=== PATIENT | female | born 1955 | race Caucasian/White ===

== ENCOUNTER 2022-11-05 13:15 | Outpatient (OUT) | payer MEDICARE, SELFPAY ==
--- NOTE | 2022-11-05 13:35 | XR_ITS ---
[address] [address] Patient Name: MINGO Rach PRIETO MRN: [facility]:[id number] date: 1955 Sex: F Assigned Patient Location: [facility] Current Patient Location: [facility] Accession/Order Number: [id number] Exam Date: 11/05/2022 13:40 Report Date: 11/05/2022 14:17 At the request of: MADDI BOSTON Procedure: XR abdomen 1V EXAM: XR abdomen 1V HISTORY: Kidney Stone N20.0 COMPARISON: None. TECHNIQUE: AP view of the abdomen. FINDINGS: Nonobstructive bowel gas pattern is noted. There is 6 mm calculus of the right renal region. The osseous structures are intact. IMPRESSION: Nonobstructive bowel gas pattern. Probable right nephrolithiasis. Electronically authenticated by: SHERIE BAEZ Date: 11/05/2022 14:17
== END 2022-11-05 13:16 ==
LOC: RAD 13:22
PROVIDERS: Visit Provider Urology
DX: N20.0 Calculus of kidney (principal)
CPT/HCPCS: 74018

== ENCOUNTER 2023-02-15 08:06 | Outpatient (OUT) | payer MEDICARE, SELFPAY ==
[2023-02-15 08:28] LABS: Estimated GFR (African America 52 (>=60); Estimated GFR (Non-African Ame 43 (>=60)
--- NOTE | 2023-02-15 08:35 | CT_ITS ---
[address] [address] Patient Name: MINGO PRIETO MRN: [id number] date: 1955 Sex: F Assigned Patient Location: LAB Current Patient Location: LAB Accession/Order Number: [id number] Exam Date: 02/15/2023 09:40 Report Date: 02/15/2023 15:35 At the request of: NON-STAFF PHYSICIAN Procedure: CT abdomen pelvis w con EXAMINATION: CT abdomen pelvis w con HISTORY: Recurrent Endometrial Cancer COMPARISON: 04/16/2022 TECHNIQUE: CT images were created with IV contrast. Axial, Coronal, and Sagittal images. Dose reduction techniques were achieved by using automated exposure control and/or adjustment of mA and/or kV according to patient size and/or use of iterative reconstruction technique. FINDINGS: LUNG BASES: No visible pulmonary or pleural disease. Stable, prominent heart size LIVER: Diffuse hypoattenuation. Nodular contour. Findings suggest cirrhosis. Hypodensity in the right hepatic lobe, nonspecific BILIARY: Layering hyperdensity likely cholelithiasis or gallbladder sludge. No CT evidence of acute cholecystitis PANCREAS: No lesion, fluid collection, ductal dilatation, or atrophy. SPLEEN: No enlargement or focal lesion. ADRENALS: No mass or enlargement. KIDNEYS: Inferior right renal hypodensity likely a cyst. No hydronephrosis or obstructing nephrolithiasis BOWEL/MESENTERY: Mild colonic diverticulosis without diverticulitis. Nonobstructive bowel gas pattern. AORTA/VASCULAR: No aortic aneurysm or dissection. Mild atherosclerosis RETROPERITONEUM: No mass or adenopathy. LYMPH NODES: No adenopathy. URINARY BLADDER: No visible focal wall thickening, lesion, or calculus. PELVIC ORGANS: Hysterectomy. Stable rim calcified cystic lesion in the left adnexa ABDOMINAL WALL: No mass or hernia. BONES: No bony lesion or fracture. Moderate degenerative changes with rotatory levocurvature OTHER: Negative. CT/CT abdomen pelvis w con IMPRESSION: No evidence of metastatic disease Nodular liver suggesting cirrhosis Cholelithiasis without CT evidence of acute cholecystitis Rim calcified left adnexal cystic lesion, stable Electronically authenticated by: VERÓNICA KRUSE Date: 02/15/2023 15:35
== END 2023-02-15 08:07 | disposition home or self-care (01) ==
LOC: LAB 08:06
DX: C54.1 Malignant neoplasm of endometrium (principal)
CPT/HCPCS: 36415; 74177; 82565; Q9967

== ENCOUNTER 2024-03-08 18:33 | Emergency (ER) | payer MEDICARE, SELFPAY ==
[2024-03-08 18:36] VITALS: BP 169/118; PULSE 76; TEMP 36.8; O2SAT 98; BMI 52.3
--- NOTE | 2024-03-08 18:47 | CT_ITS ---
The [address] [address] Patient Name: MINGO PRIETO MRN: [id number] date: 1955 Sex: F Assigned Patient Location: ER Current Patient Location: Accession/Order Number: [id number] Exam Date: 03/08/2024 19:40 Report Date: 03/08/2024 21:59 At the request of: LEROY CALLE Procedure: CT abdomen pelvis wo con EXAM: CT abdomen pelvis wo con HISTORY: left flank pain COMPARISON: None. TECHNIQUE: Unenhanced CT imaging of the abdomen and pelvis. This CT exam was performed using one or more of the following dose reduction techniques: Automated exposure control, adjustment of the mA and/or KV according to patient size, or use of iterative reconstruction technique. Unless otherwise stated, incidental findings do not require dedicated follow-up imaging. FINDINGS: There is bibasilar atelectasis. The heart size is normal. The liver has a nodular contour suggestive of cirrhosis. The spleen is mildly enlarged measuring 14 cm in length. There are gallstones in the gallbladder. The pancreas, adrenal glands, and kidneys have a normal noncontrast enhanced appearance. There is no hydronephrosis or renal calculus. The bowel is unobstructed. There is sigmoid diverticulosis without diverticulitis. There is a peripherally calcified left adnexal cyst measuring 6.2 cm. The bones are intact without acute abnormality. There is degenerative disc disease of the lumbar spine. CT/CT abdomen pelvis wo con IMPRESSION: 1. Cirrhosis with splenomegaly. 2. Indeterminate 6.2 cm peripherally calcified left adnexal cyst. This may be ovarian in origin. Recommend correlation with pre- and post-IV contrast-enhanced MRI of the pelvis. 3. Cholelithiasis. Electronically authenticated by: GILLIAN FIERRO Date: 03/08/2024 21:59
--- NOTE | 2024-03-08 18:48 | ED_ITS ---
<Statement entered by Dre Powell MD - 03/09/24 09:22> This documentation has been reviewed and approved. Chart was sent to my inbox for administrative and group management purposes. I was the attending physicians working during the patients hospital course. The patient was seen and managed independently by the MLP. I did not personally see or evaluate this patient, nor was I involved in the patient medical decision making process or plans of care. Pt was dispositioned by the MLP with complete independence, I was available for consultation should the MLP request during this patients ED stay during the initial presentation. Patient supervision was taken over at 7pm by incoming physician Documented by User: SIMA Beatty 03/08/24 20:54 HPI HPI - General Adult General Chief complaint: Abdominal Pain Stated complaint: flank pain Time Seen by Provider: 03/08/24 18:39 Source: patient Mode of arrival: walk-in History of Present Illness HPI narrative: Patient is a 68-year-old female presents to the ER with concerns of left flank pain. Patient states symptoms started abruptly around 430 just before dinner. At times nauseous with increased pain, states it can be 11/10. Radiating left flank. She denies vomiting or having diarrhea. She did feel okay earlier in the day. Patient denies any chest pain or shortness of breath, she has a pertinent history of diabetes and was previously treated for ovarian cancer and was recently told she was cancer free. Patient uses a walker. Does report a remote history of kidney stones. She denies any acute chest pain or shortness of breath. Reports she is up-to-date on all vaccinations and denies any history of shingles. Denies trauma or fall. Treatments prior to arrival: Reports none Related Data Allergies Allergy/AdvReac Type Severity Reaction Status Date / Time egg Allergy Severe Hives Verified 03/08/24 18:47 Sulfa (Sulfonamide Allergy Severe Hives Verified 03/08/24 18:47 Antibiotics) Opioid HPI Opioid Management Most Recent Opioid Data: Last Pain Scale 5 03/08/24 19:12 Review of Systems ROS Constitutional Denies: fever or chills Ears, nose, mouth, and throat Denies: throat pain, neck pain or throat swelling Cardiovascular Reports: edema and swelling of feet/ankles; Denies: chest pain, palpitations or lightheadedness Respiratory Denies: shortness of breath or cough Gastrointestinal Reports: abdominal pain and nausea; Denies: vomiting, coffee grounds in vomit, diarrhea or constipation Genitourinary Denies: painful urination Musculoskeletal Denies: back pain, neck pain or extremity pain Integumentary/Breast Denies: rash, itching or redness Neurological Denies: headache Psychiatric Denies: anxiety or mood swings Endocrine Denies: excessive urination or excessive thirst Allergic/Immunologic Denies: hives, throat swelling or tongue swelling PFSH PFSH Social History Little interest or pleasure in doing things: not at all Feeling down, depressed, or hopeless: not at all Exam Narrative Exam Narrative: Nurses notes and vital signs reviewed and patient is not hypoxic. General: The patient appears well and in no apparent distress, rates pain 11/10. Patient is resting comfortably on cart, easy transfer with minimal judicial assistant from wheelchair to bed, typically uses walker. Skin: Warm, dry, no pallor noted.No evidence of zoster like rash Head: Normocephalic, atraumatic Neck: Supple, trachea mid-line, no tenderness, no lymphadenopathy Eye: Pupils are equal, round and reactive to light, EOMI Ears, Nose, Mouth, and Throat: External exam unremarkable Cardiovascular: Regular Rate and Rhythm Respiratory: Patient is in no distress, no accessory muscle use, lungs are clear to auscultation, no wheezing, rales or rhonchi. Chest Wall: no tenderness, denies rib tenderness. Back: non-tender, mild pain left sided CVA tenderness Musculoskeletal: normal ROM, no tenderness, chronic lower leg edema 3+, no pain with PROM bilateral hips. GI: Normal bowel sounds, + tenderness to Left side mid abdomen and flank. no masses appreciated. No rebound, guarding, or rigidity noted. Neurological: A&O x4 Psychiatric: Cooperative Constitutional Vital Signs, click to edit/add: Last Vital Signs Temp 98.3 F 03/08/24 18:36 Pulse 76 03/08/24 18:36 Resp 22 H 03/08/24 18:36 BP 146/73 H 03/08/24 21:11 Pulse Ox 98 03/08/24 18:36 O2 Del Method Room Air 03/08/24 18:36 Course Vital Signs Vital signs: Vital Signs Temperature 98.3 F 03/08/24 18:36 Pulse Rate 76 03/08/24 18:36 Respiratory Rate 22 H 03/08/24 18:36 Blood Pressure 169/118 H 03/08/24 18:36 Pulse Oximetry 98 03/08/24 18:36 Oxygen Delivery Method Room Air 03/08/24 18:36 Temperature 98.3 F 03/08/24 18:36 Pulse Rate 76 03/08/24 18:36 Respiratory Rate 22 H 03/08/24 18:36 Blood Pressure 146/73 H 03/08/24 21:11 Pulse Oximetry 98 03/08/24 18:36 Oxygen Delivery Method Room Air 03/08/24 18:36 Medical Decision Making MDM Narrative Medical decision making narrative: Patient presents with abrupt onset left flank pain, nausea, sharp pain. ( history of ovarian/ vaginal cancer- recently taken off chemo pills per pt they told me I am cancer free. Oncologist in [place], [facility] Pt agreeable to IV toradol and zofran for symptoms pending labs and CT scan.. Prior history of Kidney stone 2021. Patient reevaluated after Zofran and Toradol, patient reports pain down to a 5/10. She declines the need for any additional pain medicine at this time. She reports a known cyst in her pelvis that has been stable for many years related to a surgery for her ovarian cancer. Patient appears much more comfortable, we discussed her laboratory studies. She denies any Motrin or Aleve use has been taking Tylenol. Will wait CT imaging report given hematuria and flank pain. Lab Data Labs: Lab Results 03/08/24 03/08/24 Range/Units 18:55 19:00 WBC 8.0 (4.0-11.0) 10^3/uL RBC 3.48 L (4.20-5.40) 10^6/uL Hgb 11.9 L (12.0-16.0) g/dL Hct 35.5 L (36.0-48.0) % MCV 102.0 H (81.0-99.0) fL MCH 34.2 H (26.7-34.0) pg MCHC 33.5 (29.9-35.2) g/dL RDW 13.0 (11.0-15.0) % Plt Count 163 (150-450) 10^3/uL MPV 10.4 (9.5-13.5) fL Neut % (Auto) 75.7 H (43.0-75.0) % Lymph % (Auto) 14.5 L (20.5-60.0) % Wilson % (Auto) 7.7 (1.7-12.0) % Eos % (Auto) 1.4 (0.9-7.0) % Baso % (Auto) 0.3 (0.2-2.0) % Neut # (Auto) 6.0 (1.4-6.5) 10^3/uL Lymph # (Auto) 1.2 (1.2-3.8) 10^3/uL Wilson # (Auto) 0.6 (0.3-0.8) 10^3/uL Eos # (Auto) 0.1 (0.0-0.7) 10^3/uL Baso # (Auto) 0.0 (0.0-0.1) 10^3/uL Abs Immat Gran (auto) 0.03 (0.00-0.03) 10^3/uL Imm/Tot Granulo (auto) 0.4 (0.0-0.5) % Sodium 139 (136-145) mmol/L Potassium 3.8 (3.5-5.1) mmol/L Chloride 105 (98-107) mmol/L Carbon Dioxide 23.4 (21.0-32.0) mmol/L Anion Gap 14.4 BUN 22.0 H (7.0-18.0) mg/dL Creatinine 1.42 H (0.55-1.02) mg/dL Est GFR ( Amer) 44 L (>=60 mL/min/1.73m^2) Est GFR (Non-Af Amer) 37 L (>=60 mL/min/1.73m^2) BUN/Creatinine Ratio 15.5 Glucose 246 H (74-106) mg/dL Lactate 2.8 H* (0.4-2.0) mmol/L Calcium 8.6 (8.5-10.1) mg/dL Total Bilirubin 0.4 (0.2-1.0) mg/dL AST 19 (15-37) U/L ALT 27 (14-59) U/L Alkaline Phosphatase 93 (46-116) U/L Troponin I High Sens 8.4 (4.0-51.3) pg/mL Total Protein 7.6 (6.4-8.2) g/dL Albumin 3.1 L (3.4-5.0) g/dL Globulin 4.5 g/dL Albumin/Globulin Ratio 0.7 Lipase 73.0 (16.0-77.0) U/L Urine Color Yellow (YELLOW) Urine Clarity Clear (CLEAR) Urine pH 6.0 (5.0-9.0) Ur Specific [place] >=1.030 A (1.005-1.025) Urine Protein Trace (NEG/TRACE) mg/dL Urine Glucose (UA) 500 A (NEGATIVE) mg/dL Urine Ketones Trace A (NEGATIVE) mg/dL Urine Occult Blood Large A (NEGATIVE) Urine Nitrite Negative (NEGATIVE) Urine Bilirubin Negative (NEGATIVE) Urine Urobilinogen 1.0 (0.2-1.0) EU/dL Ur Leukocyte Esterase Trace A (NEGATIVE) Urine RBC 50-75 A (0-2) #/HPF Urine WBC 10-20 A (NONE SEEN) #/HPF Ur Squamous Epith Cells Many A (NONE/RARE) #/LPF Urine Crystals None seen (None Seen) #/HPF Urine Bacteria Large A (NONE SEEN) #/HPF Urine Casts None seen (NONE SEEN) #/LPF Urine Mucus Trace A (NONE SEEN) Ur Culture Indicated? Yes Imaging Data Abdominal x-ray: Radiologist's impression: ITS Impressions Abdomen/Pelvis CT 03/08/24 18:47 IMPRESSION: 1. Cirrhosis with splenomegaly. 2. Indeterminate 6.2 cm peripherally calcified left adnexal cyst. This may be ovarian in origin. Recommend correlation with pre- and post-IV contrast-enhanced MRI of the pelvis. 3. Cholelithiasis. Electronically authenticated by: GILLIAN FIERRO Date: 03/08/2024 21:59 Chest X-Ray 03/08/24 19:51 IMPRESSION: Cardiomegaly with likely pulmonary vascular congestion. Electronically authenticated by: Osmany YATES Date: 03/08/2024 21:10 Discharge Plan Discharge Chief Complaint: Abdominal Pain Clinical Impression: Acute left flank pain, Acute UTI Patient Disposition: Home, Self-Care Mode of Transportation: Private Vehicle Print Language: [place] Instructions: Flank Pain (ED), Urinary Tract Infection in Older Adults (ED) Additional Instructions: follow up with your family doctor in next 2-3 days for recheck Referrals: NELY DAWSON [Primary Care Provider] - 1 week Documented by User: Julio Babb MD 03/08/24 22:24 HPI HPI - General Adult General Chief complaint: Abdominal Pain Stated complaint: flank pain Time Seen by Provider: 03/08/24 18:39 Related Data Allergies Allergy/AdvReac Type Severity Reaction Status Date / Time egg Allergy Severe Hives Verified 03/08/24 18:47 Sulfa (Sulfonamide Allergy Severe Hives Verified 03/08/24 18:47 Antibiotics) Opioid HPI Opioid Management Most Recent Opioid Data: Last Pain Scale 5 03/08/24 19:12 PFSH PFSH Social History Little interest or pleasure in doing things: not at all Feeling down, depressed, or hopeless: not at all Exam Constitutional Vital Signs, click to edit/add: Last Vital Signs Temp 98.3 F 03/08/24 18:36 Pulse 76 03/08/24 18:36 Resp 22 H 03/08/24 18:36 BP 146/73 H 03/08/24 21:11 Pulse Ox 98 03/08/24 18:36 O2 Del Method Room Air 03/08/24 18:36 Course Vital Signs Vital signs: Vital Signs Temperature 98.3 F 03/08/24 18:36 Pulse Rate 76 03/08/24 18:36 Respiratory Rate 22 H 03/08/24 18:36 Blood Pressure 169/118 H 03/08/24 18:36 Pulse Oximetry 98 03/08/24 18:36 Oxygen Delivery Method Room Air 03/08/24 18:36 Temperature 98.3 F 03/08/24 18:36 Pulse Rate 76 03/08/24 18:36 Respiratory Rate 22 H 03/08/24 18:36 Blood Pressure 146/73 H 03/08/24 21:11 Pulse Oximetry 98 03/08/24 18:36 Oxygen Delivery Method Room Air 03/08/24 18:36 Medical Decision Making MDM Narrative Medical decision making narrative: Patient presents with abrupt onset left flank pain, nausea, sharp pain. ( history of ovarian/ vaginal cancer- recently taken off chemo pills per pt they told me I am cancer free. Oncologist in [place], [facility]. Pt agreeable to IV toradol and zofran for symptoms pending labs and CT scan.. Prior history of Kidney stone 2021. Patient reevaluated after Zofran and Toradol, patient reports pain down to a 5/10. She declines the need for any additional pain medicine at this time. She reports a known cyst in her pelvis that has been stable for many years related to a surgery for her ovarian cancer. Patient appears much more comfortable, we discussed her laboratory studies. She denies any Motrin or Aleve use has been taking Tylenol. Will wait CT imaging report given hematuria and flank pain. care transferred at end of PA shift. CT without acute findings. Known left ovarian mass. Patient re evaluated and is now feeling better. No pain. UA with pyuria and cultures ordered. will treat as UTI with macrobid and prescrption for toradol Lab Data Labs: Lab Results 03/08/24 03/08/24 Range/Units 18:55 19:00 WBC 8.0 (4.0-11.0) 10^3/uL RBC 3.48 L (4.20-5.40) 10^6/uL Hgb 11.9 L (12.0-16.0) g/dL Hct 35.5 L (36.0-48.0) % MCV 102.0 H (81.0-99.0) fL MCH 34.2 H (26.7-34.0) pg MCHC 33.5 (29.9-35.2) g/dL RDW 13.0 (11.0-15.0) % Plt Count 163 (150-450) 10^3/uL MPV 10.4 (9.5-13.5) fL Neut % (Auto) 75.7 H (43.0-75.0) % Lymph % (Auto) 14.5 L (20.5-60.0) % Wilson % (Auto) 7.7 (1.7-12.0) % Eos % (Auto) 1.4 (0.9-7.0) % Baso % (Auto) 0.3 (0.2-2.0) % Neut # (Auto) 6.0 (1.4-6.5) 10^3/uL Lymph # (Auto) 1.2 (1.2-3.8) 10^3/uL Wilson # (Auto) 0.6 (0.3-0.8) 10^3/uL Eos # (Auto) 0.1 (0.0-0.7) 10^3/uL Baso # (Auto) 0.0 (0.0-0.1) 10^3/uL Abs Immat Gran (auto) 0.03 (0.00-0.03) 10^3/uL Imm/Tot Granulo (auto) 0.4 (0.0-0.5) % Sodium 139 (136-145) mmol/L Potassium 3.8 (3.5-5.1) mmol/L Chloride 105 (98-107) mmol/L Carbon Dioxide 23.4 (21.0-32.0) mmol/L Anion Gap 14.4 BUN 22.0 H (7.0-18.0) mg/dL Creatinine 1.42 H (0.55-1.02) mg/dL Est GFR ( Amer) 44 L (>=60 mL/min/1.73m^2) Est GFR (Non-Af Amer) 37 L (>=60 mL/min/1.73m^2) BUN/Creatinine Ratio 15.5 Glucose 246 H (74-106) mg/dL Lactate 2.8 H* (0.4-2.0) mmol/L Calcium 8.6 (8.5-10.1) mg/dL Total Bilirubin 0.4 (0.2-1.0) mg/dL AST 19 (15-37) U/L ALT 27 (14-59) U/L Alkaline Phosphatase 93 (46-116) U/L Troponin I High Sens 8.4 (4.0-51.3) pg/mL Total Protein 7.6 (6.4-8.2) g/dL Albumin 3.1 L (3.4-5.0) g/dL Globulin 4.5 g/dL Albumin/Globulin Ratio 0.7 Lipase 73.0 (16.0-77.0) U/L Urine Color Yellow (YELLOW) Urine Clarity Clear (CLEAR) Urine pH 6.0 (5.0-9.0) Ur Specific [place] >=1.030 A (1.005-1.025) Urine Protein Trace (NEG/TRACE) mg/dL Urine Glucose (UA) 500 A (NEGATIVE) mg/dL Urine Ketones Trace A (NEGATIVE) mg/dL Urine Occult Blood Large A (NEGATIVE) Urine Nitrite Negative (NEGATIVE) Urine Bilirubin Negative (NEGATIVE) Urine Urobilinogen 1.0 (0.2-1.0) EU/dL Ur Leukocyte Esterase Trace A (NEGATIVE) Urine RBC 50-75 A (0-2) #/HPF Urine WBC 10-20 A (NONE SEEN) #/HPF Ur Squamous Epith Cells Many A (NONE/RARE) #/LPF Urine Crystals None seen (None Seen) #/HPF Urine Bacteria Large A (NONE SEEN) #/HPF Urine Casts None seen (NONE SEEN) #/LPF Urine Mucus Trace A (NONE SEEN) Ur Culture Indicated? Yes Imaging Data Abdominal x-ray: Radiologist's impression: ITS Impressions Abdomen/Pelvis CT 03/08/24 18:47 IMPRESSION: 1. Cirrhosis with splenomegaly. 2. Indeterminate 6.2 cm peripherally calcified left adnexal cyst. This may be ovarian in origin. Recommend correlation with pre- and post-IV contrast-enhanced MRI of the pelvis. 3. Cholelithiasis. Electronically authenticated by: GILLIAN FIERRO Date: 03/08/2024 21:59 Chest X-Ray 03/08/24 19:51
[2024-03-08 19:03] VITALS: BP 173/86
[2024-03-08] MEDS: KETOROLAC TROMETHAMINE 30 MG/ML VIAL IVP (19:09)
[2024-03-08] MEDS: ONDANSETRON PF 4 MG/2 ML VIAL IV (19:09)
[2024-03-08 19:16] LABS: Basophils Percent Auto 0.3 % (0.2-2.0); Eosinophils Absolute Auto 0.1 10^3/uL (0.0-0.7); Eosinophils Percent Auto 1.4 % (0.9-7.0); Hematocrit 35.5 % (36.0-48.0); Hemoglobin 11.9 g/dL (12.0-16.0); Immature Granulocytes Abs Auto 0.03 10^3/uL (0.00-0.03); Immature Granulocytes Pct Auto 0.4 % (0.0-0.5); Lymphocytes Absolute Auto 1.2 10^3/uL (1.2-3.8); Lymphocytes Percent Auto 14.5 % (20.5-60.0); Mean Corpuscular HGB Conc 33.5 g/dL (29.9-35.2); Mean Corpuscular Hemoglobin 34.2 pg (26.7-34.0); Mean Platelet Volume 10.4 fL (9.5-13.5); Monocytes Absolute Auto 0.6 10^3/uL (0.3-0.8); Monocytes Percent Auto 7.7 % (1.7-12.0); Neutrophils Percent Auto 75.7 % (43.0-75.0); Platelet Count 163 10^3/uL (150-450); Red Blood Count 3.48 10^6/uL (4.20-5.40)
[2024-03-08 19:27] LABS: Alanine Aminotransferase 27 U/L (14-59); Albumin Globulin Ratio 0.7; Albumin Level 3.1 g/dL (3.4-5.0); Alkaline Phosphatase 93 U/L (46-116); Anion Gap 14.4; Aspartate Amino Transferase 19 U/L (15-37); BUN Creatinine Ratio 15.5; Bilirubin Total 0.4 mg/dL (0.2-1.0); Calcium 8.6 mg/dL (8.5-10.1); Carbon Dioxide 23.4 mmol/L (21.0-32.0); Chloride 105 mmol/L (98-107); Estimated GFR (African America 44 (>=60 mL/min/1.73m^2); Estimated GFR (Non-African Ame 37 (>=60 mL/min/1.73m^2); Globulin 4.5 g/dL; Glucose 246 mg/dL (74-106); Potassium 3.8 mmol/L (3.5-5.1); Sodium 139 mmol/L (136-145); Total Protein 7.6 g/dL (6.4-8.2)
[2024-03-08 19:30] LABS: Troponin I High Sensitivity 8.4 pg/mL (4.0-51.3)
[2024-03-08 19:33] LABS: Lactate/Lactic Acid 2.8 mmol/L (0.4-2.0)
[2024-03-08 19:42] LABS: Bilirubin Urine NEGATIVE (NEGATIVE); Blood Urine LARGE (NEGATIVE); Clarity Urine CLEAR (CLEAR); Color Urine YELLOW (YELLOW); Glucose Urine UA 500 mg/dL (NEGATIVE); Ketones Urine TRACE mg/dL (NEGATIVE); Leukocyte Esterase Urine TRACE (NEGATIVE); Nitrite Urine NEGATIVE (NEGATIVE); Protein Urine TRACE mg/dL (NEG/TRACE); Specific Gravity Urine >=1.030 (1.005-1.025)
[2024-03-08 19:43] LABS: Urine Microscopic Indicated YES
--- NOTE | 2024-03-08 19:51 | XR_ITS ---
The [address] [address] Patient Name: MINGO PRIETO MRN: [id number] date: 1955 Sex: F Assigned Patient Location: ER Current Patient Location: ER Accession/Order Number: [id number] Exam Date: 03/08/2024 20:09 Report Date: 03/08/2024 21:10 At the request of: LEROY CALLE Procedure: XR chest 1V EXAM: XR chest 1V HISTORY: flank pain COMPARISON: None TECHNIQUE: Portable FINDINGS: Cardiomegaly seen. There is likely pulmonary vascular congestion. No focal consolidations demonstrated. XR/XR chest 1V IMPRESSION: Cardiomegaly with likely pulmonary vascular congestion. Electronically authenticated by: Osmany YATES Date: 03/08/2024 21:10
[2024-03-08 20:12] LABS: RBC Urine 50-75 #/HPF (0-2)
[2024-03-08 20:13] LABS: Bacteria Urine LARGE #/HPF (NONE SEEN); Mucus Urine TRACE (NONE SEEN); Squamous Epithelial Cell Urine MANY #/LPF (NONE/RARE)
[2024-03-08 20:14] LABS: Cast Seen? NONE SEEN #/LPF (NONE SEEN); Crystals Seen? None Seen #/HPF (None Seen)
[2024-03-08 20:15] LABS: Urine Culture Indicated YES
[2024-03-08 21:11] VITALS: BP 146/73
[2024-03-08] MEDS: KETOROLAC TROMETHAMINE 10 MG TABLET PO (22:37)
[2024-03-08] MEDS: NITROFURANTOIN MONOHYD/MAC-CRST 100 MG CAPSULE PO (22:37)
[2024-03-08 22:39] VITALS: BP 146/73; PULSE 75; O2SAT 96
== END 2024-03-08 22:41 | disposition home or self-care (01) ==
PROVIDERS: Personal Emergency Response Attendant; Emergency Provider Internal Medicine; PCP Family Medicine
DX: N39.0 Urinary tract infection, site not specified (principal); R10.9 Unspecified abdominal pain; E11.9 Type 2 diabetes mellitus without complications; Z85.43 Personal history of malignant neoplasm of ovary; Z87.442 Personal history of urinary calculi
CPT/HCPCS: 36415; 71045; 74176; 80053; 81001; 83605; 83690; 84484; 85025; 87086; 96374; 96375; 99285; J1885; J2405

== ENCOUNTER 2025-04-24 18:52 | Emergency (ER) | payer MEDICARE, SELFPAY ==
--- OUTSIDE RECORDS SUMMARY | 2024-05-08 04:30 | XMS_ITS ---
Author Organization [facility] vices Address [address] [place], [place] [id number] Care Team Providers Care [employer] And Repairer Name Role Phone Melodie Mckeon Primary Care Provider [phone] Nina Dong Unavailable [phone] REASON FOR VISIT 3m DM, HTN Social History Sex Assigned At : Social History Observation Description Sex Assigned At Female Encounters Encounter Location Date Provider Diagnosis [place] [address] [place] [address] [id number] 05/08 Nina Dong Plan Of Treatment Next Appt Details Provider Name:Melodie black, 07/20/2025 08:30:00 AM, [facility] [place], [place], [id number], Progress Notes * Storm SILVAOB:1955 (69 yo F)Acc No.[id number]:05/08/2024 Medical Note Patient: Julita Cadet :?Nina DongDOB:1955???Age:68 Y???Sex:Female Date:4Phone:[phone]:[address], [address], [place], [id number]:Melodie Mckeon Subjective: * Chief Complaints: * 3 m DM, HTN * Electronic signature of THERESA Barton on 04/24/2025 at 08:21 PM ESTSign off status: Pending * Provider: Diane Dong Date: 07/09/2023 Generated for Printing/Faxing/eTransmitting on:?04/24/2025 08:21 PM EST
--- OUTSIDE RECORDS SUMMARY | 2025-04-20 03:45 | XMS_ITS ---
Author Organization [facility] vices Address [address] [place], [place] [id number] Care Team Providers Care Yeast Maker Name Role Phone Melodie Mckeon Primary Care Provider Allergies Allergen (clinical drug ingredient) Drug/Non Drug Allergy documented on EMR Reaction Allergy Type Onset Date Status egg (chicken) allergenic extract Whole Egg (Diagnostic ) Hives , Rash Drug Allergy ActivesulfacetamideSulfacetamidehivesDrug AllergyActive Results Component Value Reference Range Flag Notes POCT A1C Reviewed date:04/20/2025 09:02:51 AM Interpretation:6.1 Performing Lab: Notes/Report: Result 6.1 0-5.6 % H REASON FOR VISIT wellness Medications Medication SIG (Take, Route, Frequency, Duration) Notes Start Date End Date Status Lasix 20 MG Tablet 1 tablet Orally Once a day; D uration: 30 days 03/16/2024Not-Taking/PRNmetFORMIN HCl 500 MG Tablet1 tablet with a meal Orally twice a day; Duration: 90 daysActiveGabapentin 300 MG Capsule1 capsule Orally twice a day; Duration: 90 days5ActiveMetoprolol Tartrate 50 MG Tablet1 tablet with food Orally three times a day; Duration: 90 daysActiveLisinopril 40 MG TabletTAKE 1 TABLET BY MOUTH DAILY Orally Once a day; Duration: 90 daysActive Myrbetriq 25 MG Tablet Extended Release 24 Hour1 tablet Orally Once a day; Duration: 30 days5ActiveMultivitamin Adults 50+ - Tabletas directed Orally dailyActive Social History Sex Assigned At : Social History Observation Description Sex Assigned At Female Social History Sexual History:Social InfoQuestionAnswerNotesFamily PlanningAre you or your partner planning on becoming in the next year if not already ? No? What type of contraception are you using?Female Sterilization Vital Signs Temperature 98.2 degrees Fahrenheit 04/20/20 25 Blood pressure systolic 126 mm Hg 04/20/20 25 Blood pressure diastolic 78 mm Hg 025 Heart Rate 55 /min 04/20/2025 Respiratory Rate 20 /min 04/20/2025 Height 62.50 in 04/20/2025 Weight 299.6 lbs 04/20/2025 BMI 53.92 kg/m2 04/20/2025 Oximetry 96 % 04/20/2025 Height-cm 158.75 cm 04/20/2025 Weight-kg 135.9 kg 04/20/2025 Asia Del Cid 04/20/2025 08:50:35 AM EST > Encounters Encounter Location Date Provider Diagnosis [address] [id number] 04/20/2025 Melodiechance Mckeon Well adult exam Z0 0.00 ; Screening for diabetes mellitus Z13.1 ; Overactive bladder N32.81 and Colon cancer screening declined Z53.20 Assessments Encounter Date Diagnosis (ICD Code) Assessment Notes Treatment Notes Treatment Clinical Notes Section Notes 04/20/2025 Well adult exam (ICD-10 - Z00.00 ) Patient presents to office today for their Medicare Annual Wellness Visit. Education was provided on healthy nutrition, including a diet rich in fruits and vegetables, minimizing simple carbohydrates, salt, and saturated fats. Encouraged regular cardiovascular exercise suchas walking at least 30 minutes daily, 5 times per week. Emphasized preventive health measures and educated pt on fall prevention and community-based lifestyle interventions to help reduce health risks and promote healthy living. 04/20/2025Screening for diabetes mellitus (ICD-10 - Z13.1) Pt has Prediabetes w/ an A1C of 6.1 Discussed risk of getting diagnosed w/ diabetes if unable to make lifestyle changes and modify riskfactors Pt encouraged to reduce carbohydrate, sugar, pop intake, prioritize protein, fruits and vegetables,and water intake. Pt also encouraged to exercise if able to reduce their risk. F/U 3 months & PRN 04/20/2025Overactive bladder (ICD-10 - N32.81) Insurance company would like to stop oxybutynin and recommended Myrbetriq if a safe alternative Patient would like to try to switch due to the cost of oxybutynin after the first of the year Stop oxybutynin and start myrbetriq 04/20/2025olon cancer screening declined (ICD-10 - Z53.20)Educated on the importance of coloncancer screenings, patient verbalizes understanding and declines Plan Of Treatment Medication Medication Name Sig Start Date Stop Date Notes oxyBUTYnin Chloride 5 MG Tablet TAKE 1 T ABLET EVERY MORNING AND TAKE 2 TABLETS EVERY EVENING Myrbetriq 25 MG Tablet Extended Release 24 Hour1 tablet Orally Once a day; Duration: 30 days04/21/2025Treatment Notes Assessment Notes Well adult exam Patient presents to office today for their Medicare Annual Wellness Visit. Education was provided on healthy nutrition, including a diet rich in fruits and vegetables, minimizing simple carbohydrates, salt, and saturated fats. Encouraged regular cardiovascular exercise such as walking at least 30 minutes daily, 5 times per week. Emphasized preventive health measures and educated pt on fall prevention and community-based lifestyle interventions to help reduce health risks and promote healthy living. Screening for diabetes mellitus Pt has Prediabetes w/ an A1C of 6.1 Discussed risk of getting diagnosed w/ diabetes if unable to make lifestyle changes and modify risk factors Pt encouraged to reduce carbohydrate, sugar, pop intake, prioritize protein, fruits and vegetables, and water intake. Pt also encouraged to exercise if able to reduce their risk. F/U 3 months & PRN Overactive bladder Insurance company would like to stop oxybutynin and recommended Myrbetriq if a safe alternative Patient would like to try to switch due to the cost of oxybutynin after the first of the year Stop oxybutynin and start myrbetriq Colon cancer screening declined Educated on the importance of coloncancer screenings, patient verbalizes understanding and declines Next Appt Details Follow Up: 1 Year,prn, Danielle n: Medicare Wellness Provider Name:Melodie black, 07/20/2025 08:30:00 AM, [address], [place], [id number], History and Physical Notes * HPI (History of Present Illness) CategorySub-CategoryDetailNotesCategory NotesAnnual VisitHealth risk assessment GENERAL HEALTH / PAIN ASSESSMENT: - No Mammogram, was supposed to be done at the [facility] in March but oncologist said she didn't need it No colonoscopy Had labs in december - How would you describe the ease with which you can prepare your own food?: very easy- How would you describe the ease with which you can bathe or clean yourself?: very easy- How would you describe the ease with which you can dress yourself?: very easy- How hard is it to use the toilet by yourself?: not hard at all- How would you describe the ease with which you can do your own shopping?: easy- How would you describe the ease with which you can get around your house?: easy- How would you describe your ability to pay your bills?: very good- How would you describe your ability to plan your daily and monthly budgets?: very good- How would you describe your ability to do routine housework?: goodHOME SAFETY / ASSISTANCE: -- Do you feel like you are safe in your current home?: yes - How many times have you fallen in your home?: never- How much would you need to change your living circumstances to feel safe?: not at all- Do you feel that living somewhere else would be good for you?: no- How much help do you feel you need at home?: none at all- How much does your family help with daily or routine chores?: a littleVision screening-: patient sees regular ice sculptor or optometristHearing screening-: no gross abnormalitiesFall risk and home safety Get Up and Go Evaluation: over 20 secondsMedication evaluation and reconciliation performed: yesPsychosocial risks-: no overt psychosocial risks shown, observed, or mentionedBehavioral risks-: patient seems very well adjusted and no behavioral issues notedActivities of daily living-: not impairedCognitive screening-: no overt cognitive deficiency is apparent by direct observation Patient care teamPatient see's Dr Callaway in [place], ([place]rology) [facility] ExamDate of last annual exam:unknownScreening recommendations reviewed and updated in Preventive medicine: YesMetabolic ScreeningLipid profile last done: Glucose screening last done: Dietmoderate portion size, 3 meals a day, fruit and vegetableExerciseDoes not exerciseSleep7 hours but with interuptions.Water [id number] dailyColon Cancer ScreeningNot Done - Recommended: 04/20/2025ImmunizationsAge Appropriate Immunizations Recommended: YesAdvanced DirectivesLiving Will: YesPower of Elementary School Music Teacher for Health Care: YesDNR: Yes? Type: DNR-CCA Examination CategorySub-CategoryDetailNotesCategory NotesGeneral Examination General appearance: alert, pleasant, well-nourished and in no acute distress. Head: normocephalic, atraumatic. Eyes: pupils equal, round, reactive to light and accommodation. Ears: auditory canal clear, tympanic membrane intact and clear bilaterally. Nose: nares patent , sinuses nontender bilaterally. Oral cavity: tongue is midline , palate normal , mucosa moist. Skin: skin is warm and dry, with no rashes, good skin turgor and normal hair distribution. Heart: regular rate and rhythm without murmurs, gallops, clicks or rubs. Lungs: clear to auscultation bilaterally, with good air movement and no rales, rhonchi or wheezes. Extremities: normal extremity with no clubbing, cyanosis or edema , full range of motion. Uses a walker Psych: alert and oriented x 3 , cooperative with exam , normal affect / mood , speech is clear and coherent. CQM ExceptionsCurrently taking Aspirin:Aspirin Use:: No Progress Notes * Preet SILVAeDOB:1955 (69 yo F)Acc No.[id number]:04/20/2025 Medical Note Patient: Lexie Cadetyce :?Melodie Mckeon APRN, SCREEN CUTTER AND TRIMMER-CDOB:1955???Age: 69 Y???Sex:FemaleDate:04/20/2025Phone:[phone]:[address], [address], [place], [id number] In:08:38 AM EST Subjective: * Chief Complaints: * W ellness * HPI: ???Annual Visit:?Annual Exam?Date of last annual exam?unknown ?Screening recommendations reviewed and updated in Preventive medicine? Yes ?Diet?moderate portion size, 3 meals a day, fruit and vegetable.?Water Intake?48oz daily.?Exercise?Does not exercise.?Sleep?7 hours but with interuptions.?Behavioral risks?-?patient seems very well adjusted and no behavioral issues noted ?Psychosocial risks?-?no overt psychosocial risks shown, observed, or mentioned ?Health risk assessment?GENERAL HEALTH / PAIN ASSESSMENT?- ?- How would you describe the ease with which you can prepare your own food??very easy ?- How would you describe the ease with which you can bathe or clean yourself??very easy ?- How would you describe the ease with which you can dress yourself?? very easy ?- How hard is it to use the toilet by yourself??not hard at all ?- How would you describe the ease with which you can do your own shopping??easy ?- How would you describe the ease with which you can get around your house??easy ?- How would you describe your ability to pay your bills??very good ?- How would you describe your ability to planyour daily and monthly budgets??very good ?- How would you describe your ability to do routine housework??good ?HOME SAFETY / ASSISTANCE?- ?- Do you feel like you are safe in your current home??yes ?- How many times have you fallen in your home??never ?- How much would you need to change your living circumstances to feel safe??not at all ?- Do you feel that living somewhere else would be good for you??no ?- How much help do you feel you need at home? none at all ?- How much does your family help with daily or routine chores??a little ?Fall risk and home safety?Get Up and Go Evaluation?over 20 seconds ?Medication evaluation and reconciliation performed?yes ?Activities of daily living?-?not impaired ?Cognitive screening?-?no overt cognitive deficiency is apparent by direct observation ?Patient care team?Patient see's Dr Callaway in [place], (nephrology) ?Oncology in [place].?Vision screening?-?patient sees regular ice sculptor or health promotion officer ?Hearing screening?-?no gross abnormalities ?Metabolic Screening?Lipid profile last done?Glucose screening last done?Colon Cancer Screening?Not Done - Recommended?04/20/2025 ?Immunizations?Age Appropriate Immunizations Recommended Yes ?Advanced Directives?Living Will?Yes ?Power of Elementary School Music Teacher for Health Care?Yes ?DNR?Yes ?Type?DNR-CCA ?No Mammogram, was supposed to be done at the [facility] in March but oncologist said she didn't need it No colonoscopy Had labs in december. * ROS: ???Positive and negative as described above in the HPI. * Medical History: Diabetes mellitus, controlled Hyperglycemia Hypertension Uterine Cancer Vaginal cancer Medical History Verified? * Surgical History: Cataract Extraction-Left ? vaginal cancer reconstruction ? Tubal Ligation ? cataract right eye extraction 07/10/2021? kidney stone removed 04/15/2022? EXTENSIVE HYSTERECTOMY ? Surgical History verified.? * Hospitalization/Major Diagno stic Procedure: kidney stone 04/15/2022? see surgical hx ? Hospitalization Verified.? * Family History: F ather: . M other: . P aternal Grand Father: . P aternal Grand Mother: . M aternal Grand Father: . M aternal Grand Mother: .?Brother: alive. S ister: alive. F amily History Verified.. * Social History: ???Sexual History:?Family Planning?Are you or your partner planning on becoming in the next year if not already ??No ?What type of contraception are you using? Female Sterilization ???Social History Verified. * Medications: T akingMultivitamin Adults 50+ - Tablet as directed Orally daily oxyBUTYnin Chloride 5 MG Tablet TAKE 1 TABLET EVERY MORNING AND TAKE 2 TABLETS EVERY EVENING Lisinopril 40 MG Tablet TAKE 1 TABLET BY MOUTH DAILY Orally Once a day Metoprolol Tartrate 50 MG Tablet 1 tablet with food Orally three times a day metFORMIN HCl 500 MG Tablet 1 tablet with a meal Orally twice a day Gabapentin 300 MG Capsule 1 capsule Orally twice a day Taking Multivitamin Adults 50+ - Tablet as directed Orally daily Taking oxyBUTYnin Chloride 5 MG Tablet TAKE 1 TABLET EVERY MORNING AND TAKE 2 TABLETS EVERY EVENING Taking Lisinopril 40 MG Tablet TAKE 1 TABLET BY MOUTH DAILY Orally Once a day Taking Metoprolol Tartrate 50 MG Tablet 1 tablet with food Orally three times a day Taking metFORMIN HCl 500 MG Tablet 1 tablet with a meal Orally twice a day Taking Gabapentin 300 MG Capsule 1 capsule Orally twice a day Not-Taking/PRNLasix 20 MG Tablet 1 tablet Orally Once a day Medication List reviewed and reconciled with the patientNot-Taking/PRN Lasix 20 MG Tablet 1 tablet Orally Once a day Medication List reviewed and reconciled with the patient * Allergies: W hole Egg (Diagnostic): Hives , Rash - AllergySulfacetamide: hives - AllergyyesAllergies Verified. Objective: * Vitals: T emp:98.2F, Wt:299.6lbs, Ht: 62.50 in, BMI:53.92Index, BP: 142/82 mm Hg,126/78mm Hg, HR:55/min, RR:20/min, Pain scale:81-10, Oxygen sat %:96%, Wt-k.9 kg, Ht- cm: 158.75 cm, Body Surface Area: 2.45. Asia Del Cid 04/20/2025 08:50:35 AM EST >. * Examination: ???General Examination: ???General appearance: alert, pleasant, well-nourished and in no acute distress. Head: normocephalic, atraumatic. Eyes: pupils equal, round, reactive to light and accommodation. Ears: auditory canal clear, tympanic membrane intact and clear bilaterally. Nose: nares patent , sinuses nontender bilaterally. Oral cavity: tongue is midline , palate normal , mucosa moist. Skin: skin is warm and dry, with no rashes, good skin turgor and normal hair distribution. Heart: regular rate and rhythm without murmurs, gallops, clicks or rubs. Lungs: clear to auscultation bilaterally, with good air movement and no rales, rhonchi or wheezes. Extremities: normal extremity with no clubbing, cyanosis or edema , full range of motion. Uses a walker Psych: alert and oriented x 3 , cooperative with exam , normal affect / mood , speech is clear and coherent. ???CQM Exceptions: ?Currently taking Aspirin:? Aspirin Use:?No??? Assessment: * Assessment: 1.?Well adult exam - Z00.00 (Primary)???2.?Screening for diabetes mellitus- Z13.1???3.?Overactive bladder - N32.81???4.?Colon cancer screening declined - Z53.20??? Plan: * Treatment: Notes: Patient presents to office today for their Medicare Annual Wellness Visit. Education was provided on healthy nutrition, including a diet rich in fruits and vegetables, minimizing simple carbohydrates, salt, and saturated fats. Encouraged regular cardiovascular exercise suchas walking at least 30 minutes daily, 5 times per week. Emphasized preventive health measures and educated pt on fall prevention and community-based lifestyle interventions to help reduce health risks and promote healthy living.???2.?Screening for diabetes mellitus?LAB: POCT A1C (Collection Date & Time - 04/20/2025 09:02 AM)?6.1* ?ValueReference Range?Result6.1H0-5.6 - % Notes: Pt has Prediabetes w/ an A1C of 6.1 Discussed risk of getting diagnosed w/ diabetes if unable to make lifestyle changes and modify riskfactors Pt encouraged to reduce carbohydrate, sugar, pop intake, prioritize protein, fruits and vegetables,and water intake. Pt also encouraged to exercise if able to reduce their risk. F/U 3 months & PRN???3.?Overactive bladder? Stop oxyBUTYnin Chloride Tablet, 5 MG, TAKE 1 TABLET EVERY MORNING AND TAKE 2 TABLETS EVERY EVENING;?Start Myrbetriq Tablet Extended Release 24 Hour, 25 MG, 1 tablet, Orally, Once a day, 30 days, 30, Refills 3.?? Notes: Insurance company would like to stop oxybutynin and recommended Myrbetriq if a safe alternative Patient would like to try to switch due to the cost of oxybutynin after the first of the year Stop oxybutynin and start myrbetriq??4.?Colon cancer screening declined? Notes: Educated on the importance of coloncancer screenings, patient verbalizes understanding and declines?? * Procedure Codes: 3 078F HTN DIAST BP < 399420P DM HG A1C < 24282U HTN SYST BP < 62400532 GLYCATED HEMOGLOBIN TEST, Modifiers: QW * Preventive Medicine: ??Your Annual Wellness Plan:?BMI, height, and weight:?The recommended frequency is:?annually ?Blood pressure:?The recommended frequency is:?every two years, if blood pressure </= 120/80 mm Hg, annually, if blood pressure >120-139/80-89 mm Hg ?Vision:?The recommended frequency is:?every three years up to age 40, every two years aged 40+ ?Abdominal aortic aneurysm:?The recommended frequency is:?once, between the age range of 65-75 and for those who have smoked 100+ cigarettes in lifetime ?Breast cancer screening (mammogram):?The recommended frequency is:?every two years, ages 50-74 ?Osteoporosis screening (bone density measurement):?The recommended frequency is:?routinely, for women ages 65+, routinely, for women ages 60-64 with risk factors ?Cholesterol testing:?The recommended frequency is:?regularly beginning at age 20 with risk factors ?Diabetes screening:?The recommended frequency is:?with a sustained blood pressure >/= 135/80 mm Hg ?Colorectal cancer screening:?The recommended frequency is:?annually, fecal occult blood stool (FOBS), every five years, sigmoidoscopy with FOBS, every 10 years, colonoscopy, every 3 years, Cologuard (DNA test) ?Sexually transmitted diseases (STDs):?The recommended frequency is:?as necessary for those with risk factors ?Depression screening:?The recommended frequency is:?as necessary for those with risk factors ?Alcohol misuse screening:?The recommended frequency is:?as necessary for those with risk factors ?Pneumococcal (Pneumonia) vaccine:?The recommended frequency is:?1-2 doses up to age 64, 1 dose age 65+ ?Influenza (Flu) vaccine:?The recommended frequency is:?annually ?Major risk factors?Your major risk factors include:?fall risk, obesity ?Recommendations for improvement ?The recommendations are:?diet, exercise ???This plan was discussed, printed, and handed to the patient. * Follow Up: 1 Year,prn (Reason: Medicare Wellness) Billing Information: * Visit Code: 89541 Pdic Compre Prev Med Ree/M Est Pt 65&>. * Procedure Codes: 3078F HTN DIAST BP < 80. 3044F DM HG A1C < 7. 3074F HTN SYST BP < 130. 47609 GLYCATED HEMOGLOBIN TEST. Modifiers: QW * ign off status: Completed true * Provider: Ritu Mckeon APRN, SCREEN CUTTER AND TRIMMER-C Date: 06/20/2024 Generated for Printing/Faxing/eTransmitting on:?04/24/2025 08:21 PM EST
[2025-04-24 18:55] VITALS: BP 140/73; PULSE 61; TEMP 36.7; O2SAT 98; BMI 52.3
--- NOTE | 2025-04-24 19:03 | XR_ITS ---
The [address] [address] Patient Name: MINGO PRIETO MRN: [id number] date: 1955 Sex: F Assigned Patient Location: ED.MAIN Current Patient Location: ED.MAIN Accession/Order Number: [id number] Exam Date: 04/24/2025 19:14 Report Date: 04/25/2025 09:37 At the request of: TITA GAO Procedure: XR pelvis 1-2V AP PELVIS: CLINICAL HISTORY: fall COMPARISON: None FINDINGS: Bones are grossly demineralized. Degenerative changes are seen involving the visualized lower lumbar spine the mass I joints and pubic symphysis. Mild degenerative changes involving the hips. No acute bony process. XR/XR pelvis 1-2V IMPRESSION: NO ACUTE BONY FINDINGS. Impression dictated by: Waqas Richards Jr., D.O. 04/25/2025 9:37 AM Dictation Location: [place] [address] Electronically authenticated by: [id number] Y Date: 04/25/2025 09:37
--- NOTE | 2025-04-24 19:03 | XR_ITS ---
The [address] [address] Patient Name: MINGO PRIETO MRN: [id number] date: 1955 Sex: F Assigned Patient Location: ED.MAIN Current Patient Location: ED.MAIN Accession/Order Number: [id number] Exam Date: 04/24/2025 19:14 Report Date: 04/25/2025 09:38 At the request of: TITA GAO Procedure: XR femur LT 2V LEFT FEMUR - 2 views: CLINICAL HISTORY: fall COMPARISON: None FINDINGS: Bones are grossly demineralized. No acute bony process. Visualized knee joint demonstrate degenerative change. XR/XR femur LT 2V IMPRESSION: NO ACUTE PROCESS. Impression dictated by: Waqas Richards Jr. DEloyOEloy 04/25/2025 9:38 AM Dictation Location: [place] [address] Electronically authenticated by: [id number] Y Date: 04/25/2025 09:38
--- NOTE | 2025-04-24 19:03 | XR_ITS ---
The [address] [address] Patient Name: MINGO PRIETO MRN: [id number] date: 1955 Sex: F Assigned Patient Location: ED.MAIN Current Patient Location: ED.MAIN Accession/Order Number: [id number] Exam Date: 04/24/2025 19:14 Report Date: 04/25/2025 09:39 At the request of: TITA GAO Procedure: XR tibia fibula LT 2V LEFT TIBIA AND FIBULA - - 2 views CLINICAL HISTORY: fall COMPARISON: None FINDINGS: Bones are grossly demineralized. Moderate Degenerative changes involving the left knee with medial weightbearing joint space narrowing. Ankle mortise demonstrates degenerative changes well. No acute bony process. XR/XR tibia fibula LT 2V IMPRESSION: DEGENERATIVE CHANGES WITHOUT ACUTE BONY PROCESS. Impression dictated by: Waqas Richards Jr., DEloyOEloy 04/25/2025 9:39 AM Dictation Location: [place] Electronically authenticated by: [id number] Y Date: 04/25/2025 09:39
--- NOTE | 2025-04-24 19:03 | XR_ITS ---
The [address] [address] Patient Name: MINGO PRIETO MRN: [id number] date: 1955 Sex: F Assigned Patient Location: ED.MAIN Current Patient Location: ED.MAIN Accession/Order Number: [id number] Exam Date: 04/24/2025 19:14 Report Date: 04/25/2025 09:33 At the request of: TITA GAO Procedure: XR knee LT 3V LEFT KNEE - 3 views CLINICAL HISTORY: fall COMPARISON: None FINDINGS: Bones are grossly demineralized. Severe degenerative changes with medial weightbearing joint space narrowing. No joint effusion. Calcified loose body. No acute bony process. XR/XR knee LT 3V IMPRESSION: SEVERE DEGENERATIVE CHANGES WITHOUT ACUTE BONY PROCESS. Impression dictated by: Waqas Richards Jr., D.OEloy 04/25/2025 9:33 AM Dictation Location: [place] [address] Electronically authenticated by: [id number] Y Date: 04/25/2025 09:33
--- NOTE | 2025-04-24 19:05 | ED.LOWEXI1 ---
Documented by User: [email or web address] Berman 04/24/25 22:08 HPI HPI - Extremity Injury (Lower) General Chief Complaint: Extremity Injury, Lower Stated Complaint: Lower Leg Pain Time Seen by Provider: 04/24/25 18:58 Source: patient Mode of arrival: ambulance Limitations: no limitations History of Present Illness HPI Narrative: Patient is a 69-year-old female presents to the emergency department for evaluation of pain in the left leg after a fall. Patient states that she was using her walker to go to the bathroom at home, she propped her walker against the sink and states that her leg gave out on her and she fell to the ground. She denies any preceding dizziness, chest pain or shortness of breath. She denies head injury, loss of consciousness. She states that she has been having issues with pain in the leg for approximately a year and states that she has had the leg give out on her twice previously. She complains of pain over the left knee and lower leg. She is not anticoagulated. She states that the leg was feeling numb, it is more painful now. She has been evaluated with her primary care but states nobody knows why the leg hurts. She takes gabapentin at home. EMS was called for lift assist and the patient requested transport for evaluation. Related Data Allergies Allergy/AdvReac Type Severity Reaction Status Date / Time egg Allergy Severe Hives Verified 04/24/25 18:55 Sulfa (Sulfonamide Allergy Severe Hives Verified 04/24/25 18:55 Antibiotics) Opioid HPI Opioid Management Most Recent Pain and Opioid Data: Last Pain Scale 8 Today, 20:35 Last ED Pain Assessment Today, 20:35 Last MAR Pain Assessment Today, 19:44 Review of Systems ROS Constitutional Denies: fever or chills Ears, nose, mouth, and throat Denies: throat pain or neck pain Respiratory Denies: shortness of breath or cough Gastrointestinal Denies: abdominal pain, nausea or vomiting Musculoskeletal Reports: extremity pain and limited range of motion; Denies: back pain, neck pain or extremity swelling Integumentary/Breast Denies: rash Neurological Reports: numbness in extremities and weakness in extremities; Denies: headache or dizziness Hematologic/Lymphatic Denies: easy bruising or easy bleeding PFSH PFSH Social History Little interest or pleasure in doing things: not at all Feeling down, depressed, or hopeless: not at all Exam Narrative Exam Narrative: General: Alert and in no distress HEENT: Atraumatic, normocephalic Neck: C-spine nontender Respiratory: No acute respiratory distress, speaks in full sentences Cardiac: Regular rate and rhythm Musculoskeletal: Diffuse tenderness of the left knee, left tib-fib. Minimal tenderness of the left hip. No obvious deformity, no erythema or swelling of the skin. No open wounds or drainage. No ecchymosis. No bony tenderness of the left foot. Normal flexion and extension of the toes of the left foot. Skin: Warm and dry Neuro: No focal neurodeficits. Psych: Normal mood and affect Constitutional Vital Signs, click to edit/add: Last Vital Signs Temp 98.1 F 04/24/25 18:55 Pulse 61 04/24/25 18:55 Resp 18 04/24/25 18:55 BP 140/73 04/24/25 18:55 Pulse Ox 98 04/24/25 18:55 O2 Del Method Room Air 04/24/25 18:55 Course Vital Signs Vital signs: Vital Signs Temperature 98.1 F 04/24/25 18:55 Pulse Rate 61 04/24/25 18:55 Respiratory Rate 18 04/24/25 18:55 Blood Pressure 140/73 04/24/25 18:55 Pulse Oximetry 98 04/24/25 18:55 Oxygen Delivery Method Room Air 04/24/25 18:55 Temperature 98.1 F 04/24/25 18:55 Pulse Rate 61 04/24/25 18:55 Respiratory Rate 18 04/24/25 18:55 Blood Pressure 140/73 04/24/25 18:55 Pulse Oximetry 98 04/24/25 18:55 Oxygen Delivery Method Room Air 04/24/25 18:55 MDM - Extremity Injury (Lower) MDM Narrative Medical decision making narrative: X-rays show the patient has significant arthritis in the left knee, no acute fracture or dislocation noted in the left tib-fib, left knee, pelvis and femur. CT of the lumbar spine is pending at this time. Patient was medicated for pain in the ER. She is hemodynamically stable with no focal neurodeficits. Case turned over to attending physician at [address] and [address] test. Medical Records Attestation: I reviewed the patient's medical records. Discharge Plan Discharge Chief Complaint: Extremity Injury, Lower Clinical Impression: Leg pain, left, Fall Patient Disposition: Home, Self-Care Time of Disposition Decision: 21:57 Condition: Good Print Language: [place]raini Instructions: Fall Prevention (ED), Leg Pain (ED) Additional Instructions: follow up with your doctor next week for recheck Referrals: LOUIE ADAM [Physician, Orthopedics] - 1 week NELY DAWSON [Physician, Internal Medicine] - 1 week Documented by User: Julio Babb MD 04/24/25 23:23 HPI HPI - Extremity Injury (Lower) General Chief Complaint: Extremity Injury, Lower Stated Complaint: Lower Leg Pain Time Seen by Provider: 04/24/25 18:58 Related Data Allergies Allergy/AdvReac Type Severity Reaction Status Date / Time egg Allergy Severe Hives Verified 04/24/25 18:55 Sulfa (Sulfonamide Allergy Severe Hives Verified 04/24/25 18:55 Antibiotics) Opioid HPI Opioid Management Most Recent Pain and Opioid Data: Last Pain Scale 8 Today, 20:35 Last ED Pain Assessment Today, 20:35 Last MAR Pain Assessment Today, 19:44 PFSH PFS Social History Little interest or pleasure in doing things: not at all Feeling down, depressed, or hopeless: not at all Exam Constitutional Vital Signs, click to edit/add: Last Vital Signs Temp 98.1 F 04/24/25 18:55 Pulse 61 04/24/25 18:55 Resp 18 04/24/25 18:55 BP 140/73 04/24/25 18:55 Pulse Ox 98 04/24/25 18:55 O2 Del Method Room Air 04/24/25 18:55 Course Vital Signs Vital signs: Vital Signs Temperature 98.1 F 04/24/25 18:55 Pulse Rate 61 04/24/25 18:55 Respiratory Rate 18 04/24/25 18:55 Blood Pressure 140/73 04/24/25 18:55 Pulse Oximetry 98 04/24/25 18:55 Oxygen Delivery Method Room Air 04/24/25 18:55 Temperature 98.1 F 04/24/25 18:55 Pulse Rate 61 04/24/25 18:55 Respiratory Rate 18 04/24/25 18:55 Blood Pressure 140/73 04/24/25 18:55 Pulse Oximetry 98 04/24/25 18:55 Oxygen Delivery Method Room Air 04/24/25 18:55 MDM - Extremity Injury (Lower) MDM Narrative Medical decision making narrative: X-rays show the patient has significant arthritis in the left knee, no acute fracture or dislocation noted in the left tib-fib, left knee, pelvis and femur. CT of the lumbar spine is pending at this time. Patient was medicated for pain in the ER. She is hemodynamically stable with no focal neurodeficits. Case turned over to attending physician at [address] test[address] CT lumbar spine returned without acute changes. 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 Patient able to ambulate with steady gait using the walker and discharged home in the care of her Discharge Plan Discharge Chief Complaint: Extremity Injury, Lower Clinical Impression: Leg pain, left, Fall Patient Disposition: Home, Self-Care Time of Disposition Decision: 21:57 Condition: Good Print Language: [place]raini Instructions: Fall Prevention (ED), Leg Pain (ED) Additional Instructions: follow up with your doctor next week for recheck Referrals: LOUIE ADAM [Physician, Orthopedics] - 1 week NELY DAWSON [Physician, Internal Medicine] - 1 week
[2025-04-24] MEDS: HYDROCODONE/ACET 5-325 MG TABLET 1 TAB PO (19:44)
--- OUTSIDE RECORDS SUMMARY | 2025-04-24 20:20 | XMS_ITS | CCD ---
Author Organization [facility] Inform ion Partnership [facility] Care Team Providers Care Housekeeping And Laundry Team Leader Name Role Phone BRY, DR SHU Stoll Attending Unavailable BRY, DR SHU Stoll Admitting Unavailable [facility] Primary Care Unava ilable BRY, DR SHU Stoll Consulting Unavailable ALPHONSE, DR SYLVIE Saba Consulting Unavailabl e DARVIN, DR MADDI Mary Consulting Unavailable URIAH, DR VERÓNICA Mccarthy Consulting Unavailable Magnolia, DR Nesbitt Consulting Unavailable SG, JHON Consulting Unavailable MARYSE Gonsales Primary Care Physician Unavail able [facility], Other Primary Care Provi kiran [facility], Other Primary Care Provi kiran Mohsen Cohen Unavailable NON STAFF Primary Care Provider UnavailMD Mohsen Moon Attending Provider [phone] Mohsen Cohen Admitting Unavailable Mohsen Cohen Attending Unavailable NON STAFF Primary Care Unavailable Mohsen Cohen Attending Unavailable NON STAFF Primary Care Unavailable Mohsen Cohen Admitting Unavailable YUE ALANIS I Attending Unavailable [facility] Referring Un available [facility] Primary Care Un available Unavailable Primary Care Provider Unavailgera e Orzech, Marsha X Admitting Unavailable Orzech, Marsha X Attending Unavailable Orzech, Marsha X Referring Unavailable Orzech Marsha X Attending Unavailable Allergies Allergy ClassificationReported Allergen(s)Allergy TypeDate of OnsetReaction(s) Facility (1 source)egg extractDrug AllergyThe [facility] (1 source)Sulfonamides (Antibiotic)Drug allergy (disorder)[facility] Repository (6 sources)egg yolk phospholipidsDrug Hmjliax12-15-5420AobvnVZGOhioHealth [facility] Work Phone: (6 sources)Sulfonamides (Antibiotic)Propensity to adverse reactions to drug 66-23-1650DrjtmULXOhioHealth [facility] (8 sources)Egg; Translations: [Eggs]Allergy to substancehivesExecutive [facility]rology of [facility] [place] (6 sources)Sulfonamides; Translations: [sulfonamides]Allergy to substanceUnknown [facility] (2 sources)Sulfacetamide / SulfurDrug AllergyhivesShawnee [facility] Other (2 sources)egg extract; Translations: [egg]Drug Zwbtost03-07-2892OzveIbbswdlsvGeorgetown Behavioral Hospital (2 sources)Sulfonamides (Antibiotic); Translations: [Sulfa (Sulfonamide Antibiotics)]Allergy to illziuxzz22-37-9904CbakUpazpkcycGeorgetown Behavioral Hospital (1 source)egg extractDrug Jckzvqb07-02-5788JgvyyygjoOur Lady Of Mercy Hospital Repository (1 source)SulfacetamideDrug Czcfkfq76-95-0483DpiecfkagOur Lady Of Mercy Hospital Repository (1 source)SulfurDrug Voqegnw40-44-5047PcvvkmdvjOur Lady Of Mercy Hospital Repository Medications Current Medications MedicationDrug Class(es)DatesSig (Normalized)Sig (Original)allopurinol 100 mg oral tablet (9 sources)Xanthine Oxidase InhibitorStart: 16-84-3278lksy 1 tablet by mouth once dailyallopurinol 100 mg Tab 100 mg = 1 tab(s), Oral, Daily, # 30 tab(s), Refills(s) 11, Pharmacy: [facility] [id number], 158, cm, 11/07/22 11:12:00 EDT, Height/Length Dosing, 130, kg, 11/07/22 11:12:00EDT, Weight Dosing Start Date: 11/07/22 Status: Orderedciprofloxacin 500 mg oral tablet (9 sources)Quinolone AntimicrobialStart: 83-05-9911xybfebrjeohhz 500 MG tablet 04/18/2022 Activedoxycycline hyclate 100 mg oral tablet (3 sources)Tetracycline-class DrugStart: 67-97-7556jvls 1 tablet by mouth twice dailydoxycycline hyclate 100 mg Tab 100 mg = 1 tab(s), Oral, BID, # 14 tab(s), Refills(s) 0, Pharmacy: [facility] [id number], 158, cm, 05/29/23 9:35:00 EST, Height/Length Dosing, 130, kg, 05/29/23 9:35:00 EST, Weight Dosing Start Date: 05/29/23 Status: Orderedglimepiride 2 mg oral tablet (14 sources)SulfonylureaStart: 41-31-6082bhaxbqukipp 2 mg Tab Refills(s) 0 Start Date: 04/23/22 Status: Orderedtake 1 tablet by mouth once daily in the morning gliMEPIride 1 MG Tab Take 1 tablet by mouth daily every morning. Active lisinopril 40 mg oral tablet (14 sources)Angiotensin Converting Enzyme InhibitorStart: 76-47-0789fdlmvmtpgz 40 mg Tab Refills(s) 0 Start Date: 04/23/22 Status: Orderedmegestrol acetate 40 mg oral tablet (13 sources)ProgestinStart: 04-97-0929oheolixyl 40 mg Tab 40 mg = 1 tab(s), Oral Start Date: 11/07/22 Status: OrderedStart: 05-24-2022 End: 31-41-3191phct 2 tablets by mouth twice dailymegestrol 40 MG tablet Indications: Endometrial cancer , Encounter for monitoring adjuvant hormonal therapy Take 2 tablets by mouth 2 times daily. 168 tablet 8 02/06/2023 Active Start: 55-39-4379dyvr 2 tablets by mouth twice dailymegestrol 40 MG tablet Indications: Endometrial cancer , Encounter for monitoring adjuvant hormonal therapy Take 2 tablets by mouth 2 times daily. 168 tablet 4 05/17/2021 Active metFORMIN hydrochloride 500 mg oral tablet (14 sources)BiguanideStart: 51-11-8967slwbmjwmc 500 mg Tab Refills(s) 0 Start Date: 04/23/22 Status: OrderedMetoprolol (14 sources)beta-Adrenergic BlockerStart: 11-12-9903Qgrhklnrjz tartrate 50 mg Tab Refills(s) 0 Start Date: 04/23/22 Status: Orderedtake 2 tablets by mouth twice daily, then take 2 tablets by mouth in the morning, then take 1 tablet by mouth in the eveningmetoprolol succinate 25 MG PO tablet XL Indications: Endometrial cancer , Fatigue , HTN (hypertension) , Obese Take 2 tablets by mouth 2 times daily. Taking 2 tabs in the morning and 1 tab in the evening. ActiveMetoprolol Tartrate 50 MG Oral for 90 Days Activetake 1 tablet by mouth twice daily in the eveningmetoprolol succinate 25 MG PO tablet XL Indications: Endometrial cancer , Fatigue , HTN (hypertension) , Obese Take 50 mg by mouth 2 times daily. Taking 2 tabs in the morning and 1 tab in the evening. 0 Active Multiple Vitamin (MULTI-VITAMIN PO) (6 sources)take 1 tablet by mouth once daily before breakfastMultiple Vitamin (MULTI-VITAMIN PO) take 1 Tab by mouth every morning before breakfast. Active take 1 tablet by mouth once daily before breakfastMultiple Vitamin (MULTI- VITAMIN PO) take 1 Tab by mouth every morning before breakfast. 0 ActiveNaproxen (6 sources)Nonsteroidal Anti-inflammatory DrugNaproxen Sodium (ALEVE PO) Take 2 tablets by mouth as needed. Reported on 09/11/2016 ActiveNaproxen Sodium (ALEVE PO) take 2 tablets by mouth as needed.. Reported on 09/11/2016 0 Jedwhi79 hr oxybutynin chloride 5 mg extended release oral tablet (14 sources)Cholinergic Muscarinic AntagonistStart: 82-66-9096tdsemshgcl 5 mg ER Tab Refills(s) 0 Start Date: 04/23/22 Status: Orderedtake 1 tablet by mouth three times dailyoxybutynin 5 MG Tab Take 1 tablet by mouth 3 times daily. Activetamoxifen 20 mg oral tablet (14 sources)Estrogen Agonist/AntagonistStart: 05-17-2021 End: 40-33-2374fakotmipa 20 MG tablet Indications: Endometrial cancer , Encounter for monitoring adjuvant hormonaltherapy TAKE ONE TABLET BY MOUTH TWICE A DAY, ALTERNATE BETWEEN THREE WEEKS ON, THREE WEEKS OFF WITH MEGACE 84 tablet 8 06/04/2023 Active Completed/Discontinued Medications MedicationDrug Class(es)DatesSig (Normalized)Sig (Original)F-18 Fluorodeoxyglucose (FDG) IVPB 9-14.3 millicurie (1 source)Start: 06-11-2022 End: 75-31-9001C-18 Fluorodeoxyglucose (FDG) IVPB 9-14.3 millicuriegadoterate Meglumine (DOTAREM) 5 MMOL/10ML injection 3-60 mL (1 source)Start: 07-06-2022 End: 95-59-7095hbqrpjwokz Meglumine (DOTAREM) 5 MMOL/10ML injection 3-60 mL10 ml sodium chloride 9 mg/ml injection (2 sources)Start: 07-06-2022 End: 42-47-4651Qslniy chloride (PF) 0.9 % injection 1-250 mLStart: 06-11-2022 End: 03-58-2416Aqyzbz chloride (PF) 0.9 % injection 10-100 mL Problems Active Problems Problem ClassificationProblemDateDocumented DateEpisodic/ChronicAcute and unspecified renal failure (1 source)Acute kidney failure, unspecified; Translations: [ACUTE KIDNEY FAILURE UNSPECIFIED]Onset: 09-78-5963UlnrjnjkKnowxqrhn infection; unspecified site (1 source)Unspecified Escherichia coli [E. coli] as the cause of diseases classified elsewhere; Translations:[UNS E COLI CAUSE DX CLASS ELSEWHERE]Onset: 89-69-0629NozmhwlwBapyqxyn of urinary tract (6 sources)Kidney stone; Translations: [Calculus of kidney]Onset: 11-07-2022 EpisodicCancer of ovary (5 sources)Malignant tumor of oumul49-03-7619RjqkshzVlzbpu of ovary (1 source)Personal history of malignant neoplasm of ovary; Translations: [PERSONAL HX MALIG NEOPLASM OVARY]Onset: 57-90-6070OvsaqkviBtydko of uterus (13 sources)Malignant neoplasm of endometrium of corpus uteri ; Translations: [Malignant neoplasm of endometrium]Onset: 75-55-3516WsubwngSvekqjxiuk and other anemia (1 source)Anemia, unspecified; Translations: [ANEMIA UNSPECIFIED]Onset: 09-34-4791UpbwaldzJrnluwot mellitus without complication (6 sources)Type 2 diabetes mellitus without complications; Translations: [Diabetes mellitus]Onset: 883558-40-3712BuxngekFrohernbc hypertension (12 sources)Essential (primary) hypertension; Translations: [Hypertensive disorder]Onset: 603098-06-1857QjwipjwJhhbe of unknown origin (1 source)Fever, unspecified; Translations: [FEVER UNSPECIFIED]Onset: 04-23-2022 EpisodicOther aftercare (1 source)watermelon harvesting supervisor (current) use of oral hypoglycemic drugs; Translations: [RESIDENTIAL USE ORAL HYPOGLYCEMIC DX]Onset: 77-32-6578BuexykjePibde aftercare (3 sources)Other half-way (current) drug therapy; Translations: [OTH RESIDENTIAL CURRENT DRUG THERAPY]Onset: 12-63-3817MoxhhubxPpayt aftercare (2 sources)Encounter for therapeutic drug level monitoring; Translations: [Encounter for therapeutic drug level monitoring]Onset: 68-72-7217KlwhqqfhQmmdk aftercare (1 source)Long-term current use of drug therapy; Translations: [Encounter for therapeutic drug level monitoring]06-20-7520JygwzdvwGjkdb bone disease and musculoskeletal deformities (1 source)Disorder of bone, unspecified; Translations: [Disorder of bone and cartilage, unspecified]EpisodicOther gastrointestinal disorders (1 source)Intra-abdominal and pelvic swelling, mass and lump, unspecified site; Translations: [INTRA-ABD PELVSWELL MASS LUMP]Onset: 58-69-2384GxerwozjDsger liver diseases (4 sources)Unspecified cirrhosis of liver; Translations: [Cirrhotic]Onset: 36-61-6825RsbqnjqBpyrx liver diseases (1 source)Fatty (change of) liver, not elsewhere classified; Translations: [Fatty (change of) liver, not elsewhere classified]Onset: 57-43-3386ImrrvqgYoitc nutritional; endocrine; and metabolic disorders (1 source)Other disorders of glycoprotein metabolism; Translations: [OTH D/O OF GLYCOPROTEIN METABOLISM]Onset: 56-50-5764LnnqgadOwfzx nutritional; endocrine; and metabolic disorders (6 sources)Morbid obesity; Translations: [Morbid (severe) obesity due to excess calories]Onset: 476186-59-3053RnqntzxQyace screening for suspected conditions (not mental disorders or infectious disease) (1 source)Other specified abnormal findings of blood chemistry; Translations: [OTH SPEC ABNORMAL FINDINGS BLDCHEM]Onset: 99-99-9099DhombxruMghjinvivabl (2 sources)LOW BACK PAIN, UNSPECIFIED; Translations: [LOW BACK PAIN, UNSPECIFIED]Onset: 57-54-5773Vjljnexlisys (1 source)CONTACT W/AND (SUSP) EXPOS COVID-19; Translations: [CONTACT W/AND (SUSP) EXPOS COVID-19]Onset: 87-53-1057Nzizijg tract infections (4 sources)Pyonephrosis; Translations: [Urinary tract infectious disease]Onset: 001575-65-3925Moxeuopz Past or Other Problems Problem ClassificationProblemDateDocumented DateEpisodic/ChronicMalaise and fatigue (6 sources)Fatigue; Translations: [Other fatigue]Onset: EpisodicMood disorders (6 sources)Mood disordersOnset: 05-01-2022 Resolved: 076437-42-3146Nihkdyu (6 sources)Candidal vulvovaginitis; Translations: [Yeast infection involving the vagina and surrounding area]Onset: 08-19-2012 Resolved: 077260-33-0788HbpwmnawBsbpr gastrointestinal disorders (5 sources)Pelvic mass; Translations: [Intra-abdominal and pelvic swelling, mass and lump, unspecified site]Onset: 70-41-2351WjzmhlfqUpnoe lower respiratory disease (6 sources)Dyspnea on exertion; Translations: [Other forms of dyspnea]Onset: 635534-94-3833SqcyauvgFmiko non-traumatic joint disorders (6 sources)Hip pain; Translations: [Pain in unspecified hip]Onset: 06-16-2013 24-13-3909TiyepsaoAhlshnzr codes; unclassified (6 sources)Bilateral lower limb edema; Translations: [Localized edema]Onset: 560026-27-6543KpsdfbprJywnzckmucak (1 source)LOW BACK PAIN, UNSPECIFIED; Translations: [LOW BACK PAIN, UNSPECIFIED] Onset: 91-00-4987Ijrtxxgwplwp (5 sources)Onset: 05-01-2022 Resolved: Results Test NameValueInterpretationReference RangeFacilityReminderson 03-02-2025 RemindersReminders From: Stefani Chavira To: EU - Administrative; Sent: 08/21/2024 13:31:32 EDT Show up: 08/21/2024 13:31:00 EDT Subject: 1 yr f/u w/ Ao w/ VARUN Reminder/Recall Pt seen on 08/21/2024 in [place] W/ AO. Pt needs to be seen by 08/21/2025 w/ AO w/ VARUN. Schedule isn't built out that far. Left VM asking PT to call back and schedule August 2025.[facility] HospitalAmbulatory Visit Summaryon 72-78-0799Qwsigcuegr Visit Summary Ambulatory Visit Summary JULITA SILVA :1955 Visit Date:04/18/2022 Ambulatory Visit Instructions Your Diagnosis Kidney stone Tests Performed XR Abdomen 1 View -- Results Pending -- Please visit your patient portal for your results or contact your primary care physician. This Is Your Medications List celecoxib (celecoxib 200 mg Cap) furosemide (furosemide 20 mg Tab) glimepiride (glimepiride 2 mg Tab) lisinopril (lisinopril 40 mg Tab) megestrol (megestrol 40 mg Tab) metformin (metformin 500 mg Tab) metoprolol (Metoprolol tartrate 50 mg Tab) oxybutynin (oxybutynin 5 mg ER Tab) potassium chloride (Potassium Chloride (Kpz-Jnmx-Sib M10) 10 mEq oral tablet, extended release) tamoxifen (tamoxifen 20 mg Tab) Procedures Performed Robot assisted laparoscopic total hysterectomy (2010). What to do next You Need to Complete the Following US Renal, 04/03/24, Routine, Order for future visit, Transport Mode: Ambulatory, Reason: Other (please specify), Reason: Kidney stones, No, Kidney stone, pp_set_radiology_subspecialty, Not Required, Del Cid - Wake US Renal, 08/21/24, Routine, Order for future visit, Transport Mode: Ambulatory, Reason: Other (please specify), Reason: kidneystones, No, Kidney stone, pp_set_radiology_subspecialty, Not Required, Del Cid - [place] Medications What How Much When Instructions Unchanged celecoxib (celecoxib 200 mg Cap) Unchanged furosemide (furosemide 20 mg Tab) Unchanged glimepiride (glimepiride 2 mg Tab) Unchanged lisinopril (lisinopril 40 mg Tab) Unchanged megestrol (megestrol 40 mg Tab) 1 Tablets By Mouth Unchanged metformin (metformin 500 mg Tab) Unchanged metoprolol (Metoprolol tartrate 50 mg Tab) Unchanged oxybutynin (oxybutynin 5 mg ER Tab) Unchanged potassium chloride (Potassium Chloride (Ddj-Bmdk-Tli M10) 10 mEq oral tablet, extended release) Unchanged tamoxifen (tamoxifen 20 mg Tab) Allergies Eggs (Unknown) sulfonamides (Unknown) Problems Ongoing - Any problem that you are currently receiving treatment for. Diabetes Hypertension Kidney stone Nocturia Ovarian cancer Renal cyst Urinary tract infection Patient Survey You may receive a survey via text or e-mail asking about your office visit. Please share your experience with us by completing your survey. We appreciate your feedback and thank you for choosing us for your care. [facility] HospitalReminderson 11-16-6275Ypmnfeeai Reminders From: SANGEETA Summers APRN, [place] X To: VIANCA Summers; Sent: 08/21/2024 13:29:59 EDT Show up: 05/23/2025 12:29:00 EST Subject: Reminder Message 1yr VARUN Reminder Message 1 yr VARUN for kidney stones. Order placed today.[facility]rology Office/Clinic Noteon [id number] Office/Clinic NoteUrology Office/Clinic Note Chief Complaint 1 yr fu HPI Staff 68 year old female here for 13 month follow up with VARUN Previous Dx: Kidney stone, renal cyst, uti patient denies any dysuria or gross hematuria. Frequency 2-3hrs. Nocturia 4x. states she only has incontinence at night pcp started her on oxybutynin 5mg on saturday and she states she has noticed an improvement with frequency during the night. History of Present Illness Tests reviewed: UA & VARUN I have reviewed the previous health record information and history for this patient from Dr. Callaway. I have reviewed and verified the staff HPI to be accurate for this encounter. Review of Systems PHQ Score Initial Depression Screen Score: 0 SCORE ROS - Provider Constitutional: denies weight loss, denies hot flashes. Eyes: denies eye problems. Gastrointestinal: denies nausea, denies vomiting. Cardiovascular: denies chest pain or angina. Integumentary: no dryness Musculoskeletal: denies musculoskeletal symptoms. ENMT: denies otolaryngeal symptoms. Respiratory: no shortness of breath. Heme/Lymph: denies easy bleeding tendency, denies easy bruising tendency. Psychiatric: no confusion, no anxiety. Genitourinary: See HPI. Physical Exam Vitals & Measurements HR: 56(Peripheral) RR: 16 BP: 114/68 HT: 158 cm HT: 62 in WT: 286.601 lb WT: 130 kg BMI: 52.07 General Appearance: alert, no distress, well nourished, well developed female. Assessment/Plan Julita 68 year old female here for 13 month follow up with VARUN BBSQ: 13 1. Kidney stone (N20.0: Calculus of kidney) S/p Cysto w/ right stent removal 05/07/2022. Stone analysis 04/16/2022 showed 100% uric acid. KUB 11/05/2022 - 6mm calculus of right renal region and probable right nephrolithiasis. Explained to pt at that time that uric acid stones do not typically appear on KUB, unsuspected of KUB to be renal calculus. [facility] 06/04/23 [facility] [place] - simple cyst right kidney cortical cyst lower pole. No calculi, hydronephrosis, cortical thinning VARUN 08/12/24 FT - exophytic cortical cyst lower pole right kidney. No calculi, hydronephrosis, cortical thinning, cystic/solid lesions bilaterally. No UA sample provided IO today d/t to mobility. Denies any dysuria or gross hematuria. No longer taking Allopurinol 100 mg daily. Shares she was suppose to get a refill and did not, discussed restarting the Allopurinol 100 mg daily. However, given no new stones in the last year she hasbeen off of it, we discussed staying off of medication. This is what pt prefers. We did discuss that if pt starts to get significant stones again, we may need to consider medication again. Discussed dietary modifications. -Void maneuvers. -Increase water intake. -Avoid bladder irritants. -Elevate legs for swelling. -Cont to restrict fluids before bedtime. -VARUN Ordered ([facility]) -Stop allopurinol per pt preference Follow up 1yr w VARUN or sooner if needed. Pt understands and agrees with plan. 2. Urinary tract infection (N39.0: Urinary tract infection, site not specified) No UA sample provided IO today d/t to mobility. Denies any dysuria or gross hematuria. Denies any recent infections at this time. -ER if pt becomes febrile, has chills, severe pain 3. Renal cyst (N28.1: Cyst of kidney, acquired) [facility] 11/16/22 shows a 3.2 cm cyst in the lower pole of the right kidney. [facility] 06/04/23 [facility] [place] - simple cyst right kidney cortical cyst lower pole. No calculi, hydronephrosis, cortical thinning [facility] 08/12/24 [facility] [place] [facility] - exophytic cortical cyst lower pole right kidney. No calculi, hydronephrosis, cortical thinning, cystic/solid lesions bilaterally. -Follow up is not required for simple cysts 4. Nocturia (R35.1: Nocturia) Pt states she only has incontinence at night PCP started her on oxybutynin 5mg on Saturday08/17/24. She has noticed an improvement with frequency during the night. She fluid restricts 2 hrs prior to bedtime does admit to LE edema in the evenings. Discussed elevating BLE earlier in the evening to help w/ nocturia -Cont Oxybutynin 5mg per PCP Follow-up With When Contact Information SANGEETA Summers APRN, Marsha Ford, MARYANNE, URL Additional Instructions: Follow up 1 yr w [facility] Patient Education Kidney Stones, Tbom-ik-Nnng Chetna Sanabria, personally scribed for SANGEETA Aldana APRN on 08/21/2024 13:33:52. . Documentation recorded by the antelmo Busby accurately reflects the services(s) I performed and decisions made by me. Authenticated by Marsha Summers APRN, FNP-C on 08/21/2024 13:44:55. Problem List/Past Medical History Ongoing Diabetes Hypertension Kidney stone Nocturia Ovarian cancer Renal cyst Urinary tract infection Historical No qualifying data Procedure/Surgical History Robot assisted laparoscopic total hysterectomy (2010). Medications celecoxib 200 mg Cap furosemide 20 mg Tab glimepiride 2 mg Tab lisinopril 40 mg Tab megestrol 40 mg (more content not included)...[facility] Comment on above:Result Comment: Electronically Signed By: SANGEETA Summers APRN, Marsha Ford\.br\Date and Time Signed: 08/21/24 13:45 EDT\.br\Electronically Co- Signed By: Chetna Busby\.br\Date and Time Co-Signed: 08/21/24 13:34 EDTUS Renalon [id number] RenalExam Date/Time: 08/12/2024 09:23 EDT Reason for Exam: N20.0;Other (please specify) Report IMPRESSION: Right lower pole renal cortical cyst. CLINICAL HISTORY: N20.0. COMPARISON: NONE. COMMENT: Right kidney measures 12.0 x 5.5 x 5.5 cm. Left kidney measures 10.5 x 5.7 x 5.9 cm. Both kidneys normal in size, shape, echogenicity, color flow. 3.8 x 3.2 x 2.8 cm exophytic cortical cyst lower pole right kidney. No calculi, hydronephrosis, cortical thinning, cystic/solid lesions bilaterally. Ordering Provider: Marsha Summers FINAL REPORT Dictated: 08/12/2024 11:22 am Damian Rivero MD Signed (Electronic Signature): 08/12/2024 11:22 am Signed by: Damian Rivero MD Transcribed by: ALVIN Technologist: [facility] HospitalURINE CULTURE, ROUTINEon [id number] identified Cx Nom (U) Urine Culture, Routine [facility] HealthcareBacteria identified Cx Nom (U)Culture shows less than 10,000 colony forming units of bacteria perNOMS HealthcareBacteria identified Cx Nom (U)milliliter of urine. This colony count is not generally consideredNOMS HealthcareBacteria identified Cx Nom (U)to be clinically significant.[facility] HealthcareBacteria identified Cx Nom (U)Performed at: - [facility] HealthcareBacteria identified Cx Nom (U)[address], [place] [id number] [facility] HealthcareBacteria identified Cx Nom (U)Stiff Leg Derrick Operator: Bob Ramos PhD, Phone: [phone] Memorial HospitalCLINISYNFormerly [facility] with Reflexon [id number] with ReflexNegativeNormalNegativeOur Lady Of Mercy Hospital Comment on above:Order Comment: Reason for Exam CirrhosisResult Comment: Performed at: [facility] [address], [place] [id number] Stiff Leg Derrick Operator: Bob Ramos PhD, Phone: [phone] By: #### HCV RX PCR, HBCAB, ALPHA PHEN, SMAB, HBSAG, CERULOP, SEAN CHOICE, HBSAB #### [facility] , #### PT, HEPATIC, LIPID, JEREMY, CBC, FE and TIBC #### [facility] [address]Actin smooth muscle IgG Ab [Units/volume] in SerumOrdered By: Mohsen Cohen on 80-53-0285Mbvyl smooth muscle IgG Qn (S)6 Units0-19 [facility] HospitalComment on above:Negative 0 - 19 Weak positive 20 - 30 Moderate to strong positive >30 Actin Antibodies are foundin 52-85% of patients with autoimmune hepatitis or chronic active hepatitis and in 22% of patients with primary biliary cirrhosis.Performed at: [facility] [address] [id number] Director: Bob Ramos PhD, Phone: [phone] aminotransferase [Enzymatic activity/volume] in Serum or PlasmaOrdered By: Mohsen Cohen on [id number] [Catalytic activity/Vol]22 U/L 7-52[facility] HospitalAlbumin [Mass/volume] in Serum or Plasma by Bromocresol green (BCG) dye binding methoOrdered By: Mohsen Cohen on 31-05-1692Ccmxwog BCG dye [Mass/Vol]3.4 g/dL3.5-5.7FOhioHealth Van Wert HospitalAlkaline phosphatase [Enzymatic activity/volume] in Serum or PlasmaOrdered By: Mohsen Cohen on 12-55-3507PHT [Catalytic activity/Vol]53 U/C44-273PcldwhzfyOur Lady Of Mercy HospitalAlpha-1-Antitrypsin Phenotypeon 15-34-5498Ckyag 1 Anti-Etadxgz639 mg/qNHgpmje597-184BljjbhvxaOur Lady Of Mercy HospitalComment on above:Order Comment: Reason for Exam CirrhosisPerformed By: #### HCV RX PCR, HBCAB, ALPHA PHEN, SMAB, HBSAG, CERULOP, SEAN CHOICE, HBSAB #### [facility] , #### PT, HEPATIC, LIPID, JEREMY, CBC, FE and TIBC #### [facility] [address] [place] [address] USAPhenotype (P1)MMNormal.[facility] Comment on above:Order Comment: Reason for Exam CirrhosisResult Comment: Phenotype Population A-1-AT Concentration* Incidence % % of MM (Typical Range) MM 86.5% 100% (96 - 189) MS 8.0% 86% (83 - 161) MZ 3.9% 61% (60 - 111) FM 0.4% 100% (93 - 191) SZ 0.3% 41% (42 - 75) SS 0.1% 64% (62 - 119) ZZ 0.05% 19% (16 - 38) FS 0.05% 70% (70 - 128) FZ Unknown 46% (44 - 88) FF Unknown Unknown *A-1-AT concentration in the homozygous MM phenotype is taken as the reference normal. Percent deficiency in each phenotype is reported relative to this reference. Ranges used to confirm phenotype. Performed at: [address] [id number] Stiff Leg Derrick Operator: Bob Ramos PhD, Phone: [phone] Performed at: [facility] [id number] Stiff Leg Derrick Operator: Tim Boyd MD, Phone: [phone] By: #### HCV RX PCR, HBCAB, ALPHA PHEN, SMAB, HBSAG, CERULOP, SEAN CHOICE, HBSAB #### [facility] , #### PT, HEPATIC, LIPID, JEREMY, CBC, FE and TIBC #### [facility] [address] [place] [address] USAAspartate aminotransferase [Enzymatic activity/volume] in Serum or PlasmaOrdered By: Mohsen Cohen on 13-66-4833NBB [Catalytic activity/Vol]20 U/Y82-88EtwndbvtiOur Lady Of Mercy HospitalBasophils Auto (Bld) [#/Vol]Ordered By: Mohsen Cohen on 76-15-6922Jogoaewfm (Bld) [#/Vol]0.0 10*3/uL 0.0-0.2FOhioHealth Van Wert HospitalBasophils/100 WBC Auto (Bld)Ordered By: Mohsen Cohen on 96-10-0580Uinnnugpc/100 WBC (Bld)0.2 %.Our Lady Of Mercy HospitalBilirubin.direct [Mass/volume] in Serum or PlasmaOrdered By: Mohsen Cohen on 11-79-0457Vwrwvthth.direct [Mass/Vol]0.10 mg/dL0.03-0.18 [facility] Mercy HospitalBilirubin.total [Mass/volume] in Serum or PlasmaOrdered By: Mohsen Cohen on 24-74-6917Qplyebcbs [Mass/Vol]0.6 mg/dL 0.3-1.0Our [facility] Mercy HospitalCeruloplasminon 81-53-7760Vdnoczoyztpgs 38.9 mg/dEPirgkt16.0-39.0[facility] Mer[facility] HospitalComment on above:Order Comment: Reason for Exam CirrhosisResult Comment: Performed at: - [facility] [address] [id number] Stiff Leg Derrick Operator: Bob Ramos PhD, Phone: [phone] PERFORMED BY: [place] [address] PATHOLOGIST BUMPER OPERATOR WARREN PIERCE M.D.Performed By: #### HCV RX PCR, HBCAB, ALPHA PHEN, SMAB, HBSAG, CERULOP, SEAN CHOICE, HBSAB #### [facility] , #### PT, HEPATIC, LIPID, JEREMY, CBC, FE and TIBC #### [place] [address] USACholesterol [Mass/volume] in Serum or PlasmaOrdered By: Mohsen Cohen on 99-84-3718Edgoszdddhl [Mass/Vol]116 mg/xC888-990NgcafhhteOur Lady Of Mercy HospitalComment on above:Chol less than 200 mg/dl low riskChol 201-239 mg/dl borderline riskChol 240 mg/dl and greater high riskCholesterol in LDL Calc [Mass/Vol]Ordered By: Mohsen Cohen on 06-62-8234Fvkqrmhlgtv in LDL [Mass/Vol]57 mg/dL0-100Our [facility] Of Mercy HospitalComment on above:LDL ATP III CLASSIFICATIONLDL less than 100 mg/dL OptimalLDL 100-129 mg/dL Near or above otlijveTZV726-984 mg/dL Borderline highLDL 160-189 mg/dL HighLDL greater than 189 mg/dL Very highCholesterol in VLDL Calc [Mass/Vol]Ordered By: Mohsen Cohen on 26-46-9042Thmofqpyjjm in VLDL [Mass/Vol]23 mg/dLOur Lady Of Mercy HospitalComplete Blood Count Auto Diffon 93-67-4597Ncvdbpuxh (Bld) [#/Vol] 0.0 10*3/uLNormal0.0-0.2FOhioHealth Van Wert HospitalComment on above:Order Comment: Reason for Exam CirrhosisResult Comment: PERFORMED BY: [place] [address] PATHOLOGIST BUMPER OPERATOR WARREN PIERCE M.D.Performed By: #### HCV RX PCR, HBCAB, ALPHA PHEN, SMAB, HBSAG, CERULOP, SEAN CHOICE, HBSAB #### [facility] , #### PT, HEPATIC, LIPID, JEREMY, CBC, FE and TIBC #### [facility] [address] [place] [id number] USABasophils/100 WBC (Bld)0.2 %Normal.[facility] Mercy HospitalComment on above:Order Comment: Reason for Exam CirrhosisPerformed By: #### HCV RX PCR, HBCAB, ALPHA PHEN, SMAB, HBSAG, CERULOP, SEAN CHOICE, HBSAB #### [facility] , #### PT, HEPATIC, LIPID, JEREMY, CBC, FE and TIBC #### [facility] [address] [place] [address] USAEosinophils (Bld) [#/Vol]0.1 10*3/uLNormal0.0-0.45 [facility] HospitalComment on above:Order Comment: Reason for Exam CirrhosisPerformed By: #### HCV RX PCR, HBCAB, ALPHA PHEN, SMAB, HBSAG, CERULOP, SEAN CHOICE, HBSAB #### [facility] , #### PT, HEPATIC, LIPID, JEREMY, CBC, FE and TIBC #### [facility] [address] [place] [address] USAEosinophils/100 WBC (Bld)1.7 %Normal.[facility] Mercy HospitalComment on above:Order Comment: Reason for Exam CirrhosisPerformed By: #### HCV RX PCR, HBCAB, ALPHA PHEN, SMAB, HBSAG, CERULOP, SEAN CHOICE, HBSAB #### [facility] , #### PT, HEPATIC, LIPID, JEREMY, CBC, FE and TIBC #### [facility] [address] [place] [id number] USAErythrocyte distribution width (RBC) [Ratio]13.4 %Normal 11.9-15.3FOhioHealth Van Wert HospitalComment on above:Order Comment: Reason for Exam CirrhosisPerformed By: #### HCV RX PCR, HBCAB, ALPHA PHEN, SMAB, HBSAG, CERULOP, SEAN CHOICE, HBSAB #### [facility] , #### PT, HEPATIC, LIPID, JEREMY, CBC, FE and TIBC #### [facility] [address] [place] [id number] USAHematocrit (Bld) [Volume fraction]32.3 %Low34.0-46.4 [facility] Mer[facility] HospitalComment on above:Order Comment: Reason for Exam CirrhosisPerformed By: #### HCV RX PCR, HBCAB, ALPHA PHEN, SMAB, HBSAG, CERULOP, SEAN CHOICE, HBSAB #### [facility] , #### PT, HEPATIC, LIPID, JEREMY, CBC, FE and TIBC #### [facility] [address] [place] [address] USAHemoglobin (Bld) [Mass/Vol]11.0 g/dLLow11.8-15.4FOhioHealth Van Wert HospitalComment on above:Order Comment: Reason for Exam Cirrhosis Performed By: #### HCV RX PCR, HBCAB, ALPHA PHEN, SMAB, HBSAG, CERULOP, SEAN CHOICE, HBSAB #### [facility] , #### PT, HEPATIC, LIPID, JEREMY, CBC, FE and TIBC #### [place] [address] USALymphocytes (Bld) [#/Vol]0.7 10*3/uLLow1.00-4.8Our [facility] Mer[facility] HospitalComment on above:Order Comment: Reason for Exam Cirrhosis Performed By: #### HCV RX PCR, HBCAB, ALPHA PHEN, SMAB, HBSAG, CERULOP, SEAN CHOICE, HBSAB #### [facility] , #### PT, HEPATIC, LIPID, JEREMY, CBC, FE and TIBC #### [place] [id number] USALymphocytes/100 WBC (Bld)13.9 %Normal.[facility] Mercy HospitalComment on above:Order Comment: Reason for Exam CirrhosisPerformed By: #### HCV RX PCR, HBCAB, ALPHA PHEN, SMAB, HBSAG, CERULOP, SEAN CHOICE, HBSAB #### [facility] , #### PT, HEPATIC, LIPID, JEREMY, CBC, FE and TIBC #### [address] Sanchez [address]H (RBC) [Entitic mass]34.2 ulLdgqib22.7-34.3FOhioHealth Van Wert HospitalComment on above:Order Comment: Reason for Exam Cirrhosis Performed By: #### HCV RX PCR, HBCAB, ALPHA PHEN, SMAB, HBSAG, CERULOP, SEAN CHOICE, HBSAB #### [facility] , #### PT, HEPATIC, LIPID, JEREMY, CBC, FE and TIBC #### [facility] [address] [place], [place] [address] USAV (RBC) [Entitic vol]100.1 xOXqro04-672LwfpaamacOur Lady Of Mercy HospitalComment on above:Order Comment: Reason for Exam Cirrhosis Performed By: #### HCV RX PCR, HBCAB, ALPHA PHEN, SMAB, HBSAG, CERULOP, SEAN CHOICE, HBSAB #### [facility] , #### PT, HEPATIC, LIPID, JEREMY, CBC, FE and TIBC #### [facility] [address] [place] [address] USAMean Corpuscular HGB Conc34.2 g/oDKdrvok30.0-35.0[facility] Mer[facility] HospitalComment on above:Order Comment: Reason for Exam Cirrhosis Performed By: #### HCV RX PCR, HBCAB, ALPHA PHEN, SMAB, HBSAG, CERULOP, SEAN CHOICE, HBSAB #### [facility] , #### PT, HEPATIC, LIPID, JEREMY, CBC, FE and TIBC #### [place] [address] USAMonocytes (Bld) [#/Vol]0.4 10*3/uLNormal0.0-0.8[facility] HospitalComascension borgess allegan hospital on above:Order Comment: Reason for Exam Cirrhosis Performed By: #### HCV RX PCR, HBCAB, ALPHA PHEN, SMAB, HBSAG, CERULOP, SEAN CHOICE, HBSAB #### [facility] , #### PT, HEPATIC, LIPID, JEREMY, CBC, FE and TIBC #### [place] [address] USAMonocytes/100 WBC (Bld)7.1 %Normal.[facility] Mer[facility] HospitalComment on above:Order Comment: Reason for Exam CirrhosisPerformed By: #### HCV RX PCR, HBCAB, ALPHA PHEN, SMAB, HBSAG, CERULOP, SEAN CHOICE, HBSAB #### [facility] , #### PT, HEPATIC, LIPID, JEREMY, CBC, FE and TIBC #### [facility] [address] [place] [address] USANeutrophils (Bld) [#/Vol]4.0 10*3/uLNormal1.8-7.7FOhioHealth Van Wert HospitalComment on above:Order Comment: Reason for Exam CirrhosisPerformed By: #### HCV RX PCR, HBCAB, ALPHA PHEN, SMAB, HBSAG, CERULOP, SEAN CHOICE, HBSAB #### [facility] , #### PT, HEPATIC, LIPID, JEREMY, CBC, FE and TIBC #### [facility] [address] [place] [address] USANeutrophils/100 WBC (Bld)77.1 %Normal.[facility] HospitalComment on above:Order Comment: Reason for Exam CirrhosisPerformed By: #### HCV RX PCR, HBCAB, ALPHA PHEN, SMAB, HBSAG, CERULOP, SEAN CHOICE, HBSAB #### [facility] , #### PT, HEPATIC, LIPID, JEREMY, CBC, FE and TIBC #### [facility] [address] [place] [address] USANRBC%0.1 /100{WBC}Normal0-0.5FOhioHealth Van Wert HospitalComment on above:Order Comment: Reason for Exam CirrhosisPerformed By: #### HCV RX PCR, HBCAB, ALPHA PHEN, SMAB, HBSAG, CERULOP, SEAN CHOICE, HBSAB #### [facility] , #### PT, HEPATIC, LIPID, JEREMY, CBC, FE and TIBC #### [facility] [address] [place] [address] USAPlatelet mean volume (Bld) [Entitic vol]8.5 fLNormal 6.3-10.7FOhioHealth Van Wert HospitalComment on above:Order Comment: Reason for Exam CirrhosisPerformed By: #### HCV RX PCR, HBCAB, ALPHA PHEN, SMAB, HBSAG, CERULOP, SEAN CHOICE, HBSAB #### [facility] , #### PT, HEPATIC, LIPID, JEREMY, CBC, FE and TIBC #### [facility] [address] [place] [address] USAPlatelets (Bld) [#/Vol]147 10*3/xWNeo833-477UjkppqrtsOur Lady Of Mercy HospitalComment on above:Order Comment: Reason for Exam Cirrhosis Performed By: #### HCV RX PCR, HBCAB, ALPHA PHEN, SMAB, HBSAG, CERULOP, SEAN CHOICE, HBSAB #### [facility] , #### PT, HEPATIC, LIPID, JEREMY, CBC, FE and TIBC #### [place] [id number] USARBC (Bld) [#/Vol]3.23 10*6/uLLow3.60-5.00[facility] HospitalComascension borg[facility] allegan hospital on above:Order Comment: Reason for Exam Cirrhosis Performed By: #### HCV RX PCR, HBCAB, ALPHA PHEN, SMAB, HBSAG, CERULOP, SEAN CHOICE, HBSAB #### [facility] , #### PT, HEPATIC, LIPID, JEREMY, CBC, FE and TIBC #### [place] [address] USAWBC (Bld) [#/Vol]5.2 10*3/uLNormal3.8-11.6FOhioHealth Van Wert HospitalComment on above:Order Comment: Reason for Exam Cirrhosis Performed By: #### HCV RX PCR, HBCAB, ALPHA PHEN, SMAB, HBSAG, CERULOP, SEAN CHOICE, HBSAB #### [facility] , #### PT, HEPATIC, LIPID, JEREMY, CBC, FE and TIBC #### [place] [id number] USAEosinophils Auto (Bld) [#/Vol]Ordered By: Mohsen Cohen on 74-64-4945Eqnqhfizwqo (Bld) [#/Vol]0.1 10*3/uL0.0-0.45[facility] HospitalEosinophils/100 WBC Auto (Bld)Ordered By: Mohsen Cohen on 90-10-8279Vazvnejnbxx/100 WBC (Bld)1.7 %.[facility] Erythrocyte distribution width Auto (RBC) [Ratio]Ordered By: Mohsen Cohen on 14-80-2194Nvtwtheaeov distribution width (RBC) [Ratio]13.4 %11.9-15.3FOhioHealth Van Wert HospitalFerritinon 06-69-1433Qpamexau [Mass/Vol]112.4 ng/mLNormal 11.0-306.8[facility] HospitalComment on above:Order Comment: Reason for Exam CirrhosisPerformed By: #### HCV RX PCR, HBCAB, ALPHA PHEN, SMAB, HBSAG, CERULOP, SEAN CHOICE, HBSAB #### [facility] , #### PT, HEPATIC, LIPID, JEREMY, CBC, FE and TIBC #### [facility] [address] [place] [address] USAFerritin [Mass/volume] in Serum or PlasmaOrdered By: Mohsen Cohen on 78-90-0423Vlsobjyl [Mass/Vol]112.4 ng/mL11.0-306.8[facility] Mercy HospitalGlobulin Calc (S) [Mass/Vol]Ordered By: Mohsen Cohen on 16-01-9175Cnsxviym (S) [Mass/Vol]3.2 g/dLOur Lady Of Mercy Hospital Hematocrit Auto (Bld) [Volume fraction]Ordered By: Mohsen Cohen on 04-09-2023 Hematocrit (Bld) [Volume fraction]32.3 %34.0-46.4FOhioHealth Van Wert HospitalHemoglobin [Mass/volume] in BloodOrdered By: Mohsen Cohen on 04-09-2023 Hemoglobin (Bld) [Mass/Vol]11.0 g/dL11.8-15.4FOhioHealth Van Wert Hospital Hep C Ab wRfx to Qnt PCRon 09-41-6829Ddxjwyvqv C Virus AntibodyNon-Reactive NormalNon ReactiveOur Lady Of Mercy HospitalComment on above:Order Comment: Reason for Exam CirrhosisPerformed By: #### HCV RX PCR, HBCAB, ALPHA PHEN, SMAB, HBSAG, CERULOP, SEAN CHOICE, HBSAB #### [facility] , #### PT, HEPATIC, LIPID, JEREMY, CBC, FE and TIBC #### [facility] [address] [place] [address] USAInterpretation Hepatitis CNormal.[facility] Mercy HospitalComment on above:Order Comment: Reason for Exam CirrhosisResult Comment: Not infected with HCV unless early or acute infection is suspected (which may be delayed in an immunocompromised individual), or other evidence exists to indicate HCV infection.Performed By: #### HCV RX PCR, HBCAB, ALPHA PHEN, SMAB, HBSAG, CERULOP, SEAN CHOICE, HBSAB #### [facility] , #### PT, HEPATIC, LIPID, JEREMY, CBC, FE and TIBC #### [facility] [address] [place] [address] USAHepatic Panelon 72-06-6870Girfopu [Mass/Vol]3.4 g/dLLow 3.5-5.7FOhioHealth Van Wert HospitalComment on above:Order Comment: Reason for Exam CirrhosisPerformed By: #### HCV RX PCR, HBCAB, ALPHA PHEN, SMAB, HBSAG, CERULOP, SEAN CHOICE, HBSAB #### [facility] , #### PT, HEPATIC, LIPID, JEREMY, CBC, FE and TIBC #### [facility] [address] [place] [address] USAAlbumin/Globulin [Mass ratio]1.1 {ratio}TriHealthComment on above:Order Comment: Reason for Exam Cirrhosis Performed By: #### HCV RX PCR, HBCAB, ALPHA PHEN, SMAB, HBSAG, CERULOP, SEAN CHOICE, HBSAB #### [facility] , #### PT, HEPATIC, LIPID, JEREMY, CBC, FE and TIBC #### [facility] [address] [place] [address] USAALP [Catalytic activity/Vol]53 U/MKzjqws56-729QjathvbwlOur Lady Of Mercy HospitalComment on above:Order Comment: Reason for Exam Cirrhosis Performed By: #### HCV RX PCR, HBCAB, ALPHA PHEN, SMAB, HBSAG, CERULOP, SEAN CHOICE, HBSAB #### [facility] , #### PT, HEPATIC, LIPID, JEREMY, CBC, FE and TIBC #### [facility] [address] [place] [address] USAALT [Catalytic activity/Vol]22 U/LNormal7-52Our [facility] Mer[facility] HospitalComment on above:Order Comment: Reason for Exam Cirrhosis Performed By: #### HCV RX PCR, HBCAB, ALPHA PHEN, SMAB, HBSAG, CERULOP, SEAN CHOICE, HBSAB #### [facility] , #### PT, HEPATIC, LIPID, JEREMY, CBC, FE and TIBC #### [facility] [address] [place] [address] USAAST [Catalytic activity/Vol]20 U/SPriwps12-56DinmvitrsOur Lady Of Mercy HospitalComascension borgess allegan hospital on above:Order Comment: Reason for Exam Cirrhosis Performed By: #### HCV RX PCR, HBCAB, ALPHA PHEN, SMAB, HBSAG, CERULOP, SEAN CHOICE, HBSAB #### [facility] , #### PT, HEPATIC, LIPID, JEREMY, CBC, FE and TIBC #### [facility] [address] [place] [address] USABilirubin [Mass/Vol]0.6 mg/dLNormal0.3-1.0[facility] HospitalComascension borg[facility] allegan hospital on above:Order Comment: Reason for Exam Cirrhosis Performed By: #### HCV RX PCR, HBCAB, ALPHA PHEN, SMAB, HBSAG, CERULOP, SEAN CHOICE, HBSAB #### [facility] , #### PT, HEPATIC, LIPID, JEREMY, CBC, FE and TIBC #### [facility] [address] [place] [address] USABilirubin,Indirect0.5 mg/dLNormalOur Lady Of Mercy HospitalComascension borgess allegan hospital on above:Order Comment: Reason for Exam CirrhosisPerformed By: #### HCV RX PCR, HBCAB, ALPHA PHEN, SMAB, HBSAG, CERULOP, SEAN CHOICE, HBSAB #### [facility] , #### PT, HEPATIC, LIPID, JEREMY, CBC, FE and TIBC #### [facility] [address] [place] [address] USABilirubin.indirect [Mass/Vol]0.10 mg/dLNormal0.03-0.18 [facility] HospitalComment on above:Order Comment: Reason for Exam CirrhosisPerformed By: #### HCV RX PCR, HBCAB, ALPHA PHEN, SMAB, HBSAG, CERULOP, SEAN CHOICE, HBSAB #### [facility] , #### PT, HEPATIC, LIPID, JEREMY, CBC, FE and TIBC #### [facility] [address] [place] [address] USAGlobulin (S) [Mass/Vol]3.2 g/dLNormSCCI Hospital LimaComment on above:Order Comment: Reason for Exam CirrhosisPerformed By: #### HCV RX PCR, HBCAB, ALPHA PHEN, SMAB, HBSAG, CERULOP, SEAN CHOICE, HBSAB #### [facility] , #### PT, HEPATIC, LIPID, JEREMY, CBC, FE and TIBC #### [place] [address] USAProtein [Mass/Vol]6.6 g/dLNormal6.4-8.9Our [facility] Mer[facility] HospitalComment on above:Order Comment: Reason for Exam CirrhosisPerformed By: #### HCV RX PCR, HBCAB, ALPHA PHEN, SMAB, HBSAG, CERULOP, SEAN CHOICE, HBSAB #### [facility] , #### PT, HEPATIC, LIPID, JEREMY, CBC, FE and TIBC #### [place] [address] USAHepatitis B Core Antibodyon 50-71-0358Mjcmkzjwf B Core AntibodyNegativeNormalNegativeOur Lady Of Mercy HospitalComment on above: Order Comment: Reason for Exam CirrhosisResult Comment: Performed at: - [facility] [address] [id number] Stiff Leg Derrick Operator: Bob Ramos PhD, Phone: [phone] By: #### HCV RX PCR, HBCAB, ALPHA PHEN, SMAB, HBSAG, CERULOP, SEAN CHOICE, HBSAB #### [facility] , #### PT, HEPATIC, LIPID, JEREMY, CBC, FE and TIBC #### [facility] [address] [place] [address] USAHepatitis B Surface Antibodyon 66-33-7689Oreghlxer B Surface AntibodyNon-ReactiveNormal.[facility] HospitalComment on above:Order Comment: Reason for Exam CirrhosisResult Comment: Non Reactive: Inconsistent with immunity, less than 10 mIU/mL Reactive: Consistent with immunity, greater than 9.9 mIU/mLPerformed By: #### HCV RX PCR, HBCAB, ALPHA PHEN, SMAB, HBSAG, CERULOP, SEAN CHOICE, HBSAB #### [facility] , #### PT, HEPATIC, LIPID, JEREMY, CBC, FE and TIBC #### [facility] [address] [place] [address] USAHepatitis B Surface Antigenon 02-52-0140OZeTj Screen NegativeNormalNegativeOur Lady Of Mercy HospitalComment on above:Order Comment: Reason for Exam CirrhosisResult Comment: PERFORMED BY: [place] [address] PATHOLOGIST BUMPER OPERATOR WARREN PIERCE M.D.Performed By: #### HCV RX PCR, HBCAB, ALPHA PHEN, SMAB, HBSAG, CERULOP, SEAN CHOICE, HBSAB #### [facility] , #### PT, HEPATIC, LIPID, JEREMY, CBC, FE and TIBC #### [facility] [address] [place] [id number] USAHepatitis B virus surface Ag [Presence] in Serum or Plasma by ImmunoassayOrdered By: Mohsen Cohen on 82-69-4873IMH surface Ag IA Ql NegativeNegativeOur Lady Of Mercy HospitalHepatitis C virus IgG Ab [Presence] in Serum or Plasma by ImmunoassayOrdered By: Mohsen Cohen on 46-38-1437KOW IgG IA QlNon-ReactiveNon ReactiveOur Lady Of Mercy Hospital INR in Platelet poor plasma by Coagulation assayOrdered By: Mohsen Cohen on 44-00-3520QXQ Coag (PPP) [Relative time]1.2 {INR}[facility] HospitalComment on above:INR Therapeutic Range A) Pre- and Peroperative OAT started two weeks before surgery. NOT HIP SURGERY: 1.5 - 2.5 HIP SURGERY: 2 - 3B) Primary and secondary prevention of venous THROMBOSIS: 2 - 3C) Active venous thrombosis, pulmonary embolismand prevention of recurrent venous thrombosis: 2 - 3D) Prevention of arterial thromboembolismincluding patients with mechanical heart valves: 3 - 4.5Iron [Mass/volume] in Serum or PlasmaOrdered By: Mohsen Cohen on 07-19-3770Ikky [Mass/Vol]76 ug/bV88-355YogsjcktjOur Lady Of Mercy HospitalIron and TIBC Profileon 04-09-2023% Iron Vgvzqbwxev86.7 %Mszgdw50-78 [facility] HospitalComment on above:Order Comment: Reason for Exam CirrhosisPerformed By: #### HCV RX PCR, HBCAB, ALPHA PHEN, SMAB, HBSAG, CERULOP, SEAN CHOICE, HBSAB #### [facility] , #### PT, HEPATIC, LIPID, JEREMY, CBC, FE and TIBC #### [facility] [address] [place] [address] USAIron [Mass/Vol]76 ug/rGNdixpi55-074IdruiwiczOur Lady Of Mercy HospitalComment on above:Order Comment: Reason for Exam CirrhosisPerformed By: #### HCV RX PCR, HBCAB, ALPHA PHEN, SMAB, HBSAG, CERULOP, SEAN CHOICE, HBSAB #### [facility] , #### PT, HEPATIC, LIPID, JEREMY, CBC, FE and TIBC #### [facility] [address] [place] [address] USATotal Iron Binding Vgaouwgz977 ug/oBNgvhwn359-705MscgjllksOur Lady Of Mercy HospitalComment on above:Order Comment: Reason for Exam CirrhosisPerformed By: #### HCV RX PCR, HBCAB, ALPHA PHEN, SMAB, HBSAG, CERULOP, SEAN CHOICE, HBSAB #### [facility] , #### PT, HEPATIC, LIPID, JEREMY, CBC, FE and TIBC #### [facility] [address] [place] [address] USATransferrin [Mass/Vol]251 mg/wJGyvvjh774-083NxbnprwznOur Lady Of Mercy HospitalComment on above:Order Comment: Reason for Exam Cirrhosis Performed By: #### HCV RX PCR, HBCAB, ALPHA PHEN, SMAB, HBSAG, CERULOP, SEAN CHOICE, HBSAB #### [facility] , #### PT, HEPATIC, LIPID, JEREMY, CBC, FE and TIBC #### [facility] [address] [place] [address] USAIron binding capacity [Mass/volume] in Serum or Plasma Ordered By: Mohsen Cohen on 31-39-4784Nkgt binding capacity [Mass/Vol]351 ug/dL 255-450Our [facility] Of Mercy HospitalIron saturation [Mass Fraction] in Serum or PlasmaOrdered By: Mohsen Cohen on 81-15-6644Bgwu saturation [Mass fraction] 21.7 %20-50Our [facility] Mercy HospitalLeukocytes [#/volume] corrected for nucleated erythrocytes in Blood by Automated counOrdered By: Mohsen Cohen on 65-15-8364GUO corrected for nucl RBC Auto (Bld) [#/Vol]5.2 10*3/uL3.8-11.6 [facility] HospitalLipid Panelon 63-57-3050Gfnxahifrwq [Mass/Vol] 116 mg/mYIrj551-969TulcqdghyOur Lady Of Mercy HospitalComment on above:Order Comment: Reason for Exam CirrhosisResult Comment: Chol less than 200 mg/dl low risk Chol 201-239 mg/dl borderline risk Chol 240 mg/dl and greater high riskPerformed By: #### HCV RX PCR, HBCAB, ALPHA PHEN, SMAB, HBSAG, CERULOP, SEAN CHOICE, HBSAB #### [facility] , #### PT, HEPATIC, LIPID, JEREMY, CBC, FE and TIBC #### [facility] [address] [place] [address] USACholesterol in HDL [Mass/Vol]36 mg/eTQisiga22-89MkqvucuxeOur Lady Of Mercy HospitalComment on above:Order Comment: Reason for Exam Cirrhosis Result Comment: HDL CHOL ATP-III CLASSIFICATION Cardiovascular Risk HDL > or equal to 60 mg/dL LOW HDL < 40 mg/dL HIGHPerformed By: #### HCV RX PCR, HBCAB, ALPHA PHEN, SMAB, HBSAG, CERULOP, SEAN CHOICE, HBSAB #### [facility] , #### PT, HEPATIC, LIPID, JEREMY, CBC, FE and TIBC #### [facility] [address] [place] [address] USACholesterol.total/Cholesterol in HDL [Mass ratio]3.2 {ratio}Normal<5.0Our [facility] Mer[facility] HospitalComment on above:Order Comment: Reason for Exam CirrhosisResult Comment: PERFORMED BY: [place] [address] PATHOLOGIST BUMPER OPERATOR WARREN PIERCE M.D.Performed By: #### HCV RX PCR, HBCAB, ALPHA PHEN, SMAB, HBSAG, CERULOP, SEAN CHOICE, HBSAB #### [facility] , #### PT, HEPATIC, LIPID, JEREMY, CBC, FE and TIBC #### [facility] [address] [place] [address] USALDL Cholesterol,[id number] mg/dLNormal0-100[facility] Mercy HospitalComment on above:Order Comment: Reason for Exam Cirrhosis Result Comment: LDL ATP III CLASSIFICATION LDL less than 100 mg/dL Optimal LDL 100-129 mg/dL Near or above optimal LDL 130-159 mg/dL Borderline high LDL 160-189 mg/dL High LDL greater than 189 mg/dL Very highPerformed By: #### HCV RX PCR, HBCAB, ALPHA PHEN, SMAB, HBSAG, CERULOP, SEAN CHOICE, HBSAB #### [facility] , #### PT, HEPATIC, LIPID, JEREMY, CBC, FE and TIBC #### [facility] [address] [place] [id number] USATriglyceride w/Vrdsir655 mg/dLNormal0-149[facility] Mercy HospitalComment on above:Order Comment: Reason for Exam Cirrhosis Result Comment: TRIG ATP III CLASSIFICATION TRIG less than 150 mg/dL Normal TRIG 150-199 mg/dL Borderline high TRIG 200-500 mg/dL High TRIG greater than 500 mg/dL Very high Standard traceable to the Center for Disease Conrtrol and Prevention (CDC) test method.Performed By: #### HCV RX PCR, HBCAB, ALPHA PHEN, SMAB, HBSAG, CERULOP, SEAN CHOICE, HBSAB #### [facility] , #### PT, HEPATIC, LIPID, JEREMY, CBC, FE and TIBC #### [facility] [address] [place] [address] USAVLDL TCJJRGQDVZQ01 mg/dLNormalOur Lady Of Mercy HospitalComment on above:Order Comment: Reason for Exam CirrhosisPerformed By: #### HCV RX PCR, HBCAB, ALPHA PHEN, SMAB, HBSAG, CERULOP, SEAN CHOICE, HBSAB #### [facility] , #### PT, HEPATIC, LIPID, JEREMY, CBC, FE and TIBC #### [facility] [address] [place] [address] USALymphocytes Auto (Bld) [#/Vol]Ordered By: Mohsen Cohne on 33-92-1211Viaectndetw (Bld) [#/Vol]0.7 10*3/uL1.00-4.8Our [facility] Of Mercy HospitalLymphocytes/100 WBC Auto (Bld)Ordered By: Mohsen Cohen on 70-98-7417Xbslsmrqhjf/100 WBC (Bld)13.9 %.[facility] Auto (RBC) [Entitic mass]Ordered By: Mohsen Cohen on 41-74-0088KNK (RBC) [Entitic mass]34.2 pg24.7-34.3FOhio State Health SystemHC Auto (RBC) [Mass/Vol]Ordered By: Mohsen Cohen on 55-29-3692FCXU (RBC) [Mass/Vol]34.2 g/dL 32.0-35.0Our [facility] Mer[facility] HospitalMCV Auto (RBC) [Entitic vol]Ordered By: Mohsen Cohen on 59-70-6934NMH (RBC) [Entitic vol]100.1 dV17-877LckvlwvpvOur Lady Of Mercy HospitalMonocytes Auto (Bld) [#/Vol]Ordered By: Mohsen Cohen on 77-27-1438Macdnaejg (Bld) [#/Vol]0.4 10*3/uL0.0-0.8Our [facility] Mer[facility] HospitalMonocytes/100 WBC Auto (Bld)Ordered By: Mohsen Cohen on 04-09-2023 Monocytes/100 WBC (Bld)7.1 %.[facility] Mer[facility] HospitalNeutrophils Auto (Bld) [#/Vol]Ordered By: Mohsen Cohen on 25-64-6881Lriiymqwndn (Bld) [#/Vol]4.0 10*3/uL1.8-7.7FOhioHealth Van Wert HospitalNeutrophils/100 WBC Auto (Bld) Ordered By: Mohsen Cohen on 32-01-6902Xxfvmpfoqek/100 WBC (Bld)77.1 %.[facility] HospitalNo Panel InformationOrdered By: Mohsen Cohen on 63-57-0536Qrlgzybmk B Core Total AntibodyNegativeNegativeOur Lady Of Mercy HospitalComment on above:Performed at: [facility] Director: Bob Ramos PhD, Phone: [phone] Hepatitis C InterpretationSee comment.[facility] Of Mercy HospitalComment on above:Not infected with HCV unless early or acute infection issuspected (which may be delayed in an immunocompromisedindividual), or other evidence exists to indicate HCVinfection.Nucleated erythrocytes [Presence] in Blood by Automated countOrdered By: Mohsen Cohen on 14-03-5113Bhslvkhxy RBC Auto Ql (Bld)0.1 /100{WBC}0-0.5FOhioHealth Van Wert HospitalPlatelet mean volume Auto (Bld) [Entitic vol]Ordered By: Mohsen Cohen on 21-12-9828Ttqmrobb mean volume (Bld) [Entitic vol]8.5 fL6.3-10.7FOhioHealth Van Wert Hospital Platelets Auto (Bld) [#/Vol]Ordered By: Mohsen Cohen on 07-50-4015Ribjamfbj (Bld) [#/Vol]147 10*3/sU836-600UjymdylxsOur Lady Of Mercy HospitalProtein [Mass/volume] in Serum or PlasmaOrdered By: Mohsen Cohen on 85-02-1501Joknbxf [Mass/Vol]6.6 g/dL6.4-8.9Our [facility] Mer[facility] HospitalProthrombin Time INRon 95-52-6469BES Coag (PPP) [Relative time]1.2 {INR}NormalOur Lady Of Mercy HospitalComment on above:Order Comment: Reason for Exam CirrhosisResult Comment: INR Therapeutic Range A) Pre- and Peroperative OAT started two weeks before surgery. NOT HIP SURGERY: 1.5 - 2.5 HIP SURGERY: 2 - 3 B) Primary and secondary prevention of venous THROMBOSIS: 2 - 3 C) Active venous thrombosis, pulmonary embolism and prevention of recurrent venous thrombosis: 2 - 3 D) Prevention of arterial thromboembolism including patients with mechanical heart valves: 3 - 4.5 PERFORMED BY: [place] [address] PATHOLOGIST BUMPER OPERATOR WARREN PIERCE M.D.Performed By: #### HCV RX PCR, HBCAB, ALPHA PHEN, SMAB, HBSAG, CERULOP, SEAN CHOICE, HBSAB #### [facility] , #### PT, HEPATIC, LIPID, JEREMY, CBC, FE and TIBC #### [facility] [address] [place] [address] USAPT Coag (PPP) [Time]14.2 sHigh9.0-12.9Our Lady Of Mercy HospitalComment on above:Order Comment: Reason for Exam CirrhosisResult Comment: A hematocrit value greater than 55% may lead to inaccurate results in coagulation testing. Patients having hematocrit values >55% require a special collection tube for coagulation studies. Please contact the laboratory at [phone] for redraw instructions.Performed By: #### HCV RX PCR, HBCAB, ALPHA PHEN, SMAB, HBSAG, CERULOP, SEAN CHOICE, HBSAB #### [facility] , #### PT, HEPATIC, LIPID, JEREMY, CBC, FE and TIBC #### [facility] [address] [place] [address] USAProthrombin time (PT)Ordered By: Mohsen Cohen on 17-20-7437ZZ Coag (PPP) [Time]14.2 s9.0-12.9[facility] Comment on above:A hematocrit value greater than 55% may lead to inaccurate results in coagulation testing. Patientshaving hematocrit values >55% require a special collection tube for coagulation studies. Please contact the laboratory at [phone] for redraw instructions.RBC Auto (Bld) [#/Vol]Ordered By: Mohsen Cohen on 99-22-6799AJE (Bld) [#/Vol]3.23 10*6/uL3.60-5.00[facility] Medical Centererum bllvm-5-aqeevdavtyq measurementOrdered By: Mohsen Cohen on 33-90-9481Sqsqx 1 antitrypsin [Mass/Vol]177 mg/jV375-561OtwjvzugrUniversity Hospitals Portage Medical Centererum hepatitis B virus surface antibody detectionOrdered By: Mohsen Cohen on 70-80-6300GRQ surface Ab Ql (S)Non-Reactive.Our [facility] Of Mercy HospitalComment on above:Non Reactive: Inconsistent with immunity, less than 10 mIU/mL Reactive: Consistent with immunity, greater than 9.9 mIU/mLSerum or plasma albumin/globulin mass ratioOrdered By: Mohsen Cohen on 96-44-9039Fdvmnxq/Globulin [Mass ratio]1.1 {ratio}[facility] Medical Centererum or plasma alpha 1 antitrypsin phenotyping identification by immunofixationOrdered By: Mohsen Cohen on 30-59-7049Ktlzi 1 antitrypsin phenotyping Immunofixation NomMm.Our Lady Of Mercy HospitalComment on above:Phenotype Population A-1-AT Concentration* Incidence % % of MM (Typical Range) MM 86.5% 100% (96 - 189) MS 8.0% 86% (83 - 161) MZ 3.9% 61% (60 - 111) FM 0.4% 100% (93 - 191) SZ 0.3% 41% (42 - 75) SS 0.1% 64% (62 - 119) ZZ 0.05% 19% (16 - 38) FS 0.05% 70% (70 - 128) FZ Unknown 46% (44 - 88) FF Unknown Unknown*A-1-AT concentration in the homozygous MM phenotype is taken as the reference normal. Percent deficiency in each phenotype is reported relative to this reference. Ranges used to confirm phenotype.Performed at: [facility] [id number] Director: Bob Ramos PhD, Phone: [phone] at: [id number] Director: Tim Boyd MD, Phone: [phone] or plasma ceruloplasmin measurement (mass/volume)Ordered By: Mohsen Cohen on 06-15-2866Innoptdbxrxhs [Mass/Vol]38.9 mg/dL19.0-39.0Our [facility] Of Mercy HospitalComment on above:Performed at: [facility] [id number] Director: Bob Ramos PhD, Phone: [phone] or plasma free cefuroxime measurement (mass/volume)Ordered By: Mohsen Cohen on 18-58-4824Rasxdzevdv free [Mass/Vol]NegativeNegativeOur Lady Of Mercy HospitalComment on above:Performed at: [facility] [id number] Director: Bob Ramos PhD, Phone: [phone] or plasma high density lipoprotein (HDL) cholesterol measurementOrdered By: Mohsen Cohen on 30-81-0934Zbdxkumqyfl in HDL [Mass/Vol]36 mg/zA42-14ZqydxvesxOur Lady Of Mercy HospitalComment on above:HDL CHOL ATP-III CLASSIFICATION Cardiovascular RiskHDL > or equal to 60 mg/dL LOWHDL < 40 mg/dL HIGHSerum or plasma non-glucuronidated bilirubin measurement (mass/volume)Ordered By: Mohsen Cohen on 08-42-4228Vzhagcdee.indirect [Mass/Vol]0.5 mg/dLUniversity Hospitals Portage Medical Centererum or plasma total cholesterol/high density lipoprotein (HDL) cholesterol mass ratOrdered By: Mohsen Cohen on 04-09-2023 Cholesterol.total/Cholesterol in HDL [Mass ratio]3.2 {ratio}<5.0[facility] Medical Centermooth Muscle Antibodyon 44-72-9710Dridmz Muscle Antibody 5Sfqgvv0-54XkdntqrweOur Lady Of Mercy HospitalComment on above:Order Comment: Reason for Exam CirrhosisResult Comment: Negative 0 - 19 Weak positive 20 - 30 Moderate to strong positive >30 Actin Antibodies are found in 52-85% of patients with autoimmune hepatitis or chronic active hepatitis and in 22% of patients with primary biliary cirrhosis. Performed at: - [facility] [id number] Stiff [employer] Derrick Operator: Bob Ramos PhD, Phone: [phone] PERFORMED BY: [place] [address] PATHOLOGIST BUMPER OPERATOR WARREN PIERCE M.D.Performed By: #### HCV RX PCR, HBCAB, ALPHA PHEN, SMAB, HBSAG, CERULOP, SEAN CHOICE, HBSAB #### [facility] , #### PT, HEPATIC, LIPID, JEREMY, CBC, FE and TIBC #### [place] [address] USATransferrin [Mass/volume] in Serum or PlasmaOrdered By: Mohsen Cohen on 50-23-9246Bbtjvjfjjmr [Mass/Vol]251 mg/kA504-213GahwnnyvwOur Lady Of Mercy HospitalTriglyceride [Mass/volume] in Serum or PlasmaOrdered By: Mohsen Cohen on 99-65-6375Stnvqaiwstwy [Mass/Vol]115 mg/dL0-149Our [facility] Of Mercy HospitalComment on above:TRIG ATP III CLASSIFICATIONTRIG less than 150 mg/dL NormalTRIG 150-199 mg/dL Borderline highTRIG 200-500 mg/dL High TRIG greater than 500 mg/dL Very highStandard traceable to the Center for Disease Conrtrol and Prevention (CDC) test method.WBC Auto (Bld) [#/Vol]Ordered By: Mohsen Cohen on 59-54-5115YCR (Bld) [#/Vol]5.2 10*3/uL3.8-11.6FOhioHealth Van Wert HospitalGLUCOSE POCon 94-37-2923Yndeqoz [Mass/Vol]171 mg/sPTnwk27 - 99 mg/dLU [facility]xner Medical CenterInterpretation and review of laboratory resultsAbnoKeenan Private HospitalPOC Sample TypeVENOOCleveland Clinic Mercy HospitalTest performed at address of the patient encounter.[facility] CincinnatiOS[facility] CincinnatiMR Pelvis WO and W contrast Jade 07-06-2022 IMPRESSION: 1. Soft tissue edema/inflammation along the right pelvic sidewall and along the right anterior acetabular column with adjacent periostitis although there is no discrete lesion visualized. 2. Osteoarthritic changes of bilateral hips with an associated anterior right acetabular labral tear. 3. Stable cystic lesion within the left pelvis. I personally viewed and interpreted these images and I have reviewed and approved this report. RADIOLOGYEXAM: MRI PELVIS MSK WITH AND WITHOUT CONTRAST, 07/06/2022 11:29 AM CLINICAL INDICATIONS: righ pelvic lesions PET avid, no ameable to IR biopsy, Need to evaluate further; RELEVANT CLINICAL HISTORY: C54.1:Endometrial cancer R19.00:Pelvic mass Sex: Female, Age: 66 years COMPARISON: PET/CT June 11, 2022 CONTRAST: gadoterate Meglumine (DOTAREM) 5 MMOL/10ML injection 3-60 mL; Route of Administration: Intravenous; Dose: 28 mL. TECHNIQUE: Multiplanar multisequence imaging of the pelvis was performed prior to and after the intravenous administration of Gadolinium contrast. FINDINGS: Soft Tissue: There is faint edema in the subcutaneous fat along the anterior right acetabulum and right adductor muscles. There is an anterior right acetabular labral tear. Bone: There is mild periostitis of the right anterior acetabular column with no intraosseous lesions. Osteoarthritic changes of the bilateral hips. Muscles: Muscles demonstrate normal morphology and signal intensity. No pathologic muscular enhancement. Pelvic contents: Soft tissue edema along the right pelvic sidewall and along the right anterior acetabular column. There is a redemonstrated 6.2 x 5.2 cm cystic lesion within the left para midline pelvis which is unchanged compared to recent PET/CT. Multilevel spondylosis of the partially visualized lumbar spine. RADIOLOGYPranav Marquis MD - 07/06/2022 EXAM: MRI PELVIS MSK WITH AND WITHOUT CONTRAST, 07/06/2022 11:29 AM CLINICAL INDICATIONS: righ pelvic lesions PET avid, no ameable to IR biopsy, Need to evaluate further; RELEVANT CLINICAL HISTORY: C54.1:Endometrial cancer R19.00:Pelvic mass Sex: Female, Age: 66 years COMPARISON: PET/CT June 11, 2022 CONTRAST: gadoterate Meglumine (DOTAREM) 5 MMOL/10ML injection 3-60 mL; Route of Administration: Intravenous; Dose: 28 mL. TECHNIQUE: Multiplanar multisequence imaging of the pelvis was performed prior to and after the intravenous administration of Gadolinium contrast. FINDINGS: Soft Tissue: There is faint edema in the subcutaneous fat along the anterior right acetabulum and right adductor muscles. There is an anterior right acetabular labral tear. Bone: There is mild periostitis of the right anterior acetabular column with no intraosseous lesions. Osteoarthritic changes of the bilateral hips. Muscles: Muscles demonstrate normal morphology and signal intensity. No pathologic muscular enhancement. Pelvic contents: Soft tissue edema along the right pelvic sidewall and along the right anterior acetabular column. There is a redemonstrated 6.2 x 5.2 cm cystic lesion within the left para midline pelvis which is unchanged compared to recent PET/CT. Multilevel spondylosis of the partially visualized lumbar spine. IMPRESSION IMPRESSION: 1. Soft tissue edema/inflammation along the right pelvic sidewall and along the right anterior acetabular column with adjacent periostitis although there is no discrete lesion visualized. 2. Osteoarthritic changes of bilateral hips with an associated anterior right acetabular labral tear. 3. Stable cystic lesion within the left pelvis. I personally viewed and interpreted these images and I have reviewed and approved this report. [facility] HospitalRadiology Study observation (narrative)[facility] HospitalMR Pelvis WO and W contrast IVOrdered By: Pranav Marquis on 44-53-2197[facility] Work Phone: GLUCOSE POCon 53-27-7964Qbkdsne [Mass/Vol]129 mg/dL High70 - 99 mg/dLOSU [facility] Hospital - CincinnatiInterpretation and review of laboratory resultsAbnormalOSU [facility] Hospital - CincinnatiPOC Sample TypeCAPBLOSU [facility] Hospital [facility] CincinnatiTest performed at address of the patient encounter.[facility] CincinnatiOS[facility] CincinnatiPT Unspecified body regionon 49-89-1221NHSNCVWJSQ: Amorphous soft tissue within the right pelvic sidewall, intimately associated with the right acetabulum, demonstrates intense metabolic activity, suspicious for recurrent carcinoma. Thank you for allowing Nuclear Medicine Oncology Imaging at [facility] to assist in the care of this patient. OLOGYEXAM: NUC PET OTHER, 06/11/2022 16:40 PM CLINICAL INDICATIONS: History of recurrent endometrial now with a new cystic pelvic mass. Please evaluate for FDG activity and other possible areas of disease.; , COMPARISON: No prior studies available for comparison. CT DOSE: DLP: 1695 mGy x cm kVp: 120 TECHNIQUE: The patient's fasting blood glucose was 129 mg/dl. Approximately 66 minutes following the injection of 12.6 mCi of F-18 FDG, the patient was positioned on the Siemens Biograph mCT TOF< PET/CT-64, Jai imaging unit. A low resolution non-contrast CT was obtained from the top of the head through the mid-femurs for use in attenuation correction and anatomic correlation. PET emission scans of this anatomic region were acquired shortly thereafter. Axial, sagittal, coronal and maximal intensity projection reconstruction images were presented for interpretation. FINDINGS: Head/Neck: Physiologic FDG uptake is noted in the salivary glands and tonsillar tissue. There is no hypermetabolic cervical or supraclavicular lymphadenopathy. Normal, intense physiologic uptake is noted in the cerebral cortex bernal matter and subcortical nuclei without gross hypermetabolic abnormality. Chest: There are no hypermetabolic pulmonary parenchymal lesions. Incidental note of accessory azygous lobe. There is no hypermetabolic axillary, mediastinal, or hilar lymphadenopathy. Physiologic FDG uptake is seen in the myocardium. Abdomen/Pelvis: Physiologic FDG uptake is seen throughout the liver, spleen and bowel. Physiologic FDG excretion is seen in the kidneys, ureters, and bladder. There are no hypermetabolic lesions in the adrenal glands. There is no hypermetabolic inguinal, retroperitoneal, paraaortic or portocaval lymphadenopathy. Amorphous soft tissue within the right pelvic sidewall, intimately associated with the right acetabulum, demonstrates intense FDG uptake SUV max 15.8 (series 3 image 252); there appears to be regions of central calcification. Cystic lesion within the left pelvis without significant FDG uptake is unchanged. Interval passage of previously identified right distal ureteral stone. Musculoskeletal: There is heterogenous FDG uptake throughout the axial and proximal appendicular skeleton, likely due to marrow stimulation, limiting metabolic evaluation of malignant disease in the osseous structures. Heterogeneous FDG uptake within the sternum is nonspecific. No focal hypermetabolic osseous lesions are identified. [facility]YEll[facility] - 06/11/2022 EXAM: NUC PET OTHER, 06/11/2022 16:40 PM CLINICAL INDICATIONS: History of recurrent endometrial now with a new cystic pelvic mass. Please evaluate for FDG activity and other possible areas of disease.; , COMPARISON: No prior studies available for comparison. CT DOSE: DLP: 1695 mGy x cm kVp: 120 TECHNIQUE: The patient's fasting blood glucose was 129 mg/dl. Approximately 66 minutes following the injection of 12.6 mCi of F-18 FDG, the patient was positioned on the Siemens Biograph mCT TOF< PET/CT-64, Jai imaging unit. A low resolution non-contrast CT was obtained from the top of the head through the mid-femurs for use in attenuation correction and anatomic correlation. PET emission scans of this anatomic region were acquired shortly thereafter. Axial, sagittal, coronal and maximal intensity projection reconstruction images were presented for interpretation. FINDINGS: Head/Neck: Physiologic FDG uptake is noted in the salivary glands and tonsillar tissue. There is no hypermetabolic cervical or supraclavicular lymphadenopathy. Normal, intense physiologic uptake is noted in the cerebral cortex bernal matter and subcortical nuclei without gross hypermetabolic abnormality. Chest: There are no hypermetabolic pulmonary parenchymal lesions. Incidental note of accessory azygous lobe. There is no hypermetabolic axillary, mediastinal, or hilar lymphadenopathy. Physiologic FDG uptake is seen in the myocardium. Abdomen/Pelvis: Physiologic FDG uptake is seen throughout the liver, spleen and bowel. Physiologic FDG excretion is seen in the kidneys, ureters, and bladder. There are no hypermetabolic lesions in the adrenal glands. There is no hypermetabolic inguinal, retroperitoneal, paraaortic or portocaval lymphadenopathy. Amorphous soft tissue within the right pelvic sidewall, intimately associated with the right acetabulum, demonstrates intense FDG uptake SUV max 15.8 (series 3 image 252); there appears to be regions of central calcification. Cystic lesion within the left pelvis without significant FDG uptake is unchanged. Interval passage of previously identified right distal ureteral stone. Musculoskeletal: There is heterogenous FDG uptake throughout the axial and proximal appendicular skeleton, likely due to marrow stimulation, limiting metabolic evaluation of malignant disease in the osseous structures. Heterogeneous FDG uptake within the sternum is nonspecific. No focal hypermetabolic osseous lesions are identified. IMPRESSION IMPRESSION: Amorphous soft tissue within the right pelvic sidewall, intimately associated with the right acetabulum, demonstrates intense metabolic activity, suspicious for recurrent carcinoma. Thank you for allowing Nuclear Medicine Oncology Imaging at [facility] to assist in the care of this patient. [facility] HospitalRadiology Study observation (narrative)[facility] HospitalPT Unspecified body regionOrdered By: Lee Jean on 43-36-7731XTYMercy Health St. Elizabeth [facility] Hospital Work Phone: CALCULI, URINARYon ,8 Dihydroxyadenine NormalThe [facility] [address] Charles HospitalComment on above:Performed By: #### CALCULI #### [facility] [address] [address] [address] Noemy QuirosAmmonium Acid UrateNormalMccullough-Hyde Memorial HospitalComment on above: Performed By: #### CALCULI #### [facility] [address] [address] [address] Noemy QuirosBilirubin Ql (U)NormalThe [facility] St. Charles HospitalComment on above: Performed By: #### CALCULI #### [facility] [address] [address] [address] Noemy QuirosCa Oxalate DihydrateNormalMccullough-Hyde Memorial HospitalComment on above: Performed By: #### CALCULI #### [facility] [address] [address] [address] Noemy BermudezHPO4 (Brushite)NormalMccullough-Hyde Memorial HospitalComascension borgess allegan hospital on above: Performed By: #### CALCULI #### [facility] [address] [address] [address] Noemy QuirosCalcium BilirubinateNCherrington HospitalComascension borgess allegan hospital on above: Performed By: #### CALCULI #### [facility] [address] [address] [address] Noemy QuirosCalcium CarbonateSt. Mary's Medical CenterComascension borgess allegan hospital on above: Performed By: #### CALCULI #### [facility] [address] [address] [address] Noemy Allenium Oxalate MonohydrateNCherrington HospitalComascension borgess allegan hospital on above:Performed By: #### CALCULI #### [facility] [address] [address] [address] Noemy Allenium PalmitateSt. Mary's Medical CenterComascension borgess allegan hospital on above: Performed By: #### CALCULI #### [facility] [address] [address] [address] Noemy QuirosCalcium PhosphateOhioHealth Berger Hospital on above: Performed By: #### CALCULI #### [facility] [address] [address] [address] Noemy Allenium StearateNParma Community General Hospital on above: Performed By: #### CALCULI #### [facility] [address] [address] [address] Noemy QuirosCarbonate ApatiteOhioHealth Berger Hospital on above: Performed By: #### CALCULI #### [facility] [address] [address] [address] Noemy QuirosCellular MaterialOhioHealth Berger Hospital on above: Performed By: #### CALCULI #### [facility] [address] [address] [address] Noemy QuirosCholesterolSt. Mary's Medical CenterComascension borgess allegan hospital on above:Performed By: #### CALCULI #### [facility] [address] [address] [address] Noemy Salinas ([facility] on above: Performed By: #### CALCULI #### [facility] [address] [address] [address] Noemy WorthyUniversity Hospitals Portage Medical Center on above:Performed By: #### CALCULI #### [facility] [address] [address] [address] Noemy ePrez:CommentOhioHealth Berger Hospital on above:Result Comment: Physician questions regarding Calculi Analysis contact LabBoone [facility] at: [phone].Performed By: #### CALCULI #### [facility] [address] [place] [address] Dr. Noemy WorthySelect Medical Specialty Hospital - Youngstown on above: Result Comment: Percentage (Represents the % composition)Performed By: #### CALCULI #### [facility] [address] [place] [address] Dr. Noemy QuirosGreene Memorial Hospital on above:Performed By: #### CALCULI #### [facility] [address] [place] [address] Dr. Noemy Dotson:CommentOhioHealth Berger Hospital on above: Result Comment: This test was developed and its performance characteristics determined by [facility]. It has not been cleared or approved by the Food and Drug Administration.Performed By: #### CALCULI #### [facility] [address] [place] [address] Dr. Noemy Doran [facility] on above:Performed By: #### CALCULI #### [facility] [address] [address] [address] Noemy QuirosPresbyterian Medical Center-R[facility]o or [facility] HospitalComasc[facility] on above: Performed By: #### CALCULI #### [facility] [address] [address] [address] Noemy QuirosEast OrangexyapatiteOhioHealth Berger Hospital on above: Performed By: #### CALCULI #### [facility] [address] [address] [address] Noemy QuirosMg NH4 PO4 (Struvite)[facility] on above: Performed By: #### CALCULI #### [facility] [address] [address] [address] Noemy QuirosMgHPO4 (Newberyite)[facility] on above: Performed By: #### CALCULI #### [facility] [address] [address] [address] Noemy QuirosOther component(s)[facility] on above: Performed By: #### CALCULI #### [facility] [address] [address] [address] Noemy BarahonaF.[facility] on above:Performed By: #### CALCULI #### [facility] [address] [address] [address] Noemy BondOhioHealth Berger Hospital on above:Result Comment: Photograph will follow under a separate coverPerformed By: #### CALCULI #### [facility] [address] [address] [address] Noemy Bolanos note:CommentOhioHealth Berger Hospital on above: Result Comment: Calculi report will follow via computer, mail or bar back delivery.Performed By: #### CALCULI #### [facility] [address] [address] [address] Noemy ArayaEdeoqZzwo7t8WmhygsCslOhioHealth Berger Hospital on above:Result Comment: Single piece received.Performed By: #### CALCULI #### [facility] [address] [address] [address] Noemy Aceves UrateNParma Community General Hospital on above: Performed By: #### CALCULI #### [facility] [address] [address] [address] Noemy RedUniversity Hospitals Portage [facility] on above:Result Comment: Right UreterPerformed By: #### CALCULI #### [facility] [address] [address] [address] Noemy LalaKettering Health HamiltonComascension borg[facility] allegan hospital on above:Performed By: #### CALCULI #### [facility] [address] [address] [address] Noemy QuirosUric Xnds666 %NormalMccullough-Hyde Memorial HospitalComascension b[facility] hospital on above: Performed By: #### CALCULI #### [facility] [address] [address] [address] Noemy QuirosUric Acid DihydrateNormalMccullough-Hyde Memorial HospitalComascension [facility] on above: Performed By: #### CALCULI #### [facility] [address] [address] [address] [place], [place] [address] on above:Performed By: #### CALCULI #### [facility] [address] [place] [address] Dr. Noemy MedinaLouis Stokes Cleveland VA Medical CenterComascension [facility] on above:Performed By: #### CALCULI #### [facility] [address] [place] [address] Dr. Noemy Sanon BLOODon [id number] examination of blood, cultureCulture Observations: Aerobic bottle positive; BCID: E. Coli Culture Observations: NO GROWTH IN ANAEROBIC BOTTLE AT 5 DAYS. Culture Observations: JAEL TO FOLLOW. Isolate 1 Escherichia coli Growth of ORGANISM 1 Escherichia coli ANTIBIOTIC M.I.C RX STATUS Ampicillin >=32 R F Ampicillin/Sulbactam 16 I F Piperacillin/Tazobactam <=4 S F Cefazolin <=4 S F Ceftazidime <=1 S F Ceftriaxone <=1 S F Ertapenem <=0.5 S F Imipenem <=0.25 S F Amikacin <=2 S F Gentamicin <=1 S F Tobramycin <=1 S F Ciprofloxacin <=0.25 S F Levofloxacin <=0.12 S F Trimethoprim/Sulfamethoxazole <=20 S FNormalMccullough-Hyde Memorial HospitalComment on above:Performed By: #### ERUR, UMICRO #### [facility] [address] [place] [address] Dr. Noemy Wong AUTO DIFFon [id number] #0.0 103/ulNormal0.0-0.1M[facility]ullough-Hyde Memorial HospitalComment on above:Performed By: #### CBC #### [facility] [address] [place] [address] Dr. Noemy QuirosBasophils/100 WBC (Bld)0.1 %Critically low0.2-2.0The [facility] HospitalComment on above:Performed By: #### CBC #### [facility] [address] [place] [address] Dr. Noemy Augustin #0.0 103/ulNormal0.0-0.7The [facility] HospitalComment on above: Performed By: #### CBC #### [facility] [address] [place] [address] Dr. Noemy Cheneyosinophils/100 WBC (Bld)0.1 %Critically low0.9-7.0The [facility] HospitalComment on above:Performed By: #### CBC #### [facility] [address] [place] [address] Dr. Noemy Cheneyrythrocyte distribution width (RBC) [Ratio]13.2 %Pthlmc41.0-15.0 [facility] Memorial HospitalComment on above:Performed By: #### CBC #### [facility] [address] [place] [address] Dr. Noemy QuirosHematocrit (Bld) [Volume fraction]26.4 %Critically low36.0-48.[address] [facility] HospitalComment on above:Performed By: #### CBC #### [facility] [address] [place] [address] Dr. Noemy QuirosHemoglobin (Bld) [Mass/Vol]8.7 g/dLCritically low12.0-16.0[facility] HospitalComment on above:Performed By: #### CBC #### [facility] [address] [place] [address] Dr. Noemy Briceno #0.11 10e3/ulCritically high0.00-0.03[facility] Comment on above:Performed By: #### CBC #### [facility] [address] [place] [address] Dr. Noemy Briceno %1.2 %Critically high0.0-0.5The [facility] HospitalComment on above:Performed By: #### CBC #### [facility] [address] [address] [address] Noemy Ayala #0.3 103/ulCritically low1.2-3.8The [facility] Comment on above:Performed By: #### CBC #### [facility] [address] [place] [address] Dr. Noemy Pophocytes/100 WBC (Bld)2.9 %Critically low20.5-60.0The [facility] HospitalComment on above:Performed By: #### CBC #### [facility] [address] [place] [address] Dr. Noemy Harris DIFF REQNONormalThe [facility] HospitalComment on above: Performed By: #### CBC #### [facility] [address] [place] [address] Dr. Noemy Romano (RBC) [Entitic mass]32.7 uwMgsbkq09.7-34.0The [facility] HospitalComment on above:Performed By: #### CBC #### [facility] [address] [place] [address] Dr. Noemy Limon (RBC) [Mass/Vol]33.0 g/fDMegfcv98.9-35.2The [facility] HospitalComment on above:Performed By: #### CBC #### [facility] [address] [place] [address] Dr. Noemy Limon (RBC) [Entitic vol]99.2 fLCritically high81.0-99.0The [facility] HospitalComment on above:Performed By: #### CBC #### [facility] [address] [place] [address] Dr. Noemy Bear #0.5 103/ulNormal0.3-0.8The [facility] HospitalComment on above:Performed By: #### CBC #### [facility] [address] [place] [address] Dr. Noemy Olivaresocytes/100 WBC (Bld)5.2 %Normal1.7-12.0[facility] Comment on above:Performed By: #### CBC #### [facility] [address] [place] [address] Dr. Noemy Kohler #8.4 103/ulCritically high1.4-6.5The [facility] Comment on above:Performed By: #### CBC #### [facility] [address] [place] [address] Dr. Noemy Lopezutrophils/100 WBC (Bld)90.5 %Critically high43.0-75.0The [facility] HospitalComment on above:Performed By: #### CBC #### [facility] [address] [place] [address] Dr. Noemy Richardson mean volume (Bld) [Entitic vol]10.0 fLNormal9.5-13.5The [facility] HospitalComment on above:Performed By: #### CBC #### [facility] [address] [place] [address] Dr. Noemy QuirosPLT172 103/lyKuxmqe127-414Rqa [facility] HospitalComment on above: Performed By: #### CBC #### [facility] [address] [place] [address] Dr. Noemy QuirosRBC2.66 106/ulCritically low4.20-5.40The [facility] HospitalComment on above:Performed By: #### CBC #### [facility] [address] [place] [address] Dr. Noemy QuirosWBC9.2 103/ulNormal4.0-11.0The [facility] HospitalComment on above: Performed By: #### CBC #### [facility] [address] [place] [address] Dr. Noemy Sanon URINEon [id number] URINEIsolate 1 Escherichia coli >100,000 cfu/mL of ORGANISM 1 Escherichia coli ANTIBIOTIC M.I.C RX STATUS Ampicillin >=32 R F Ampicillin/Sulbactam 16 I F Piperacillin/Tazobactam <=4 S F Cefazolin <=4 S F Ceftazidime <=1 S F Ceftriaxone <=1 S F Ertapenem <=0.5 S F Imipenem <=0.25 S F Amikacin <=2 S F Gentamicin <=1 S F Tobramycin <=1 S F Ciprofloxacin <=0.25 S F Levofloxacin <=0.12 S F Nitrofurantoin <=16 S F Trimethoprim/Sulfamethoxazole <=[address] [facility] [address] [facility] HospitalComment on above:Performed By: #### MELANI BAAZNRO #### [facility] [address] [place] [address] Dr. Noemy Aguilar AND TIBPending Sale To [facility] 04-18-2022% SATURATION7.8 %NormalThe [facility] HospitalComment on above:Performed By: #### HORTENSIA UMICRO #### [facility] [address] [place] [address] Dr. Noemy Aguilar [Mass/Vol]24.0 ug/dLCritically low50.0-170.0The [facility] HospitalComment on above:Performed By: #### HORTENSIA UMICRO #### [facility] [address] [place] [address] Dr. Noemy Patterson WVPQOS737.0 ug/lUVxndlb489.0-450.0The [facility] Comment on above:Performed By: #### HORTENSIA UMICRO #### [facility] [address] [place] [address] Dr. Noemy QuirosPOINT OF CARE GLUCOSEon [id number] [Mass/Vol]324 mg/dL Critically ocbw46-341Yef [facility] HospitalComment on above:Performed By: #### HORTENSIA UMICRO #### [facility] [address] [place] [address] Dr. Yilan ChangPROF 14(COMP METB)on [id number] [Mass/Vol]1.9 g/dL Critically low3.4-5.0The [facility] HospitalComment on above:Performed By: #### HORTENSIA UMJORGERO #### [facility] [address] [address] [address] Noemy QuirosAlbumin/Globulin [Mass ratio]0.4 {ratio}NormalThe [facility] HospitalComment on above:Performed By: #### HORTENSIA UMICRO #### [facility] [address] [place] [address] Dr. Noemy AngelP [Catalytic activity/Vol]54 U/OXkmwyp35-404Gle [facility] HospitalComment on above:Performed By: #### HORTENSIA UMICRO #### [facility] [address] [place] [address] Dr. Noemy AngelT [Catalytic activity/Vol]50 U/YGugcix65-50Zrg [facility] HospitalComment on above:Performed By: #### HORTENSIA UMICRO #### [facility] [address] [address] [address] Noemy Sanford gap [Moles/Vol]12.5 mmol/LNormalThe [facility] Comment on above:Performed By: #### HORTENSIA UMICRO #### [facility] [address] [place] [address] Dr. Noemy QuirosAST [Catalytic activity/Vol]23 U/CYdzdwr60-27Tbm [facility] HospitalComment on above:Performed By: #### HORTENSIA UMICRO #### [facility] [address] [place] [address] Dr. Noemy QuirosBilirubin [Mass/Vol]0.5 mg/dLNormal0.2-1.0The [facility] Comment on above:Performed By: #### HORTENSIA UMICRO #### [facility] [address] [place] [address] Dr. Noemy QuirosCalcium [Mass/Vol]7.9 mg/dLCritically low8.5-10.1The [facility] HospitalComment on above:Performed By: #### HORTENSIA UMICRO #### [facility] [address] [place] [address] Dr. Noemy QuirosChloride [Moles/Vol]105 mmol/QEqdrjf53-089Llx [facility] Comment on above:Performed By: #### HORTENSIA UMICRO #### [facility] [address] [place] [address] Dr. Noemy QuirosCO2 [Moles/Vol]21.8 mmol/FTcgqgm72.0-32.0The [facility] Comment on above:Performed By: #### HORTENSIA UMICRO #### [facility] [address] [place] [address] Dr. Noemy QuirosCreatinine [Mass/Vol]1.52 mg/dLCritically high0.55-1.02[facility] HospitalComment on above:Performed By: #### HORTENSIA UMICRO #### [facility] [address] [place] [address] Dr. Noemy CheneyGFR-AF PCTAJCAT06 mL/min/1.36f0Koxqhdtcdn low>=60The [facility] HospitalComment on above:Performed By: #### HORTENSIA UMICRO #### [facility] [address] [place] [address] Dr. Noemy Ayala-NON AF LERUZXTB42 mL/min/1.45t5Xaqjwjwksy low>=60The [facility] HospitalComment on above:Performed By: #### HORTENSIA UMICRO #### [facility] [address] [place] [address] Dr. Noemy QuirosGlobulin (S) [Mass/Vol]5.0 g/dLNormalThe [facility] HospitalComment on above:Performed By: #### HORTENSIA UMICRO #### [facility] [address] [place] [address] Dr. Noemy QuirosGlucose [Mass/Vol]240 mg/dLCritically wvuj29-664LofMccullough-Hyde Memorial HospitalComment on above:Performed By: #### HORTENSIA UMICRO #### [facility] [address] [place] [address] Dr. Noemy QuirosPotassium [Moles/Vol]4.3 mmol/LNormal3.5-5.1The [facility] Comment on above:Performed By: #### MELANI BAZANRO #### [facility] [address] [place] [address] Dr. Noemy QuirosProtein [Mass/Vol]6.9 g/dLNormal6.4-8.2The [facility] Comment on above:Performed By: #### HORTENSIA UMICRO #### [facility] [address] [place] [address] Dr. Noemy QuirosSodium [Moles/Vol]135 mmol/LCritically jkt253-707Ofv [facility] HospitalComment on above:Performed By: #### HORTENSIA UMICRO #### [facility] [address] [place] [address] Dr. Noemy QuirosUrea nitrogen [Mass/Vol]20.0 mg/dLCritically high7.0-18.0The [facility] HospitalComment on above:Performed By: #### HORTENSIA UMICRO #### [facility] [address] [place] [address] Dr. Noemy Stuart nitrogen/Creatinine [Mass ratio]13.2 mg/mgNormalThe [facility] HospitalComment on above:Performed By: #### HORTENSIA UMICRO #### [facility] [address] [place] [address] Dr. Noemy Felton B12 AND FOLATEon [id number] (Vitamin B12) [Mass/Vol] 637.0 pg/gFCkoygq190.0-986.0The [facility] HospitalComment on above:Performed By: #### HORTENSIA UMICRO #### [facility] [address] [place] [address] Dr. Noemy QuirosFOLATE17.30 ng/mLNormal8.60-58.90The [facility] HospitalComment on above:Performed By: #### HORTENSIA UMICRO #### [facility] [address] [place] [address] Dr. Noemy Johnson CULTURE ID PANELon 04-17-2022. baumanniiNot detectedNormal NOT DETECTEDThe [facility] HospitalComascension [facility] on above:Performed By: #### BCID2 #### [facility] [address] [place] [address] Dr. Noemy Shane fragilisNot detectedNormalNOT DETECTEDThe [facility] HospitalComascension [facility] on above:Performed By: #### BCID2 #### [facility] [address] [place] [address] Dr. Noemy Roberts CONTROLSPASSEDSt. Mary's Medical CenterComascension borg[facility] hospital on above: Performed By: #### BCID2 #### [facility] [address] [place] [address] Dr. Noemy RobertsBTHDCARLA CULTURE BOTTLE [facility] HospitalCom[facility] on above:Performed By: #### BCID2 #### [facility] [address] [place] [address] Dr. Noemy RobertsTgqdpKASTJC1PHKSUKLNTVGPD RESISTANCE GENESSt. Mary's Medical Center Comment on above:Performed By: #### BCID2 #### [facility] [address] [place] [address] Dr. Noemy RobertsHD2SEE [facility] HospitalComasc[facility] on above: Result Comment: Note: Antimicrobial resitance can occur via multiple mechanisms. A Not Detected result for the Film[employer] antomicrobial resistance gene assays does not indicate antimicrobial susceptibility. Subculturing is required for species identification and susceptibility testing of isolates.Performed By: #### BCID2 #### [facility] [address] [place] [address] Dr. Noemy RobertsZxxcyOIWPVK7FxevkwamDgxnaxUqg [facility] HospitalComment on above: Performed By: #### BCID2 #### [facility] [address] [place] [address] Dr. Noemy RobertsFipksYNZJSM9KdskpbbdOwjdjxPuw [facility] HospitalComment on above: Performed By: #### BCID2 #### [facility] [address] [place] [address] Dr. Noemy RobertsOuxbuFTLJBU2COSQWYyuksvSyjProMedica Toledo HospitalComment on above:Performed By: #### BCID2 #### [facility] [address] [address] [address] Noemy Davis Set:Set 1NormalThe [facility] HospitalComment on above: Performed By: #### BCID2 #### [facility] [address] [address] [address] Noemy Davis:AerobicNormMercy Hospital HospitalComment on above: Performed By: #### BCID2 #### [facility] [address] [address] [address] Noemy Gage. neoformans/gattiiNot detectedNormalNOT DETECTEDThe [facility] HospitalComment on above:Performed By: #### BCID2 #### [facility] [address] [address] [address] Noemy San albicansNot detectedNormalNOT DETECTEDThe [facility] HospitalComment on above:Performed By: #### BCID2 #### [facility] [address] [address] [address] Noemy San aurisNot detectedNormalNOT DETECTEDMccullough-Hyde Memorial Hospital Comment on above:Performed By: #### BCID2 #### [facility] [address] [address] [address] Noemy San glabrataNot detectedNormalNOT DETECTEDThe [facility] HospitalComascension [facility] on above:Performed By: #### BCID2 #### [facility] [address] [address] [address] Noemy Garciat detectedNormalNOT DETECTEDMccullough-Hyde Memorial Hospital Comment on above:Performed By: #### BCID2 #### [facility] [address] [address] [address] Noemy San ParapsilosisNot detectedNormalNOT DETECTEDThe [facility] HospitalComment on above:Performed By: #### BCID2 #### [facility] [address] [address] [address] Noemy San TropicalisNot detectedNormalNOT DETECTEDThe [facility] HospitalComment on above:Performed By: #### BCID2 #### [facility] [address] [address] [address] Noemy QuirosCTX-M Resistant GeneNot detectedNormalNOT DETECTEDThe [facility] HospitalComment on above:Performed By: #### BCID2 #### [facility] [address] [address] [address] Noemy Cheney. Cloacae complexNot detectedNormalNOT DETECTEDThe [facility] HospitalComment on above:Performed By: #### BCID2 #### [facility] [address] [address] [address] Noemy Cheney. faecalisNot detectedNormalNOT DETECTEDThe [facility] Comment on above:Performed By: #### BCID2 #### [facility] [address] [address] [address] Noemy Cheney. faeciumNot detectedNormalNOT DETECTEDThe [facility] Comment on above:Performed By: #### BCID2 #### [facility] [address] [address] [address] Noemy CheneynterobacteriaceaeDetectedCritically abnormalNOT DETECTEDThe [facility] HospitalComascension [facility] on above:Performed By: #### BCID2 #### [facility] [address] [address] [address] Noemy Robisoncherichia coliDetectedCritically abnormalNOT DETECTEDThe [facility] HospitalComascension [facility] on above:Performed By: #### BCID2 #### [facility] [address] [address] [address] Noemy Martin. influenzaeNot detectedNormalNOT DETECTEDThe [facility] Comment on above:Performed By: #### BCID2 #### [facility] [address] [address] [address] Noemy QuirosIMP Resistant GeneNot detectedNormalNOT DETECTEDThe [facility] HospitalComasc[facility] on above:Performed By: #### BCID2 #### [facility] [address] [address] [address] Noemy Iverson. oxytocaNot detectedNormalNOT DETECTEDThe [facility] Comment on above:Performed By: #### BCID2 #### [facility] [address] [address] [address] Noemy Iverson. pneumoniaeNot detectedNormalNOT DETECTEDThe [facility] Comment on above:Performed By: #### BCID2 #### [facility] [address] [address] [address] Noemy Appiahebsiella aerogenesNot detectedNormalNOT DETECTEDThe [facility] HospitalComment on above:Performed By: #### BCID2 #### [facility] [address] [place] [address] Dr. Noemy QuirosKPC Resistant GeneNot detectedNormalNOT DETECTEDThe [facility] HospitalComment on above:Performed By: #### BCID2 #### [facility] [address] [place] [address] Dr. Noemy Howell. monocytogenesNot detectedNormalNOT DETECTEDThe [facility] HospitalComment on above:Performed By: #### BCID2 #### [facility] [address] [place] [address] Dr. Noemy Limonr-1 Resistant GeneNot detectedNormalNOT DETECTEDThe [facility] HospitalComment on above:Performed By: #### BCID2 #### [facility] [address] [place] [address] Dr. Noemy Daily/CNot ApplicableNormalNOT DETECTEDMccullough-[facility] Hospital Comment on above:Performed By: #### BCID2 #### [facility] [address] [place] [address] Dr. Noemy Daily/C MREJNot ApplicableNormalNOT DETECTEDThe [facility] [facility] Comment on above:Performed By: #### BCID2 #### [facility] [address] [place] [address] Dr. Noemy Davenport. meningitidisNot detectedNormalNOT DETECTEDThe [facility] HospitalComasc[facility] on above:Performed By: #### BCID2 #### [facility] [address] [place] [address] Dr. Noemy Mcclure Resistant GeneNot detectedNormalNOT DETECTEDThe [facility] HospitalComment on above:Performed By: #### BCID2 #### [facility] [address] [address] [address] Noemy BelcherVflecVxk-63-cpqbUqq detectedNormalNOT DETECTEDThe [facility] Comment on above:Performed By: #### BCID2 #### [facility] [address] [address] [address] Noemy QuirosProteusNot detectedNormalNOT DETECTEDThe [facility] HospitalComment on above:Performed By: #### BCID2 #### [facility] [address] [address] [address] Noemy Fields. aeruginosaNot detectedNormalNOT DETECTEDThe [facility] HospitalComment on above:Performed By: #### BCID2 #### [facility] [address] [address] [address] Noemy Cheney. maltophiliaNot detectedNormalNOT DETECTEDM[facility] Comment on above:Performed By: #### BCID2 #### [facility] [address] [address] [address] Noemy QuirosSalmonellaNot detectedNormalNOT DETECTEDM[facility]ull[facility] Comment on above:Performed By: #### BCID2 #### [facility] [address] [address] [address] Noemy Rivera marcescensNot detectedNormalNOT DETECTEDThe [facility] HospitalComment on above:Performed By: #### BCID2 #### [facility] [address] [address] [address] Noemy Steiner:R ACNormalThe [facility] HospitalComment on above:Performed By: #### BCID2 #### [facility] [address] [address] [address] Noemy Greenfield. aureusNot detectedNormalNOT DETECTEDThe [facility] Comment on above:Performed By: #### BCID2 #### [facility] [address] [address] [address] Noemy Green[place]. epidermidisNot detectedNormalNOT DETECTEDThe [facility] HospitalComment on above:Performed By: #### BCID2 #### [facility] [address] [place] [address] Dr. Noemy Greenfield. lugdunensisNot detectedNormalNOT DETECTEDThe [facility] HospitalComment on above:Performed By: #### BCID2 #### [facility] [address] [place] [address] Dr. Noemy MatthewsaphylococcusNot detectedNormalNOT DETECTEDThe [facility] Comment on above:Performed By: #### BCID2 #### [facility] [address] [place] [address] Dr. Noemy Garcia. agalactiaeNot detectedNormalNOT DETECTEDThe [facility] HospitalComment on above:Performed By: #### BCID2 #### [facility] [address] [place] [address] Dr. Noemy Garcia. pneumoniaeNot detectedNormalNOT DETECTEDThe [facility]Com[facility] on above:Performed By: #### BCID2 #### [facility] [address] [place] [address] Dr. Noemy Garcia. pyogenesNot detectedNormalNOT DETECTEDThe [facility] HospitalComment on above:Performed By: #### BCID2 #### [facility] [address] [place] [address] Dr. Noemy GarciatococcusNot detectedNormalNOT DETECTEDThe [facility] Comment on above:Performed By: #### BCID2 #### [facility] [address] [place] [address] Dr. Noemy Henderson/Ryan Resist. GeneNot ApplicableNormalNOT DETECTEDThe [facility] HospitalComment on above:Performed By: #### BCID2 #### [facility] [address] [place] [address] Dr. Noemy Schneider Resistant GeneNot detectedNormalNOT DETECTEDThe [facility] HospitalComasc[facility] on above:Performed By: #### BCID2 #### [facility] [address] [place] [address] Dr. Noemy Wong AUTO DIFFon [id number] #0.0 103/ulNormal0.0-0.1The [facility] HospitalComment on above:Performed By: #### MELANI BAZANRO #### [facility] [address] [place] [address] Dr. Noemy QuirosBasophils/100 WBC (Bld)0.2 %Normal0.2-2.0[facility] Comment on above:Performed By: #### HORTENSIA UMJORGERO #### [facility] [address] [place] [address] Dr. Noemy Augustin #0.1 103/ulNormal0.0-0.7The [facility] HospitalComment on above: Performed By: #### HORTENSIA UMICRO #### [facility] [address] [place] [address] Dr. Noemy Cheneyosinophils/100 WBC (Bld)0.5 %Critically low0.9-7.0The [facility] HospitalComment on above:Performed By: #### MELANI BAZANRO #### [facility] [address] [place] [address] Dr. Noemy Ewingthrocyte distribution width (RBC) [Ratio]13.2 %Noodms36.0-15.[address] [facility] HospitalComment on above:Performed By: #### MELANI BAZANRO #### [facility] [address] [place] [address] Dr. Noemy QuirosHematocrit (Bld) [Volume fraction]29.0 %Critically low36.0-48.[address] [facility] HospitalComment on above:Performed By: #### MELANI BAZANRO #### [facility] [address] [place] [address] Dr. Noemy QuirosHemoglobin (Bld) [Mass/Vol]9.6 g/dLCritically low12.0-16.0The [facility] on above:Performed By: #### HORTENSIA UMICRO #### [facility] [address] [place] [address] Dr. Noemy Briceno #0.08 10e3/ulCritically high0.00-0.03The [facility] Comment on above:Performed By: #### HORTENSIA UMICRO #### [facility] [address] [address] [address] Noemy Briceno %0.7 %Critically high0.0-0.5The [facility] HospitalComment on above:Performed By: #### HORTENSIA UMICRO #### [facility] [address] [place] [address] Dr. Noemy Ayala #0.3 103/ulCritically low1.2-3.8The [facility] Comment on above:Performed By: #### HORTENSIA UMICRO #### [facility] [address] [place] [address] Dr. Noemy Pophocytes/100 WBC (Bld)2.9 %Critically low20.5-60.0The [facility] HospitalComment on above:Performed By: #### HORTENSIA UMICRO #### [facility] [address] [place] [address] Dr. Noemy LeonardUAL DIFF REQNONormalThe [facility] HospitalComment on above: Performed By: #### HORTENSIA UMICRO #### [facility] [address] [place] [address] Dr. Noemy Limon (RBC) [Entitic mass]32.9 rjLnbwct75.7-34.0The [facility] HospitalComment on above:Performed By: #### HORTENSIA UMICRO #### [facility] [address] [place] [address] Dr. Noemy Limon (RBC) [Mass/Vol]33.1 g/qJGrmqab66.9-35.2The [facility] HospitalComment on above:Performed By: #### HORTENSIA UMICRO #### [facility] [address] [place] [address] Dr. Noemy Limon (RBC) [Entitic vol]99.3 fLCritically high81.0-99.0The [facility] HospitalComment on above:Performed By: #### HORTENSIA UMICRO #### [facility] [address] [place] [address] Dr. Noemy Bear #0.8 103/ulNormal0.3-0.8The [facility] HospitalComment on above:Performed By: #### HORTENSIA UMICRO #### [facility] [address] [place] [address] Dr. Noemy Olivaresocytes/100 WBC (Bld)6.6 %Normal1.7-12.0[facility] Comment on above:Performed By: #### HORTENSIA UMICRO #### [facility] [address] [place] [address] Dr. Noemy Kohler #10.4 103/ulCritically high1.4-6.5The [facility] Comment on above:Performed By: #### HORTENSIA UMICRO #### [facility] [address] [place] [address] Dr. Noemy Lopezutrophils/100 WBC (Bld)89.1 %Critically high43.0-75.0The [facility] HospitalComment on above:Performed By: #### HORTENSIA UMICRO #### [facility] [address] [place] [address] Dr. Noemy Ashleylet mean volume (Bld) [Entitic vol]9.7 fLNormal9.5-13.5The [facility] HospitalComment on above:Performed By: #### HORTENSIA UMICRO #### [facility] [address] [place] [address] Dr. Noemy QuirosPLT191 103/vbMsvemz729-310Ais [facility] HospitalComment on above: Performed By: #### HORTENSIA UMICRO #### [facility] [address] [place] [address] Dr. Noemy QuirosRBC2.92 106/ulCritically low4.20-5.40The [facility] HospitalComment on above:Performed By: #### HORTENSIA UMICRO #### [facility] [address] [place] [address] Dr. Noemy QuirosWBC11.7 103/ulCritically high4.0-11.0The [facility] HospitalComment on above:Performed By: #### MELANI BAZANRO #### [facility] [address] [place] [address] Dr. Noemy Sanon BLOODon [id number] examination of blood, cultureCulture Observations: NO GROWTH AT [address] [facility] [facility] [address] [facility] HospitalComment on above:Performed By: #### BLDCX2 #### [facility] [address] [place] [address] Dr. Noemy QuirosPOINT OF CARE GLUCOSEon 04-02-9459Wppltqh [Mass/Vol]284 mg/dL Critically yebr15-426Vab [facility] HospitalComment on above:Performed By: #### LÁZARO BAZAN #### [facility] [address] [place] [address] Dr. Noemy QuirosGlucose [Mass/Vol]244 mg/dLCritically zxvv81-336Xwn [facility] HospitalComment on above:Performed By: #### LÁZARO BAZAN #### [facility] [address] [place] [address] Dr. Noemy QuirosPROF 14(COMP METB)on [id number] [Mass/Vol]2.2 g/dL Critically low3.4-5.0The [facility] HospitalComment on above:Performed By: #### CMP #### [facility] [address] [place] [address] Dr. Noemy QuirosAlbumin/Globulin [Mass ratio]0.4 {ratio}NormalThe [facility] HospitalComment on above:Performed By: #### CMP #### [facility] [address] [place] [address] Dr. Noemy AngelP [Catalytic activity/Vol]61 U/FPgnran53-215Nrb [facility] HospitalComment on above:Performed By: #### CMP #### [facility] [address] [place] [address] Dr. Noemy AngelT [Catalytic activity/Vol]75 U/LCritically jfxx16-67Rei [facility] HospitalComment on above:Performed By: #### CMP #### [facility] [address] [address] [address] Noemy QuirosAnion gap [Moles/Vol]13.6 mmol/LNormalM[facility] Comment on above:Performed By: #### CMP #### [facility] [address] [address] [address] Noemy QuirosAST [Catalytic activity/Vol]36 U/ZGbkytt26-83Fef [facility] HospitalComment on above:Performed By: #### CMP #### [facility] [address] [address] [address] Noemy QuirosBilirubin [Mass/Vol]0.8 mg/dLNormal0.2-1.0The [facility] Comment on above:Performed By: #### CMP #### [facility] [address] [address] [address] Noemy QuirosCalcium [Mass/Vol]8.3 mg/dLCritically low8.5-10.1The [facility] HospitalComment on above:Performed By: #### CMP #### [facility] [address] [address] [address] Noemy QuirosChloride [Moles/Vol]104 mmol/PKomvmx47-932Weg [facility] Comment on above:Performed By: #### CMP #### [facility] [address] [address] [address] Noemy QuirosCO2 [Moles/Vol]23.7 mmol/NEkhwkp45.0-32.0The [facility] Comment on above:Performed By: #### CMP #### [facility] [address] [address] [address] Noemy QuirosCreatinine [Mass/Vol]1.81 mg/dLCritically high0.55-1.02The [facility] HospitalComment on above:Performed By: #### CMP #### [facility] [address] [address] [address] Salguero ChangEGFR-AF OECWXYIR36 mL/min/1.38s2Eyuiozborl low>=60The [facility] HospitalComment on above:Performed By: #### CMP #### [facility] [address] [address] [address] Noemy CheneyGFR-NON AF TBXRCJNN61 mL/min/1.03u4Hqhkrciisy low>=60The [facility] HospitalComment on above:Performed By: #### CMP #### [facility] [address] [address] [address] Noemy QuirosGlobulin (S) [Mass/Vol]5.7 g/dLNoFayette County Memorial HospitalComment on above:Performed By: #### CMP #### [facility] [address] [address] [address] Noemy QuirosGlucose [Mass/Vol]169 mg/dLCritically ekhp85-535Ypo [facility] HospitalComment on above:Performed By: #### CMP #### [facility] [address] [address] [address] Noemy QuirosPotassium [Moles/Vol]4.3 mmol/LNormal3.5-5.1The [facility] Comment on above:Performed By: #### CMP #### [facility] [address] [address] [address] Noemy QuirosProtein [Mass/Vol]7.9 g/dLNormal6.4-8.2The [facility] Comment on above:Performed By: #### CMP #### [facility] [address] [address] [address] Noemy QuirosSodium [Moles/Vol]137 mmol/WNmyfqh478-038Iri [facility] Comment on above:Performed By: #### CMP #### [facility] [address] [address] [address] Noemy QuirosUrea nitrogen [Mass/Vol]20.0 mg/dLCritically high7.0-18.0The [facility] HospitalComment on above:Performed By: #### CMP #### [facility] [address] [address] [address] Noemy Stuart nitrogen/Creatinine [Mass ratio]11.0 mg/mgNoFayette County Memorial HospitalComment on above:Performed By: #### CMP #### [facility] [address] [place] [address] Dr. Noemy QuirosXR KUB 1 VIEWon [id number] KUB 1 VIEWEXAMINATION: XR KUB 1 VIEW HISTORY: CALCULUS OF KIDNEY ; right lower quadrant pain COMPARISON: CT abdomen pelvis 04/16/2022 FINDINGS: KIDNEY/URETER - RIGHT: No visible renal or ureteral calcifications. KIDNEY/URETER - LEFT: No visible renal or ureteral calcifications. PELVIS: No visible ureteral stones. BOWEL: No abnormal dilation or deviation. BONES: Levocurvature and multilevel degenerative disc disease of lumbar spine. OTHER: Negative. No abnormal gaseous collections. IMPRESSION: 1. No visible urinary tract calculi. Examination is slightly limited by patient body habitus and bowel content. Electronically authenticated by: DUSTIN FERRIS Date: 2022-04-17 08:[address] [place] [address] W MANUAL DIFFon [id number] LYMPH #NormalMccullough-Hyde Memorial HospitalComment on above:Performed By: #### MELANI BAZANRO #### [facility] [address] [place] [address] Dr. Noemy PatrickYPICAL LYMPH %NormalThe [facility] HospitalComment on above: Performed By: #### MELANI BAZANRO #### [facility] [address] [place] [address] Dr. Noemy Oneil #0.3 103/ulNormal0.0-0.3The [facility] HospitalComment on above:Performed By: #### MELANI BAZANRO #### [facility] [address] [place] [address] Dr. Noemy Oneil %3 %Normal0-5The [facility] HospitalComment on above:Performed By: #### HORTENSIA UMICRO #### [facility] [address] [place] [address] Dr. Noemy Herndon #0.00 103/ulNormal0.00-0.10The [facility] Hospitalment on above:Performed By: #### HORTENSIA UMICRO #### [facility] [address] [place] [address] Dr. Noemy Herndon %0.0 %Critically low0.2-2.0The [facility] HospitalComment on above:Performed By: #### HORTENSIA UMICRO #### [facility] [address] [place] [address] Dr. Noemy García #NormalThe [facility] HospitalComment on above:Performed By: #### HORTENSIA UMICRO #### [facility] [address] [address] [address] Noemy García %NormalThe [facility] HospitalComment on above:Performed By: #### HORTENSIA UMICRO #### [facility] [address] [address] [address] Noemy QuirosCORRECTED WBCNormal4.0-11.0The [facility] HospitalComment on above: Performed By: #### HORTENSIA UMICRO #### [facility] [address] [place] [address] Dr. Noemy Davidson #0.11 103/ulNormal0.00-0.70The [facility] HospitalComment on above:Performed By: #### HORTENSIA UMICRO #### [facility] [address] [address] [address] Noemy Davidson%1.0 %Normal0.9-7.0The [facility] HospitalComment on above: Performed By: #### HORTENSIA UMICRO #### [facility] [address] [place] [address] Dr. Noemy QuirosHCT35.4 %Critically low36.0-48.0The [facility] HospitalComment on above:Performed By: #### HORTENSIA UMICRO #### [facility] [address] [place] [address] Dr. Noemy QuirosHGB11.8 g/dlCritically low12.0-16.0The [facility] HospitalComment on above:Performed By: #### HORTENSIA UMICRO #### [facility] [address] [place] [address] Dr. Noemy Dean #0.76 103/ulCritically low1.20-3.80The [facility] Comment on above:Performed By: #### HORTENSIA UMICRO #### [facility] [address] [place] [address] Dr. Noemy Daen%7.0 %Critically low20.5-60.0The [facility] HospitalComment on above:Performed By: #### HORTENSIA UMICRO #### [facility] [address] [place] [address] Dr. Noemy LimonH33.0 ktVoimee86.7-34.0The [facility] HospitalComment on above: Performed By: #### HORTENSIA UMICRO #### [facility] [address] [place] [address] Dr. Noemy LimonHC33.3 g/bqKgciwr48.9-35.2The [facility] HospitalComment on above:Performed By: #### HORTENSIA UMICRO #### [facility] [address] [place] [address] Dr. Noemy LimonV98.9 yOXilnqo06.0-99.0The [facility] HospitalComment on above: Performed By: #### HORTENSIA UMICRO #### [facility] [address] [place] [address] Dr. Noemy LeeOCYTE #NormalThe [facility] HospitalComment on above: Performed By: #### HORTENSIA UMICRO #### [facility] [address] [place] [address] Dr. Noemy LeeOCYTE %NormalThe [facility] HospitalComment on above: Performed By: #### HORTENSIA UMICRO #### [facility] [address] [place] [address] Dr. Noemy Rapp#0.43 103/ulNormal0.30-0.80The [facility] HospitalComment on above:Performed By: #### HORTENSIA UMICRO #### [facility] [address] [place] [address] Dr. Noemy Rapp%4.0 %Normal1.7-12.0The [facility] HospitalComment on above: Performed By: #### HORTENSIA UMICRO #### [facility] [address] [address] [address] Noemy GallardoV9.6 fLNormal9.5-13.5The [facility] HospitalComment on above: Performed By: #### HORTENSIA UMICRO #### [facility] [address] [address] [address] Noemy DiazOCYTE #NormalThe [facility] HospitalComment on above:Performed By: #### HORTENSIA UMICRO #### [facility] [address] [place] [address] Dr. Noemy DiazOCYTE %NormalThe [facility] HospitalComment on above:Performed By: #### HORTENSIA UMICRO #### [facility] [address] [place] [address] Dr. Noemy QuirosNRBCNormalThe [facility] HospitalComment on above:Performed By: #### HORTENSIA UMICRO #### [facility] [address] [place] [address] Dr. Noemy SotoT199 103/jqCbjbcx502-406Zlb [facility] HospitalComment on above: Performed By: #### HORTENSIA UMICRO #### [facility] [address] [place] [address] Dr. Noemy QuirosRBC3.58 106/ulCritically low4.20-5.40The [facility] HospitalComment on above:Performed By: #### HORTENSIA UMICRO #### [facility] [address] [place] [address] Dr. Noemy QuirosRDW12.8 %Wrozzb80.0-15.0The [facility] HospitalComment on above: Performed By: #### HORTENSIA UMICRO #### [facility] [address] [place] [address] Dr. Noemy Garcia #9.18 103/ulCritically high1.40-6.50The [facility] Comment on above:Performed By: #### HORTENSIA UMICRO #### [facility] [address] [place], [place] [address] Dr. Noemy Garcia %85.0 %Critically high43.0-75.0The [facility] HospitalComment on above:Performed By: #### LÁZARO BAZAN #### [facility] [address] [place], [place] [address] Dr. Noemy QuirosWBC10.8 103/ulNormal4.0-11.0The [facility] HospitalComment on above:Performed By: #### LÁZARO BAZAN #### [facility] [address] [place], [place] [address] Dr. Noemy QuirosCT ABD/PELVIS WO CONon [id number] ABD/PELVIS WO CONEXAMINATION: CT ABD/PELVIS WO CON, 04/16/2022 10:48 AM EST HISTORY: CALCULUS OF KIDNEY COMPARISON: 2012 TECHNIQUE: CT scan of the abdomen and pelvis was performed without IV contrast. CT dose reduction technique was used, including Automated Exposure Control. FINDINGS: LUNG BASES: Dependent atelectasis. Cardiomegaly with mild coronary atherosclerosis LIVER: Mildly nodular liver contour with no focal mass BILIARY: Layering hyperdensity likely sludge without CT evidence of acute cholecystitis PANCREAS: No lesion, fluid collection, ductal dilatation, or atrophy. SPLEEN: No enlargement or focal lesion. ADRENALS: No mass or enlargement. KIDNEYS: Asymmetric enlargement of the right kidney with perinephric stranding. Moderate right hydroureteronephrosis extending to a 5 mm distal ureterolith, axial image 124. Normal left. BOWEL/MESENTERY: Nonobstructive bowel gas pattern. Colonic diverticulosis. Normal appendix AORTA/VASCULAR: No aneurysm or dissection. RETROPERITONEUM: No mass or adenopathy. LYMPH NODES: No adenopathy. URINARY BLADDER: No visible focal wall thickening, lesion, or calculus. PELVIC ORGANS: Hysterectomy. 6 cm rim calcified left adnexal cyst, axial image 117 ABDOMINAL WALL: No mass or hernia. BONES: Moderate degenerative changes OTHER: Cystic lesion in the right pelvis measuring 4.2 cm with peripheral calcification measuring 29 Hounsfield units centrally. There is surrounding soft tissue attenuation and stranding IMPRESSION: 5 mm distal right ureterolith with moderate associated obstructive uropathy Left lower lobe infiltrate, consider pneumonia Nodular liver suggesting cirrhosis Cystic and solid right pelvic mass. 6 cm rim calcified left adnexal cystic lesion Transabdominal and transvaginal pelvic ultrasound is recommended for further evaluation Electronically authenticated by: VERÓNICA KRUSE Date: 2022-04-16 11:29NoFayette County Memorial HospitalCovid-19 PCR (CVDTBH)on [id number]-CoV-2 (COVID-19) RNA OLYA+probe Ql (Unsp spec)Not detectedNormalNOT DETECTEDMccullough-Hyde Memorial Hospital Comment on above:Result Comment: When diagnostic testing is negative, the possibility of a false negative should be considered in the context of a patient's recent exposures and the presence of clinical signs and symptoms consistent with SARS-CoV-2. This test is not yet approved or cleared by the [place] FDA. When there are no FDA-approved or cleared tests available, and other criteria are met, FDA can make tests available under an emergency access mechanism called an Emergency Use Authorization (EUA). The EUA for this test is supported by the [place] of Health and Human Service's declaration that circumstances exist to justify the emergency use of in vitro diagnostics for the detection and/or diagnosis of the virus that causes COVID-19. This EUA will remain in effect for the duration of the COVID-19 declaration justifying emergency of IVDs, unless it is terminated or revoked by the FDA (after which the test may no longer be used).Performed By: #### CVDTBH #### [facility] [address] [place] [address] Dr. Noemy Cuellar URINE PROFILEon [id number] Ql (U)NegativeNormal NEGATIVEMccullough-Hyde Memorial HospitalComment on above:Performed By: #### MELANI BAZANRO #### [facility] [address] [place] [address] Dr. Noemy Rodriguez (U)SL CLOUDYAbnormalCLEARThGreen Cross HospitalComment on above:Performed By: #### MELANI BAZANRO #### [facility] [address] [place] [address] Dr. Noemy Salinas (U)YELLOWNormalYELLOWMccullough-Hyde Memorial HospitalComment on above: Performed By: #### MELANI BAZANRO #### [facility] [address] [address] [address] Noemy Holman micrscopic examination will be performed if indicated. NormalThe [facility] HospitalComment on above:Performed By: #### LÁZARO BAZAN #### [facility] [address] [address] [address] Noemy QuirosGlucose Ql (U)100 mg/dlAbnormalNEGATIVEMccullough-Hyde Memorial Hospital Comment on above:Performed By: #### LÁZARO BAZAN #### [facility] [address] [address] [address] Noemy QuirosHemoglobin Ql (U)LARGEAbnormalNEGOhio State East Hospital Comment on above:Performed By: #### LÁZARO BAZAN #### [facility] [address] [place] [address] Dr. Noemy QuirosKetones Ql (U)15 mg/dlAbrmalNEGOhio State East Hospital Comment on above:Performed By: #### LÁZARO BAZAN #### [facility] [address] [place] [address] Dr. Noemy QuirosLEUKOCYTESSMALLAbnormalNEGOhio State East HospitalComment on above:Performed By: #### LÁZARO BAZAN #### [facility] [address] [place] [address] Dr. Noemy QuirosNitrite Ql (U)PositiveAbnormalNEGOhio State East Hospital Comment on above:Performed By: #### LÁZARO BAZAN #### [facility] [address] [address] [address] Noemy QuirospH (U)5.0 [pH]Normal5-9M[facility]de Memorial HospitalComment on above: Performed By: #### LÁZARO BAZAN #### [facility] [address] [address] [address] Noemy QuirosSPEC GRAVITY1.120Dytdge2.005-<=1.025The [facility] HospitalComment on above:Performed By: #### LÁZARO BAZAN #### [facility] [address] [place] [address] Dr. Noemy Miller PROTEINTRACENormalNEGATIVE/ TRACEThe [facility] HospitalComment on above:Performed By: #### LÁZARO BAZAN #### [facility] [address] [place] [address] Dr. Noemy Perez MICRO INDINDICATEDNormalThe [facility] HospitalComment on above: Performed By: #### LÁZARO BAZAN #### [facility] [address] [place] [address] Dr. Noemy Kendallbilinogen Qn (U)1.0 {Deangelo'U}/dLNormal0.2 - 1.0The [facility] on above:Performed By: #### LÁZARO BAZAN #### [facility] [address] [place] [address] Dr. Noemy QuirosPOINT OF CARE GLUCOSEon [id number] [Mass/Vol]226 mg/dL Critically kyqr29-308Opu [facility] on above:Performed By: #### POCGLUC #### [facility] [address] [place] [address] Dr. Noemy QuriosPROF 14(COMP METB)on [id number] [Mass/Vol]2.7 g/dL Critically low3.4-5.0The [facility] HospitalComascension borgess allegan hospital on above:Performed By: #### CMP #### [facility] [address] [place] [address] Dr. Noemy QuirosAlbumin/Globulin [Mass ratio]0.4 {ratio}NormalThe [facility] HospitalComascension borgess allegan hospital on above:Performed By: #### CMP #### [facility] [address] [place] [address] Dr. Noemy Llanos [Catalytic activity/Vol]83 U/MFfufee96-452Sqv [facility] on above:Performed By: #### CMP #### [facility] [address] [place] [address] Dr. Noemy Silvestre [Catalytic activity/Vol]96 U/LCritically ywro76-41Cit Hi HospitalComment on above:Performed By: #### CMP #### [facility] [address] [address] [address] Noemy Sanford gap [Moles/Vol]16.3 mmol/LNormalThe [facility] Comment on above:Performed By: #### CMP #### [facility] [address] [address] [address] Noemy QuirosAST [Catalytic activity/Vol]54 U/LCritically peir57-37Pxj [facility] HospitalComment on above:Performed By: #### CMP #### [facility] [address] [address] [address] Noemy QuirosBilirubin [Mass/Vol]0.9 mg/dLNormal0.2-1.0The [facility] Comment on above:Performed By: #### CMP #### [facility] [address] [address] [address] Noemy QuirosCalcium [Mass/Vol]9.2 mg/dLNormal8.5-10.1[facility] Comment on above:Performed By: #### CMP #### [facility] [address] [address] [address] Noemy QuirosChloride [Moles/Vol]102 mmol/SJuwowt45-702Mpc [facility] Comment on above:Performed By: #### CMP #### [facility] [address] [address] [address] Noemy QuirosCO2 [Moles/Vol]19.6 mmol/LCritically low21.0-32.0The [facility] HospitalComment on above:Performed By: #### CMP #### [facility] [address] [address] [address] Noemy QuirosCreatinine [Mass/Vol]1.52 mg/dLCritically high0.55-1.02The [facility] HospitalComment on above:Performed By: #### CMP #### [facility] [address] [address] [address] Salguero ChangEGFR-AF KHFLOKSI70 mL/min/1.41h1Sdsmlebqsj low>=60The [facility] HospitalComment on above:Performed By: #### CMP #### [facility] [address] [address] [address] Noemy CheneyGFR-NON AF CPWNREZO40 mL/min/1.56q9Whzdsgihtw low>=60The [facility] HospitalComment on above:Performed By: #### CMP #### [facility] [address] [address] [address] Noemy QuirosGlobulin (S) [Mass/Vol]6.1 g/dLNormThe [facility]vue HospitalComment on above:Performed By: #### CMP #### [facility] [address] [address] [address] Noemy QuirosGlucose [Mass/Vol]196 mg/dLCritically sinq45-371Rgq [facility] HospitalComment on above:Performed By: #### CMP #### [facility] [address] [address] [address] Noemy QuirosPotassium [Moles/Vol]3.9 mmol/LNormal3.5-5.1The [facility] Comment on above:Performed By: #### CMP #### [facility] [address] [address] [address] Noemy QuirosProtein [Mass/Vol]8.8 g/dLCritically high6.4-8.2The [facility] HospitalComment on above:Performed By: #### CMP #### [facility] [address] [address] [address] Noemy QuirosSodium [Moles/Vol]134 mmol/LCritically ski516-077Luc [facility] Mercy Hospitalment on above:Performed By: #### CMP #### [facility] [address] [address] [address] Noemy QuirosUrea nitrogen [Mass/Vol]18.0 mg/dLNormal7.0-18.0The [facility] HospitalComment on above:Performed By: #### CMP #### [facility] [address] [address] [address] Noemy QuirosUrea nitrogen/Creatinine [Mass ratio]11.8 mg/mgNormAshtabula County Medical Centere Hi HospitalComment on above:Performed By: #### CMP #### [facility] [address] [address] [address] Noemy Haas MICROSCOPIC ONLYon [id number]XSHY SEENMccullough-Hyde Memorial HospitalComascension borg[facility] allegan hospital on above:Performed By: #### SOTOR, UMICRO #### [facility] [address] [address] [address] Noemy Mendez identified Cx Nom (U)INDICATEDNormalThGreen Cross HospitalComment on above:Performed By: #### SOTOR, UMICRO #### [facility] [address] [address] [address] Noemy Dupree SEENNormalNONE SEENMedina Hospital on above:Performed By: #### HORTENSIA, UMICRO #### [facility] [address] [address] [address] Noemy Stuartystals LM Nom (Urine sed)NONE SEENNormalNONE SEENMedina Hospital on above:Performed By: #### HORTENSIA, UMICRO #### [facility] [address] [address] [address] Salguero ChangEpithelial cells LM Ql (Urine sed)RARENormalNONE SEEN /RAREMedina Hospital on above:Performed By: #### HORTENSIA, UMICRO #### [facility] [address] [address] [address] Noemy McclellanNONE SEENNormalNONE SEENMedina Hospital on above:Performed By: #### HORTENSIA, UMICRO #### [facility] [address] [address] [address] Noemy GrahamYofdhXYB31-43Kkxjnwqc6-2TvrMedina Hospital on above: Performed By: #### ERUR, UMICRO #### [facility] [address] [address] [address] Noemy QuirosAjzdwTWW39-76CnrgpnrmXYTE SEENMedina Hospital on above: Performed By: #### ERURLÁZARO #### [facility] [address] [address] [address] Noemy James Sean [id number] POSTHNO ID: [id number] Author: Ricky Phillips MD Service: Anesthesiology Author Type: Anesthesiologist Type: Anesthesia PostOp Filed: 07/10/2021 2:36 PM Note Text: POST ANESTHESIA EVALUATION NOTE SERVICE DATE: 07/10/2021 SERVICE TIME: 14:00 : 1955 Vitals: There were no vitals filed for this visit. 07/10/21 1124 07/10/21 1307 07/10/21 1312 07/10/21 1317 BP: 155/95 118/73 141/68 129/63 07/10/21 1124 07/10/21 1307 07/10/21 1312 07/10/21 1317 Pulse: 65 64 68 64 07/10/21 1124 07/10/21 1307 07/10/21 1312 07/10/21 1317 Resp: 18 20 18 18 07/10/21 1124 07/10/21 1307 07/10/21 1312 07/10/21 1317 SpO2: 97% 94% 94% 95% Validated Vital Signs: Yes POST ANES STATUS: No apparent anesthetic complications. The patient is appropriately hydrated with stable respiratory and cardiovascular status. Patient has safe and adequate airway control. The patient has appropriate pain relief and no significant post operative nausea or vomiting. The patient has achieved baseline mental status. Intra-Operative Events: No Significant Anesthesia Events Further assessment by Anesthesia Service: None Other Remarks: SIGNATURE: Ricky Phillips MD PATIENT NAME: Julita Silva DATE: July 10, 2021 TIME: 2:36 PM PAGER/CONTACT #: [id number] Memorial HospitalOPERATIVE NO on [id number] NOHNO ID: [id number] Author: Sage Diaz MD Service: Ophthalmology Author Type: Physician Type: Operative Report Filed: 07/10/2021 1:02 PM Note Text: Log ID: [id number] NAME: Julita Silva SURGERY START TIME: 12:31 PM SURGERY END TIME: 1:00 PM SURGERY/PROCEDURE DATE: 07/10/2021 SURGEON(S)/PSYCHIATRIC CLINICIAN(S): Surgeon(s) and Role: * Sage Diaz MD - Primary * Adonis Ahn MD - Resident - Assisting IMPLANTS: Implant Name Type Inv. Item Serial No. Care Administrative Tech Lot No. LRB Model Num No. Used LENS ACRYSOF STABLEFORCE 6MM 0 D +13.5 DIOPTER BICONVEX 118.4 A-CONSTANT - [id number] Intraocular Lens LENS ACRYSOF STABLEFORCE 6MM 0 D +13.5 DIOPTER BICONVEX 118.4 A-CONSTANT [id number] [facility] Right SA60AT 13.5 1 PROCEDURE: Cataract Extraction by Phacoemulsification with Posterior Chamber Intraocular Lens Implantation of the right eye requiring the use of trypan blue dye owing to poor red reflex. DIAGNOSIS: Age-related, mature cataract, right eye. ANESTHESIA: Retrobulbar solution with 0.75% marcaine, 2% lidocaine with hyaluronidase right eye. COMPLICATIONS: None ESTIMATED BLOOD LOSS: Less than 1cc SPECIMENS: None DESCRIPTION OF PROCEDURE: Prior to the surgery, the benefits and risks of the surgery were discussed at length, including the potential risk of post-operative pain, decreased vision, corneal edema, glaucoma, infection, need for glasses, and/or need for further surgery. Signed informed consent was obtained at this time. Retrobulbar anesthesia was then administered to the operative eye with the staff anesthesiologist. The patient was transferred to the operating suite and laid supine on the operating room table. The patient was then prepped and draped in sterile fashion for ophthalmic surgery of the right eye. A lid speculum was placed in the operated eye. A paracentesis was created 45-degrees away (clock-sanon) from the planned main incision site using a supersharp blade and 0.12 forceps. Supplemental intracameral lidocaine (1%, non-preserved) was injected into the anterior chamber for local anesthesia. Air followed by trypan blue was injected into the anterior chamber to stain the anterior capsule, owing the poor red reflex caused by the mature cataract. Viscoeslastic was then injected into the anterior chamber to deepen it. A three-stage temporal clear corneal incision was then created using a 2.4mm keratome. The anterior capsulotomy was then performed. A cystitome was used to create a tear in the anterior capsule of the crystalline lens. The Utrada forceps were then used to manipulate this tear into a continuous curvilinear capsulorrhexis. Once this was completed, hydrodissection was performed using balanced salt solution on a canula. A posterior fluid wave was noted during hydrodissection. Adequate rotation of the lens nucleus was confirmed prior to proceeding. Phacoemulsification of the lens nucleus was then begun. The phaco machine was set on sculpt mode and inserted into the eye. The lens nucleus was grooved and rotated in a cross-sanon fashion. Once grooving was completed, the nucleus was split into quadrants using a bimanual technique. The phaco machine was then set on quadrant removal mode. The phaco tip was used to engage each nuclear quadrant, bring it to the pupillary center, and phacoemulsify it. Residual epi-nuclear material was removed from the capsular bag using epinucleus mode. Next, the irrigation and aspiration handpiece was connected, set on cortex mode, and inserted into the eye. The IA handpiece was used to remove residual cortical material from the capsular bag. The machine was then set on sao tomean mode and the IA handpiece was used to gently remove cortical debris from the posterior capsule. Viscoelastic was then injected into the capsular bag to deepen it. The IOL injector was then prepared. The IOL injector was inserted into the eye and the IOL was injected into the capsular bag. A Sinsky hook was used to rotate and position the IOL such that both haptics were confirmed to be in the capsular bag. The IA handpiece was re-inserted into the eye and used to remove residual viscoelastic material. The chamber was reformed with balanced salt solution. 0.1 mL of intracameral cefuroxime 1mg/0.1mL was injected into the anterior chamber. The wounds were carefully checked with a Weck-Leora spear and found to be watertight. Topical maxitrol ointment was instilled into the operated eye and the eye was patched and shielded. The patient was transferred to the recovery room in stable condition. The patient has an appointment to follow-up at the [facility] tomorrow. I/primary surgeon/proceduralist performed the procedure with assistance. Signed, Sage Diaz MDNormChildren's Hospital of ColumbusCNOVrobby [id number] Visit (IMOPMN) JULITA SILVA ([id number]) 1955 F Date Time Provider Department 06/21/21 11:00 AM [facility] During your visit today, we recorded the following information about you: Pulse Respiration Blood pressure Weight 64/minute 18/minute 143/82 136.9 kg Height 1.575 m Juwan Childress Ma 06/21/2021 11:15 AM Signed Consulted by: Dr. Diaz Type of Surgery: Phaco/IOL OD Patient scheduled for surgery on: 07/10/21 Are you experiencing any eye pain?no Do you have a history of sleep apnea?no Do you Have a pacemaker or an ICD?no Do you or any of your family members have a history of malignant hyperthermia?no Are you an Insulin dependent Diabetic?no HCG needed?n/a Reviewed pre-admission/surgery instructions with the patient. Questions and concerns answered and any further concerns to be discussed by provider. Juwan Parker PA-C 06/21/2021 12:36 PM Signed HISTORY AND PHYSICAL EXAMINATION (IMPACT) SERVICE DATE: 06/21/2021 SERVICE TIME: 11:18 AM PRIMARY CARE PHYSICIAN: No primary care provider on file. CHIEF COMPLAINT/HISTORY OF PRESENT ILLNESS: Ms. Silva is a 65 year old female referred to me for preoperative evaluation. My final recommendations will be communicated back to the requesting physician/surgeon by the way of the shared medical record. Referring Surgeon: Dr. Sage Diaz Date of Surgery: 07/10/2021 Planned Surgery/Procedure: Phacoemulsification Cataract Implant Intraocular Lens without endoscopic cyclophotocoagulation right eye Indication for Planned Surgery / Procedure: Cataract right eye MAC - Jose Refer to Assessment section for details of any comorbidities. Patient is Able to Perform the Following Physical Activity: Walk indoors, such as around the house (1.75 METs) Do light work around the house, such as dusting or washing dishes (2.70 METs) Take care of self; that is eating, dressing, bathing, using the toilet (2.75 METs) Do moderate work around the house such as vacuuming, sweeping floors, or carrying in groceries (3.50 METs) Partially dependent Goes camping in the summer months. Patient's functional class is III based on self-reported physical activity. Significant Anesthesia Considerations: Postop nausea/vomiting. PAST MEDICAL/SURGICAL/FAMILY/SOCIAL HISTORY PAST MEDICAL HISTORY Diagnosis Date - Schulz's palsy - Diabetes (HCC) - Hypertension - Obesity - Ovarian cancer (HCC) 2016 PAST SURGICAL HISTORY Procedure Laterality Date - DILATION AND CURETTAGE - TUBAL LIGATION HX FAMILY HISTORY Problem Relation Age of Onset - Breast Cancer Maternal Grandmother - Hypertension Mother - Cataract Mother - Cataract Father - No Ocular Disease No Family History SOCIAL HISTORY Social History Tobacco Use - Smoking status: Never Smoker - Smokeless tobacco: Never Used Substance Use Topics - Alcohol use: Yes Comment: rare - Drug use: No MEDICATIONS/ALLERGIES Current Outpatient Medications Medication Sig Dispense Refill - metFORMIN (GLUCOPHAGE) 500 mg tablet Take 500 mg by mouth twice daily with meals. - glimepiride (AMARYL) 2 mg tablet - lisinopril (ZESTRIL, PRINIVIL) 40 mg tablet Take 40 mg by mouth. - megestrol (MEGACE) 40 mg tablet Take 80 mg by mouth. Every other 3 weeks - oxybutynin (DITROPAN) 5 mg tablet - tamoxifen (NOLVADEX) 20 mg tablet Take 20 mg by mouth. Opposite three weeks of Megestrol - naproxen sodium (ALEVE) 220 mg cap Take 220 mg by mouth as needed. - metoprolol succinate ER (TOPROL XL) 25 mg 24 hr tablet Take 25 mg by mouth twice daily. 2 pills in the morning and 1 pill in the evening - MULTI-VITAMIN ORAL Take 1 tablet by mouth once daily. No current facility-administered medications for this visit. ALLERGIES Allergen Reactions - Eggs [Egg] Unknown - Sulfa (Sulfonamide * Unknown, Hives REVIEW OF SYSTEMS General: No weight loss, malaise or fevers. Neuro: No history of TIA's, stroke, WARP KNITTER tumor, impaired sensorium, hemiplegia, paraplegia or quadriplegia. No neurological symptoms or problems. Respiratory: No history of current cough or dyspnea, or pneumonia in the past 6 weeks. No history of respiratory/pulmonary symptoms or problems., Sleep apnea suspect. Denies orthopnea. Cardiovascular: Hypertension requiring meds, Denies chest pain. GI: No history of GI symptoms or problems. No history of esophageal varices, recent ascites, or ETOH greater than 2 drinks per day. : No history of UTI in past 6 weeks. No history of renal failure. Not currently on or requiring dialysis. No history of symptoms or problems. LIBRARY SERVICES DEAN: No vaginal bleeding due to menopause and no abnormal vaginal discharge. Endocrine: Diabetes Mellitus on oral agent, Denies hypothyroidism. Hematology: No history of bleeding or clotting disorder. No history of hematological symptoms or problems. (more content not included)...NormalLutheran HospitalTORY PHYSICALon [id number] PHYSICALHNO ID: [id number] Author: Vira Guy PA-C Service: ? Author Type: Physician Peripheral Edp Equipment Operator Type: HANDP Filed: 06/21/2021 12:36 PM Note Text: HISTORY AND PHYSICAL EXAMINATION (IMPACT) SERVICE DATE: 06/21/2021 SERVICE TIME: 11:18 AM PRIMARY CARE PHYSICIAN: No primary care provider on file. CHIEF COMPLAINT/HISTORY OF PRESENT ILLNESS: Ms. Silva is a 65 year old female referred to me for preoperative evaluation. My final recommendations will be communicated back to the requesting physician/surgeon by the way of the shared medical record. Referring Surgeon: Dr. Sage Diaz Date of Surgery: 07/10/2021 Planned Surgery/Procedure: Phacoemulsification Cataract Implant Intraocular Lens without endoscopic cyclophotocoagulation right eye Indication for Planned Surgery / Procedure: Cataract right eye MAC - Jose Refer to Assessment section for details of any comorbidities. Patient is Able to Perform the Following Physical Activity: Walk indoors, such as around the house (1.75 METs) Do light work around the house, such as dusting or washing dishes (2.70 METs) Take care of self; that is eating, dressing, bathing, using the toilet (2.75 METs) Do moderate work around the house such as vacuuming, sweeping floors, or carrying in groceries (3.50 METs) Partially dependent Goes camping in the summer months. Patient's functional class is III based on self-reported physical activity. Significant Anesthesia Considerations: Postop nausea/vomiting. PAST MEDICAL/SURGICAL/FAMILY/SOCIAL HISTORY PAST MEDICAL HISTORY Diagnosis Date - Schulz's palsy - Diabetes (HCC) - Hypertension - Obesity - Ovarian cancer (HCC) 2017 PAST SURGICAL HISTORY Procedure Laterality Date - DILATION AND CURETTAGE - TUBAL LIGATION HX FAMILY HISTORY Problem Relation Age of Onset - Breast Cancer Maternal Grandmother - Hypertension Mother - Cataract Mother - Cataract Father - No Ocular Disease No Family History SOCIAL HISTORY Social History Tobacco Use - Smoking status: Never Smoker - Smokeless tobacco: Never Used Substance Use Topics - Alcohol use: Yes Comment: rare - Drug use: No MEDICATIONS/ALLERGIES Current Outpatient Medications Medication Sig Dispense Refill - metFORMIN (GLUCOPHAGE) 500 mg tablet Take 500 mg by mouth twice daily with meals. - glimepiride (AMARYL) 2 mg tablet - lisinopril (ZESTRIL, PRINIVIL) 40 mg tablet Take 40 mg by mouth. - megestrol (MEGACE) 40 mg tablet Take 80 mg by mouth. Every other 3 weeks - oxybutynin (DITROPAN) 5 mg tablet - tamoxifen (NOLVADEX) 20 mg tablet Take 20 mg by mouth. Opposite three weeks of Megestrol - naproxen sodium (ALEVE) 220 mg cap Take 220 mg by mouth as needed. - metoprolol succinate ER (TOPROL XL) 25 mg 24 hr tablet Take 25 mg by mouth twice daily. 2 pills in the morning and 1 pill in the evening - MULTI-VITAMIN ORAL Take 1 tablet by mouth once daily. No current facility-administered medications for this visit. ALLERGIES Allergen Reactions - Eggs [Egg] Unknown - Sulfa (Sulfonamide * Unknown, Hives REVIEW OF SYSTEMS General: No weight loss, malaise or fevers. Neuro: No history of TIA's, stroke, WARP KNITTER tumor, impaired sensorium, hemiplegia, paraplegia or quadriplegia. No neurological symptoms or problems. Respiratory: No history of current cough or dyspnea, or pneumonia in the past 6 weeks. No history of respiratory/pulmonary symptoms or problems., Sleep apnea suspect. Denies orthopnea. Cardiovascular: Hypertension requiring meds, Denies chest pain. GI: No history of GI symptoms or problems. No history of esophageal varices, recent ascites, or ETOH greater than 2 drinks per day. : No history of UTI in past 6 weeks. No history of renal failure. Not currently on or requiring dialysis. No history of symptoms or problems. LIBRARY SERVICES DEAN: No vaginal bleeding due to menopause and no abnormal vaginal discharge. Endocrine: Diabetes Mellitus on oral agent, Denies hypothyroidism. Hematology: No history of bleeding or clotting disorder. No history of hematological symptoms or problems. Oncology: No history of CA metastasis, chemo within 30 days, or radiotherapy within 90 days. No history of oncological symptoms or problems., s/p endometerial cancer with XRT. Denies chemo. Psych: No history of psychiatric symptoms or problems. Skin: Negative for lesions, rash, and itching. PHYSICAL EXAM VITALS: BP 143/82 Pulse 64 Resp 18 Ht 5' 2 (1.58m) Wt 301 lb 14.4 oz (136.9kg) SpO2 98% BMI 55.20 kg/(m2). General: Alert and oriented, No acute distress, Obese Skin: Normal color, no rash, no lesions. HEENT: EOM, pupils equal, round and reactive., No carotid bruits Cardiovascular: Normal S1 AND S2, no rubs, murmurs or gallops. No JVD. Pulse regular. Lungs: Normal breath sounds, no wheezes or crackles., No chest deformities or chest wall tenderness. Abdomen: Soft, non-tender, no rigidity., No masses or organomegal (more content not included)...[facility]Day[facility] [id number] Patient:Julita Silva MRN: Height:5' 2 (1.575 m) Weight:301 lb 14.4 oz (136.941 kg) Outpatient Medications as of 07/10/21: metFORMIN (GLUCOPHAGE) 500 mg tablet glimepiride (AMARYL) 2 mg tablet lisinopril (ZESTRIL, PRINIVIL) 40 mg tablet megestrol (MEGACE) 40 mg tablet oxybutynin (DITROPAN) 5 mg tablet tamoxifen (NOLVADEX) 20 mg tablet naproxen sodium (ALEVE) 220 mg cap metoprolol succinate ER (TOPROL XL) 25 mg 24 hr tablet MULTI-VITAMIN ORAL Admission/Clinic Administered Medications as of 07/10/21: lactated ringers iv infusion Problem List: Endometrial ca (HCC) [C54.1] Bilateral edema of lower extremity [R60.0] HTN (hypertension) [I10] Morbid obesity (HCC) [E66.01] History of endometrial cancer [Z85.42] Controlled type 2 diabetes mellitus without complication, without long-term current use of insulin (HCC) [E11.9] Allergies: Eggs [Egg] Sulfa (Sulfonamide Antibiotics) Date Verified: 07/10/21 Lab Values No results within the last 30 days for the following basenames: K,HCT No progress notes entered within the past 30 daysNoPremier Health Miami [facility] Hospitalon 07-79-9411HATHLkrrxjacy (OPHTMN) JULITA SILVA ([id number]) 1955 F Date Time Provider Department 03/23/21 SAGE DIAZ During your visit today, we recorded the following information about you: BreonnaAgustinaJessica Yoliequiana 03/23/2021 1:30 PM Signed LV: 03/23/21 FV: None Status of communications with Dr. Judd's office regarding surgery. Relayed that letter was sent. Please advise. Sage Diaz MD filed at 03/23/2021 ?8:05 AM Status: Signed Encounter Diagnosis ? ? ICD-10-CM ? 1. Total, mature senile cataract H25.89 BSCAN OD (RIGHT EYE) 2. 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 ? PACHYMETRY OU (BOTH EYES) 3. Pseudophakia Z96.1 ? 4. Age-related nuclear cataract of right eye H25.11 ? 5. 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 7. 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 8. Dermatochalasis of both upper eyelids H02.831 ? ? H02.834 ? 9. Other vitreous opacities, right eye H43.391 BSCAN OD (RIGHT EYE) 10. Hx of LASIK Z98.890 ? s/p LASIK 2005 in both eyes - per patient had immediate problems OD, per treating doctor 1 in 500,000 complication, nothing could be done - appearance is suggestive of temporal flap melt (thinning with scarring following temporal flap margin) rather than post-lasik ectasia - +irreuglar astigmatism, not interested in any contact lens ooptions + nasal symblepharon OD - unclear significance but raises concern about wound healing with any PKP procedure ? s/p PCIOL OS, excellent outcome (Dr. Judd)- Mild PCO ? +mature cataract OD - good dilation, Bscan normal, need trypan blue, inf-temporal wound with limbal or anterior scleral tunnel approach to avoid mid-peripheral thinning - discussed that cataract surgery would improve vision but still remain limited due to corneal shape + floppy eyelids, dermatochalasis ou ? long discussion re: options-- favor ce/iol alone as PKP would be high risk, concern for wound healing issues, would need eccentric/large graft temporally to encompass area of thinning ? offer complex ce/iol OD (complicating factors mature lens, poor red reflex, cornea thinning) ? patient prefers to have cataract done locally if possible, discussed that Dr. Judd may prefer done here based on cornea ? letter to Dr. Judd -- can treat cataract locally (mature lens with corneal thinning) ? if Dr. Judd prefers, can perform ce/iol with me ? I have confirmed and edited as necessary the relevant ophthalmic history, ROS, and the neuro exam findings as obtained by others. I have seen and examined this patient. I have discussed the case and the management of this patient's care with the Resident/Fellow, if applicable. I also have reviewed and agree with the assessment and plan as stated above and agree with all of its relevant components. ? ? Sage Diaz MD ? Sage Diaz MD 03/23/2021 5:03 PM Signed Thank you -- I would suggest that she reach out to Dr. Judd early next week (to give him time to make sure he has received and read my letter) and she can see if he is comfortable doing her surgery. Reyna Barkley [facility] 03/24/2021 9:56 AM Signed Spoke to patient, she wants to know IF Dr. Judd doesn't feel comfortable doing the surgery, if she has to come here to have it done what are the post op days would she need to come back for? next day? how often would she have to come back and forth? Please advise [phone] (home) JENNY Thakur 03/24/2021 10:27 AM Signed Pt called; Dr. Judd isn't comfortable doing surgery and patient would like to schedule with Dr. Diaz. [phone] Reyna Barkley [facility] 03/24/2021 11:31 AM Signed MD Bob Caro PA-C 3 minutes ago (11:25 AM) Yonatan, can you assist with scheduling? ?Thanks Allergies As of Date: 03/23/2021 Noted Allergy Reaction EGGS (EGG) 11/22/2014 16 - Unknown SULFA (SULFONAMIDE ANTIBIOTICS) 11/22/2014 16 - Unknown Date Reviewed: 03/21/2021 Reviewed by: Waqas Swift MD - Fully Assessed Reason for Visit: Patient Question [7724] Prescriptions as of 03/24/2021 - glimepiride (AMARYL) 2 mg tablet - lisinopril (ZESTRIL, PRINIVIL) 40 mg tablet Take 40 mg by mouth. - megestrol (MEGACE) 40 mg tablet Take 80 mg by mouth. Every other 3 weeks - oxybutynin (DITROPAN) 5 mg tablet - tamoxifen (NOLVADEX) 20 mg tablet Take 20 mg by mouth. Opposite three weeks of Megestrol - naproxen sodium (ALEVE) 220 mg cap Take 220 mg by mouth as needed. - metoprolol succinate ER (TOPROL XL) 25 mg 24 hr tablet Take 25 mg by mouth twice daily. - MULTI-VITAMIN ORAL Take 1 tablet by mouth once daily. - Peralta-3 Fatty Acids-Vitamin E (FISH OIL) 1,000 mg cap Take 1 capsule by mouth once daily. - cholecalciferol (VITAMI (more content not included)...NormalBethesda North Hospitalon 88-21-5625EXSDWjjpgyhqs (OPHTMN) JULITA SILVA ([id number]) 1955 F Date Time Provider Department 03/07/21 SAGE DIAZ During your visit today, we recorded the following information about you: Queenie Carrington 03/07/2021 11:31 AM Signed Received outside records from [facility], gave to Dr. Diaz for review. Allergies As of Date: 03/07/2021 Noted Allergy Reaction EGGS (EGG) 11/22/2014 16 - Unknown SULFA (SULFONAMIDE ANTIBIOTICS) 11/22/2014 16 - Unknown Date Reviewed: 11/23/2014 Reviewed by: Jet Estrada - Fully Assessed Reason for Visit: Received Outside Medical Records [3576] Prescriptions as of 03/15/2021 - naproxen sodium (ALEVE) 220 mg cap Take 220 mg by mouth as needed. - metoprolol succinate ER (TOPROL XL) 25 mg 24 hr tablet Take 25 mg by mouth twice daily. - MULTI-VITAMIN ORAL Take 1 tablet by mouth once daily. - Peralta-3 Fatty Acids-Vitamin E (FISH OIL) 1,000 mg cap Take 1 capsule by mouth once daily. - cholecalciferol (VITAMIN D) 1,000 unit tab Take 1,000 Units by mouth once daily. Problem List As Of Date 03/07/2021 Noted Resolved Endometrial ca (HCC) [C54.1] 11/22/2014 Encounter Status:Closed by QUEENIE CARRINGTON on [facility]/21[facility] Vital Signs Date TimeVital SignValuePerforming HsodpbqpxZsyoaaqp62-05-1684 10:390400Body mass index (BMI) [Ratio]54.93 kg/r6NwydxqvYue Alanis MD Work Phone: [facility]09-17-2024 10:39-0400Body ywjemumbnzn43.6 [degF]Yue Alanis MD Work Phone: 1(290)[address] [place], [place] 4234509-17-2024 10:39-0400Body .22 kgYue Alanis MD Work Phone: 1(245)[address] [place], [place] 4234509-17-2024 10:39-0400 Diastolic blood zijkuxpx38 mm[Hg]Yue Alanis MD Work Phone: 1(449)[address] [place], [place] 4234509-17-2024 10:39-0400Heart rate77 /minYue Alanis MD Work Phone: 1(187)[address] [place], [place] 4234509-17-2024 10:39-0400 Respiratory rate18 /Dallas Alanis MD Work Phone: 1(684)[address] [place], [place] 4234509-17-2024 10:39-8764IgQ3% (BldA) [Mass fraction]99 %Yue Alanis MD Work Phone: 1(408)[address] [place], [place] 4234509-17-2024 10:39-0400Systolic blood nncqzapo291 mm[Hg]Yue Alanis MD Work Phone: 1(898)[address] [place], [place] 4234511-02-2023 14:45-0400Body jwkror614.48 Lukas Cohen Other [facility] [employer] Other 11-02-2023 14:45-0400Diastolic blood nprvtcsa98 mm[Hg] Mohsen Dimadelyny Other [employer] [facility] Other 11-02-2023 14:45-0400Systolic blood ljiueope408 mm[Hg] Mohsen Ditty Other [address] [facility] Other 09-05-2023 14:29-0400Body ivtnyp205.5 Lyle Alanis MD Work Phone: 1(914)[address] [place], [place] 4234509-05-2023 14:29-0400Body mass index (BMI) [Ratio]55.07 kg/q1AbagqjyYue Alanis MD Work Phone: 1(384)[address] [place], [place] 4234509-05-2023 14:29-0400Body moxjnmjawfi16 [degF]Yue Alanis MD Work Phone: 1(707)[address] [place], [place] 4234509-05-2023 14:29-0400Body tqotsx714.58 kgYue Alanis MD Work Phone: 1(466)[address] [place], [place] 4234509-05-2023 14:29-0400 Diastolic blood tjpvkyqj83 mm[Hg]Yue Alanis MD Work Phone: 1(151)[address] [place], [place] 4234509-05-2023 14:29-0400Heart rate62 /minYue Alanis MD Work Phone: 1(675)[address] [place], [place] 4234509-05-2023 14:29-0400 Respiratory rate22 /minYue Alanis MD Work Phone: 1(216)[address] [place], [place] 4234509-05-2023 14:29-0243AuS1% (BldA) [Mass fraction]98 %Yue Alanis MD Work Phone: 1(435)[address] [place], [place] 4234509-05-2023 14:29-0400Systolic blood repquqia108 mm[Hg]Yue Alanis MD Work Phone: 1(235)[address] [place], [place] 4234506-07-2023 10:46-0400Blood Pressure LocationMaddi CALLAWAY [facility]06-07-2023 10:46-0400Diastolic blood juugjrtv80 mm[Hg]Maddi CALLAWAY [facility]06-07-2023 10:46-0400Heart rate60 /minMaddi CALLAWAY [facility]06-07-2023 10:46-0400Respiratory rate16 /minMaddi CALLAWAY [facility]06-07-2023 10:46-0400Systolic blood klynhdhr274 mm[Hg]Maddi CALLAWAY [facility]02-03-2023 08:26-0500Body rghdiyprhui42.3 [degF]Travis Zarate MD Work Phone: 1(492)[facility]02-03-2023 08:26-0500 Diastolic blood otlkalll76 mm[Hg]Travis Zarate MD Work Phone: 1(619)[address] [place], [place] 5003502-03-2023 08:26-0500Heart rate67 /minTravis Zarate MD Work Phone: 1(225)[address] [place], [place] 5003502-03-2023 08:26-0500 Respiratory rate16 /minTravis Zarate MD Work Phone: 1(179)[facility]02-03-2023 08:26-9361XsT7% (BldA) [Mass fraction]99 %Travis Zarate MD Work Phone: 1(381)[facility]02-03-2023 08:26-0500Systolic blood gdsnsyjm370 mm[Hg]Travis Zarate MD Work Phone: 1(731)[facility]99[address]11-29-2022 14:13-0500Body zgacmh669.9 Lyle Alanis MD Work Phone: [phone]11-29-2022 14:13-0500Body mass index (BMI) [Ratio]58 kg/l7UdgoialYue Alanis MD Work Phone: [phone]11-29-2022 14:13-0500Body yrehdldunfb68.2 [degF]uYe Alanis MD Work Phone: 1(614)[address] [place], [place] 4234511-29-2022 14:13-0500Body xoskbm366.16 kgYue Alanis MD Work Phone: 1(710)[address] [place], [place] 4234511-29-2022 14:13-0500 Diastolic blood tenmscsu36 mm[Hg]Yue Alanis MD Work Phone: 1(737)[address] [place], [place] 4234511-29-2022 14:13-0500Heart jyuu864 /Dallas Alanis MD Work Phone: 1(895)[address] [place], [place] 4234511-29-2022 14:13-0500 Respiratory rate20 /Dallas Alanis MD Work Phone: 1(943)[address] [place], [place] 4234511-29-2022 14:13-3397HhB3% (BldA) [Mass fraction]96 %Yue Alanis MD Work Phone: 1(488)[address] [place], [place] 423[address]11-29-2022 14:13-0500Systolic blood jjreofko008 mm[Hg]Yue Alanis MD Work Phone: 1(213)[address] [place] [address] Encounters Encounter DateEncounter TypeCare ProviderFacilityStart: 08-21-2024 End: 15-35-0086blctdifortAlowtp X OrzechFacility:EU NorwalkStart: 08-12-2024 End: 48-73-3820wbinxdtfpiVchzld X OrzechFacility:FTMCStart: 08-12-2024 End: 95-00-0984Uytazql encounter procedureAurora X Orzech [facility] Start: 03-08-2024 End: 06-25-9687Xvovguwxz Result EncounterMattkasey GAO Work Phone: [facility] External Department UnsolicitedStart: 03-08-2024 End: 39-77-2591Mghqbxxru Result EncounterMalucy GAO Work Phone: [facility] External Department UnsolicitedStart: 02-18-2024 End: 38-89-2567Umhfgh outpatient visit 15 minutesChmike Alanis MD Work Phone: department of Gynecologic OncologyComment on above: Endometrial cancer (Primary Dx); Encounter for monitoring adjuvant hormonal therapyStart: 29-04-8509aoyxazuhpobogdan STEWARTacility:[facility] PH[facility]ICIANS, LLCStart: 06-19-2023 End: 56-85-8981cpqheaackeFwutqut Ditty Other [facility] Other Start: 01-38-1066Winfvzyrn encounterCamsam PascualG GastroenterologyStart: 06-04-2023 End: 87-59-0753Rjhmerc encounter procedureMatthewyovany [employer] [facility] Start: 05-29-2023 End: 23-08-5841Riy Drop offMaddi [employer] [facility] Start: 04-23-2023 End: 92-81-8888hcttmcrxyjUdtbyfu J DittyFacility:[facility] Centertart: 04-23-2023 End: 15-14-5620traqxhcknbKQQ STAFFUpper Valley Medical Center Ctr Work Phone: Start: 04-23-2023 End: 41-67-9976Xpxsral encounter procedureUpper Valley Medical Center Ctr- [facility] Work Phone: Start: 04-09-2023 End: 47-79-6683shmtosacsuIpnwmdr J DittyFacility:[facility] Centertart: 04-09-2023 End: 33-13-2813Lfiwggn encounter procedureUpper Valley Medical [facility]tr-Lab [place] Work Phone: Start: 04-04-2023 End: 81-53-4894denkvbjhhfKowmdlc Ditty Other [place] [facility] Other Start: 56-77-7821BBQO visit new Yaron Cohen [facility] GastroenterologyStart: 02-05-2023 End: 77-38-4900Fphtbh outpatient visit 15 minutesYue Alanis MD Work Phone: department of Gynecologic OncologyComment on above: Endometrial cancer (Primary Dx); Pelvic massStart: 11-16-2022 End: 87-24-5880Ezhwysb encounter procedureMatthewyovany CALLAWAY [facility] Start: 11-07-2022 End: 38-50-8828Wxzwyrt encounter procedureMatthewyovany CALLAWAY [facility] Start: 07-06-2022 End: 37-13-3466Bvywrgewwy hospital visit by Bernadette Zarate MD Work Phone: [facility] DoanComment on above:ArrivedStart: 06-11-2022 End: 90-50-1218Epvdzpkccg hospital visit by Aishwarya Alanis MD Work Phone: [facility] CenterComment on above:Arrived Start: 05-07-2022 End: 53-15-0898Nkqxstr encounter procedureMatthewyovany CALLAWAY [facility] Start: 05-01-2022 End: 33-95-2249Yxldjg outpatient visit 25 minutesYue Alanis MD Work Phone: department of Gynecologic OncologyComment on above: Endometrial cancer (Primary Dx)Start: 04-16-2022 End: 27-37-9607fwbiyuaqbsDJ KIM E KNIGHTFacility:H1 Procedures DateProcedureProcedure DetailPerforming ClinicianStart: 71-95-8593Uwbebpwn identified in Urine by CultureManuel GAO Work Phone: Start: 04-21-3091Wcvychbycm elastography of liver Start: 24-97-5812Pml pelvis w/o & w/contrast materialChmike Alanis MD Work Phone: Start: 96-27-8560Qelkujo measurement, Cammy Zarate MD Work Phone: Start: 19-80-3218Zff imaging ct attenuation skull base mid-thighYue Alanis MD Work Phone: Start: 47-09-5391Nlkipkb measurement, bloodYue Alanis MD Work Phone: Start: 97-95-4242Wqzsn assisted laparoscopic total hysterectomyMaddi CALLAWAY Plan of Treatment DateCare ActivityDetailAuthorStart: 02-18-2024 End: 09-87-1347UH Abdomen and Pelvis W contrast IVCT ABDOMEN/PELVIS WITH CONTRAST Imaging Routine Endometrial cancer Expected: 02/18/2024, Expires: [facility]SAcm[facility] GlenbeighComment on above:Expected: 02/18/2024, Expires: 02/17/2025Start: 02-18-2024 End: 28-58-4450Jxzmkpv encounter crfkokwsz95/17/2024 10:45 AM EDT Office Visit Department of Gynecologic Oncology [address] [place] [address] [place] [address] Yue Alanis MD [address] [place] [address] [place] [address] Department of Gynecologic OncologyStart: 73-23-5349QLBVR-19 VACCINE ()COVID-19 VACCINE ()[facility]tart: 19-45-9057Jilblrbxv vaccinationINFLUENZA VACCINE (#1)[facility] Hospitaltart: 26-66-2283SaokcvvlsUniversity Hospitals Portage Medical Centertart: 02-05-2023 End: 72-06-4666US Abdomen and Pelvis W contrast IVCT ABDOMEN/PELVIS WITH CONTRAST Imaging Routine Endometrial cancer Expected: 02/05/2023, Expires: [facility] HospitalComment on above:Expected: 02/05/2023, Expires: 02/06/2024Start: 39-12-1878Fhqtgqsfu vaccinationINFLUENZA VACCINE (#1)[facility] Hospitaltart: 07-12-2022 End: 40-96-7465Qddkvfu encounter /09/2023 Office Visit Radiation Oncology Alisha Bradshaw MD [address] [place] [address] Department of Radiation OncologyStart: 07-09-2022 End: 64-21-7124Svnyijfyguit consultation with lxfjqtm8307/09/2022 Telemedicine Gynecological Oncology Yue Alanis MD [place] [address] Department of Gynecologic OncologyStart: 06-21-2022 End: 18-80-0142Zjpcwiyflnax consultation with hhjhpxb6406/21/2022 Telemedicine Gynecological Oncology Yue Alanis MD [place] [address] Department of Gynecologic OncologyStart: 06-11-2022 End: 78-41-0011Eovfguo encounter ipyntqvqj72/09/2023 Appointment Nuclear Medicine Yue Alanis MD [address] [place] [address] [facility] Hospitaltart: 50-79-5676Fmtdbqskq vaccinationINFLUENZA VACCINE (#1)[facility] Start: 20-44-9146Rymgbpn vaccinationTETANUSOhioHealth Riverside Methodist Hospitaltart: 48-82-1782YAUFI-19 VACCINE (4 - Booster for Pfizer series)COVID-19 VACCINE (4 - Booster for Pfizer series)[facility] Hospitaltart: 39-74-3411WRCZM-19 VACCINE (4 - Pfizer series)COVID-19 VACCINE (4 - Pfizer series)OSUniversity Hospitals Health Systemtart: 73-65-7047Wwuxgsxylvap vaccinationPNEUMOCOCCAL VACCINE SERIES (1 - PCV)OSWayne Hospital CenterStart: 48-09-0331Twheqw vaccine hzv live for subcutaneous useZOSTER (SHINGLES) VACCINE (1 of 2)OSWayne Hospital CenterStart: 74-43-3967Ygvhxrizo for malignant neoplasm of colonCOLORECTAL CANCER SCREENING DISCUSSIONOSUniversity Hospitals Health Systemtart: 18-69-9751Iacpg panel LIPID SCREENINGOSUniversity Hospitals Health Systemtart: 79-64-4878Icjgdolck for malignant neoplasm of breastMAMMOGRAM SCREENING DISCUSSIONOSUniversity Hospitals Health Systemtart: 12-60-5131Sjsdglego for malignant neoplasm of cervixCERVICAL CANCER SCREENING DISCUSSIONOSUniversity Hospitals Health Systemtart: 42-85-7374Tzjpdwqup C screening HEPATITIS C VIRUS SCREENINGOSUniversity Hospitals Health Systemtart: 49-07-8540Ippvegweb for osteoporosisDEXA SCAN DISCUSSIONMercy Health St[facility] End: 64-65-8514ZP Guidance for deep biopsy of BoneCT DEEP BONE (VERTEBRAL BODY, FEMUR) BIOPSY Imaging Routine Bone lesion 1 Occurrences starting 07/06/2022 until 07/06/2022[facility] Work Phone: comment on above:1 Occurrences starting 07/06/2022 until 07/06/2022 Payers DatePayer CategoryPayerPolicy [id number] Health [id number] 2022MedicareMEDICARE AETNA HMO OR PPO MEDICARE AETNA PPO [id number] 2021-Present [address] JONAS CAMARGO [id number] [id number] 2.16.840.1.001549.3.57[id number] 2..840.1.518527.3.57[id number] 2.16.840.1.7[id number] 2..840.1.834210.3.579.2.531 [id number] 2.16.840.1.025466.3.579.2.531 Social History DateTypeDetailFacilityTobacco smoking statusFishUniversity of Maryland Medical Centertart: 02-05-2023 End: 61-45-7816Adr Assigned At BirthFemaleFMercy Health St. Joseph Warren Hospitaltart: 05-01-2022 End: 58-41-1661Oszgzxw smoking status NHISNever smoked tobaccoOSUniversity Hospitals Health Systemtart: 04-11-5650Ekspzpu use and exposureSmokeless tobacco non-userOSUniversity Hospitals Health Systemtart: 05-01-2022 End: 92-28-0325Pdyupqb intakeCurrent drinker of alcohol (finding)[facility]tart: 88-56-8005Sxe Assigned At BirthNot on fileOSUniversity Hospitals Health Systemtart: 05-04-2022 End: 00-50-8371Obsuzcci to SARS-CoV-2 (event)Unable to assessOSUniversity Hospitals Health Systemtart: 06-01-2022 End: [id number] to SARS-CoV-2 (event)Not sureOSAcmc Healthcare System Glenbeigh Start: 02-05-2023 End: [id number] of Social functionOSAcmc Healthcare System GlenbeighAdolescent depression screening [id number] [facility]Gender identity Identifies as female gender (finding)[facility] 1955 Sex Assigned At BirthFeParkview HealthTobacc smoking status NHISTobacco smoking consumption unknownNOMS Healthcare Goals DatePatient GoalDesired Activity/State Functional Status [id number] StatusN/AExecutive Urology of Michael [facility]ille [id number] StatusN/AFOhioHealth Grady [facility] Clinical Notes 03-21-2021 to 08-21-2024 Note Date & [id number] NotePatient Education Urology Kidney Stones Kidney stones are rock-like masses that form inside of the kidneys. Kidneys are organs that make pee (urine). A kidney stone may move into other parts of the urinary tract, including: ??? The tubes that connect the kidneys to the bladder (ureters). ??? The bladder. ??? The tube that carries urine out of the body (urethra). Kidney stones can cause very bad pain and can block the flow of pee. The stone usually leaves your body through your pee. A doctor may need to take out the stone. What are the causes? Kidney stones may be caused by: ??? Too much calcium in the body. This may be caused by too much parathyroid hormone in the blood. ??? Uric acid crystals in the bladder. The body makes uric acid when you eat certain foods. ??? Narrowing of one or both of the ureters. ??? A kidney blockage that you were born with. ??? Past surgery on the kidney or the ureters. What increases the risk? You are more likely to develop this condition if: ??? You have had a kidney stone in the past. ??? Other people in your family have had kidney stones. ??? You do not drink enough water. ??? You eat a diet that is high in protein, salt (sodium), or sugar. ??? You are very overweight (obese). What are the signs or symptoms? Symptoms of a kidney stone may include: ??? Pain in the side of the belly, right below the ribs. Pain usually spreads to the groin. ??? Needing to pee often or right away. ??? Pain when peeing. ??? Blood in your pee. ??? Feeling like you may vomit (nauseous). ??? Vomiting. ??? Fever and chills. How is this treated? Treatment depends on the size, location, and makeup of the kidney stones. The stones will often pass out of the body when you pee. You may need to: ??? Drink more fluid to help pass the stone. ? In some cases, you may be given fluids through an IV tube at the hospital. ??? Take medicine for pain. ??? Change your diet to help keep kidney stones from coming back. Sometimes, you may need: ??? A procedure to break up kidney stones using a beam of light (laser) or shock waves. ??? Surgery to remove the kidney stones. Follow these instructions at home: Medicines ??? Take uhyz-iek-goytmww and prescription medicines only as told by your doctor. ??? Ask your doctor if the medicine prescribed to you requires you to avoid driving or using machinery. Eating and drinking ??? Drink enough fluid to keep your pee pale yellow. ? You may be told to drink at least 8?10 glasses of water each day. This will help you pass the stone. ??? If told by your doctor, change your diet. You may be told to: ? Limit how much salt you eat. ? Eat more fruits and vegetables. ? Limit how much meat, poultry, fish, and eggs you eat. ??? Follow instructions from your doctor about what you may eat and drink. General instructions ??? Collect pee samples as told by your doctor. You may need to collect a pee sample: ? 24 hours after a stone comes out. ? 8?12 weeks after a stone comes out, and every 6?12 months after that. ??? Strain your pee every time you pee. Use the strainer that your doctor recommends. ??? Do not throw out the stone. Keep it so that it can be tested by your doctor. ??? Keep all follow-up visits. You may need X-rays and ultrasounds to make sure the stone has come out. How is this prevented? To prevent another kidney stone: ??? Drink enough fluid to keep your pee pale yellow. This is the best way to prevent kidney stones. ??? Eat healthy foods. ??? Avoid certain foods as told by your doctor. You may be told to eat less protein. ??? Stay at a healthy weight. Where to find more information ??? National Kidney Foundation (NKF): kidney.org ??? [employer] Care Foundation (UCF): urologyhealth.org Contact a doctor if: ??? You have pain that gets worse or does not get better with medicine. Get help right away if: ??? You have a fever or chills. ??? You get very bad pain. ??? You get new pain in your belly. ??? You faint. ??? You cannot pee. This information is not intended to replace advice given to you by your health care provider. Make sure you discuss any questions you have with your health care provider. Document Revised: 01/11/2023 Document Reviewed: 01/11/2023 [employer] Patient Education ? 2023 [employer] 02-18-2024 History of Present illness Narrative* Danelle Garcia, [employer] - 02/18/2024 10:45 AM EDT Subjective: History of present illness: Patient Active Problem List Pelvic mass HEWITT (dyspnea on exertion) Bilateral leg edema Hip pain Fatigue HTN (hypertension) Morbid obesity 08/19/12: Body mass index is 65.97 kg/meters squared. 03/10/13: Body mass index is 61.77 kg/meters squared. 06/16/13: Body mass index is 63.34 kg/meters squared. 10/06/13:Body mass index is 64.33 kg/meters squared. Endometrial cancer 12/05/10: Robotic hysterectomy, bilateral salpingo-oophorectomy and pelvic lymph node dissection: Stage IA (21% myometrial invasion), grade 1 endometrial cancer. 09/12/12: Vaginal cuff biopsies: Moderately differentiated adenocarcinoma consistent with endometrial primary. 12/12/2012: Completed external beam radiation and vaginal brachytherapy 11/09/14: Recurrence diagnosed at vaginal cuff 12/02/14: Vaginal mass resection: Moderately differentiated endometrial cancer. 12/14/14: Megace/Tamoxifen. Interim history since last visit: She has no new urogynaecologist complaints. She is currently getting worked up by her PCP for left lower ext numbness/weakness that has been ongoing x 1 year. She states her abdominal/pelvic pain has improved. Denies current abdominal pain, n/v/d/c, urinary complaints, vaginal discharge. Con't to take tamoxifen/megace without issue. Past Medical History: Diagnosis Date Diabetes mellitus Endometrial cancer HTN (hypertension) Kidney stone 04/17/2022 morbid obes 356 # Past Surgical History: Procedure Laterality Date RENAL STENT PLACEMENT Right 04/17/2022 REMOVAL CATARACT WITH INSERTION INTRAOCCULA Right 07/2021 EXTRACTION EXTRACAPSULAR CATARACT W/ IMPLANT (ECCE IOL) Left 02/08/2021 [facility] BX VAGINA EXTENSIVE Midline 12/02/2014 Laterality: Midline; Surgeon: Jeana Roque MD; Location: [facility] MAIN OR EXAM UNDER ANESTHESIA PELVIC Midline 09/12/2012 Laterality: Midline; Surgeon: Jeana Roque MD; Location: [facility] MAIN OR BX VAGINA SIMPLE Midline 09/12/2012 Laterality: Midline; Surgeon: Jeana Roque MD; Location: [facility] MAIN OR HYSTERECTOMY SUBTOTAL ABDOMINAL ROBOTIC W/ REMOVAL TUBES AND/OR OVARIES 2010 DILATION AND CURETTAGE REFRACTIVE SURGERY TUBAL LIGATION OB History 3 Para 2 Term 2 0 AB 1 Living 2 SAB 1 IAB Ectopic Molar Multiple Live Births Obstetric Comments Menarche 11, menopause at 49. H/o regular monthly heavy cycles. OCPx1 year. No HRT. No abnormal papsmears. Family History Problem Relation Age of Onset Breast Cancer Maternal Grandmother 89 Hypertension Mother Colorectal Cancer Neg Hx Ovarian Cancer Neg Hx Uterine Cancer Neg Hx Social History Socioeconomic History Marital status: Spouse name: Not on file Number of children: Not on file Years of education: Not on file Highest education level: Not on file Occupational History Occupation: algebra teacher Employer: [employer] Tobacco Use Smoking status: Never Smokeless tobacco: Never Vaping Use Vaping status: Never Used Substance and Sexual Activity Alcohol use: Yes Comment: social Drug use: No Sexual activity: Yes Other Topics Concern Not on file Social History Narrative Not on file Social Determinants of Health Financial Resource Strain: Not on file Food Insecurity: Not on file Transportation Needs: Not on file Physical Activity: Not on file Stress: Not on file Social Connections: Not on file Intimate Partner Violence: Not on file Housing Stability: Not on file Current Outpatient Medications: Allopurinol 100 MG tablet, , Disp: , Rfl: gliMEPIride 1 MG Tab, Take 1 tablet by mouth daily every morning., Disp: , Rfl: lisinopril 40 MG Tab, Take 1 tablet by mouth at bedtime., Disp: , Rfl: megestrol 40 MG tablet, Take 2 tablets by mouth 2 times daily., Disp: 168 tablet, Rfl: 8 metformin 500 MG Tab, Take 1 tablet by mouth 2 times daily with meals., Disp: , Rfl: metoprolol succinate 25 MG PO tablet XL, Take 2 tablets by mouth 2 times daily. Taking 2 tabs in the morning and 1 tab in the evening., Disp: , Rfl: Multiple Vitamin (MULTI-VITAMIN PO), take 1 Tab by mouth every morning before breakfast., Disp: , Rfl: Naproxen Sodium (ALEVE PO), Take 2 tablets by mouth as needed. Reported on 09/11/2016, Disp: , Rfl: oxybutynin 5 MG Tab, Take 1 tablet by mouth 3 times daily., Disp: , Rfl: tamoxifen 20 MG tablet, TAKE ONE TABLET BY MOUTH TWICE A DAY, ALTERNATE BETWEEN THREE WEEKS ON, THREE WEEKS OFF WITH MEGACE, Disp: 84 tablet, Rfl: 8 ciprofloxacin 500 MG tablet, , Disp: , Rfl: Allergies Allergen Reactions Eggs [Egg Phospholipids] Hives Sulfa Antibiotics Hives Health Maintenance: Last mammogram: November 2018-normal Last colonoscopy: Never Review of Systems: Review of Systems Constitutional: Positive for fatigue. Negative for activity change and fever. HENT: Negative for congestion, rhinorrhea and sore throat. Eyes: Negative for redness and visual disturbance. Respiratory: Negative for chest tightness, shortness of breath and wheezing. Cardiovascular: Negative for chest pain, palpitations and leg swelling. Gastrointestinal: Negative for abdominal distention, abdominal pain, blood in stool, constipation, diarrhea, nausea and vomiting. Genitourinary: Negative for dysuria, hematuria, vaginal bleeding, vaginal discharge and vaginal pain. Musculoskeletal: Negative for back pain and neck pain. Skin: Negative. Neurological: Positive for numbness. Negative for dizziness, weakness, light- headedness and headaches. Psychiatric/Behavioral: Negative for hallucinations and sleep disturbance. Objective: Physical Exam BP 175/79 (BP Location: Left arm, BP Position: Sitting) Pulse 77 Temp 98.6 F (37 C) (Oral) Resp 18 Wt (!) 136.2 kg (300 lb 4.8 oz) SpO2 99% BMI 54.93 kg/m Smoking Status Never Wt Readings from Last 3 Encounters: 02/18/24 (!) 136.2 kg (300 lb 4.8 oz) 02/05/23 (!) 136.6 kg (301 lb 1.6 oz) 05/01/22 (!) 139.2 kg (306 lb 12.8 oz) Physical Exam Vitals and nursing note reviewed. Exam conducted with a log tumbler present. Eyes: Conjunctiva/sclera: Conjunctivae normal. Cardiovascular: Rate and Rhythm: Normal rate and regular rhythm. Pulses: Normal pulses. Heart sounds: Normal heart sounds. No murmur heard. No friction rub. No gallop. Pulmonary: Effort: Pulmonary effort is normal. No respiratory distress. Breath sounds: Normal breath sounds. No wheezing. Abdominal: General: Bowel sounds are normal. There is no distension. Palpations: Abdomen is soft. There is no mass. Tenderness: There is no abdominal tenderness. Hernia: No hernia is present. Genitourinary: Comments: External genitalia: Normal labia, clitoris, urethral meatus, introitus, perineum, anus. Internal genitalia: normal vagina, no appreciable lesions. Uterus, cervix, tubes, ovaries are surgically absent. no masses on bimanual examination. Musculoskeletal: Cervical back: Normal range of motion and neck supple. Right lower leg: Edema (scant to +1 pitting edema bilaterally) present. Left lower leg: Edema present. Lymphadenopathy: Cervical: No cervical adenopathy. Skin: General: Skin is warm and dry. Neurological: General: No focal deficit present. Mental Status: She is alert and oriented to person, place, and time. Psychiatric: Mood and Affect: Mood normal. Thought Content: Thought content normal. Assessment/Plan: Julita Silva is a 68 y.o. female with recurrent endometrial cancer and is currently on tamoxifen/megace (since 12/2014). Feels well overall. Exam is without concerning findings. No evidence of disease by exam or symptoms. S/sx of recurrence reviewed. She will call our office if she experiences any of these. Last imaging CT AP on 02/15/23 was KAYLA. Will order repeat imaging today. Con't on megace/tamoxifen. If repeat scans show KAYLA, discuss coming off megace/tamoxifen. Will set up televisit to review scans/discuss. Plan: return via televisit ENZO Kramer Time spent for Julita Silva's appointment was 15 minutes in review of records, review of diagnostic testing, other provider notes, coordination of care, meeting with team to discuss the patient and the above, charting, and face to face time with the patient on the same day as the visit. I saw and independently evaluated this patient today. I discussed my findings and the therapeutic plan with EDWARD Hagen. I have reviewed, repeated or observed the pertinent aspects of the history, physical examination, and have developed the assessment and plan as indicated and edited above. I provided a substantive portion of the care for this patient. I personally performed all aspects of the medical decision making for this encounter. I have reviewed and verified this documentation and it accurately reflects our care. Of note, both the EDWARD and I saw and evaluated the patient together. The EDWARD documented the note and I edited it as needed. Time spent for the appointment was 20 minutes in review of records, review of diagnostic testing, other provider notes, coordination of care, meeting with team to discuss the patient and the above, charting, and face to face time with thepatient on the same day as the visit. Yue Alanis M.D. Client Architect Division of Gynecology Oncology documented in this encounterU [facility] Evaluation note * Encounter Date Diagnosis Assessment Notes Treatment Notes Treatment Clinical Notes Apr, Cirrhosis (ICD-10 - K74.60) Patient did have a CT that indicated some scaring Patient reports that as a child she was hospitalized for jaundice Patient is advised to have a complete liver work up including labs and FibroScan Risks and benefitsof procedure explained to patient; patient verbalizes understanding. [employer] Other 09-05-2023 History of Present illness Narrative* ENZO Kramer - 02/05/2023 2:30 PM EDT Subjective: History of present illness: Patient Active Problem List Pelvic mass HEWITT (dyspnea on exertion) Bilateral leg edema Hip pain Fatigue HTN (hypertension) Morbid obesity 08/19/12: Body mass index is 65.97 kg/meters squared. 03/10/13: Body mass index is 61.77 kg/meters squared. 06/16/13: Body mass index is 63.34 kg/meters squared. 10/06/13:Body mass index is 64.33 kg/meters squared. Endometrial cancer 12/05/10: Robotic hysterectomy, bilateral salpingo-oophorectomy and pelvic lymph node dissection: Stage IA (21% myometrial invasion), grade 1 endometrial cancer. 09/12/12: Vaginal cuff biopsies: Moderately differentiated adenocarcinoma consistent with endometrial primary. 12/12/2012: Completed external beam radiation and vaginal brachytherapy 11/09/14: Recurrence diagnosed at vaginal cuff 12/02/14: Vaginal mass resection: Moderately differentiated endometrial cancer. 12/14/14: Megace/Tamoxifen. Interim history since last visit: She has no new complaints - her right hip pain has resolved. Saw ortho after our last visit and wasinstructed to use mobic. Was told ortho doesn't believe it is related to cancer. She states her abdominal/pelvic pain has improved. Denies current abdominal pain, n/v/d/c, urinary complaints, vaginaldischarge. Past Medical History: Diagnosis Date Diabetes mellitus Endometrial cancer HTN (hypertension) Kidney stone 04/17/2022 morbid obes 356 # Past Surgical History: Procedure Laterality Date RENAL STENT PLACEMENT Right 04/17/2022 REMOVAL CATARACT WITH INSERTION INTRAOCCULA Right 07/2021 EXTRACTION EXTRACAPSULAR CATARACT W/ IMPLANT (ECCE IOL) Left 02/08/2021 [facility] BX VAGINA EXTENSIVE Midline 12/02/2014 Laterality: Midline; Surgeon: Jeana Roque MD; [facility] ANESTHESIA PELVIC Midline 09/12/2012 Laterality: Midline; Surgeon: Jeana Roque MD; Location: [facility] MAIN OR BX VAGINA SIMPLE Midline 09/12/2012 Laterality: Midline; Surgeon: Jeana Roque MD; Location: [facility] MAIN OR HYSTERECTOMY SUBTOTAL ABDOMINAL ROBOTIC W/ REMOVAL TUBES AND/OR OVARIES 2010 DILATION AND CURETTAGE REFRACTIVE SURGERY TUBAL LIGATION OB History 3 Para 2 Term 2 0 AB 1 Living 2 SAB 1 IAB Ectopic Molar Multiple Live Births Obstetric Comments Menarche 11, menopause at 49. H/o regular monthly heavy cycles. OCPx1 year. No HRT. No abnormal papsmears. Family History Problem Relation Age of Onset Breast Cancer Maternal Grandmother 89 Hypertension Mother Colorectal Cancer Neg Hx Ovarian Cancer Neg Hx Uterine Cancer Neg Hx Social History Socioeconomic History Marital status: Spouse name: Not on file Number of children: Not on file Years of education: Not on file Highest education level: Not on file Occupational History Occupation: algebra teacher Employer: [employer] Tobacco Use Smoking status: Never Smokeless tobacco: Never Vaping Use Vaping Use: Never used Substance and Sexual Activity Alcohol use: Yes Comment: social Drug use: No Sexual activity: Yes Other Topics Concern Not on file Social History Narrative Not on file Social Determinants of Health Financial Resource Strain: Not on file Food Insecurity: Not on file Transportation Needs: Not on file Physical Activity: Not on file Stress: Not on file Social Connections: Not on file Intimate Partner Violence: Not on file Housing Stability: Not on file Current Outpatient Medications: gliMEPIride 1 MG Tab, Take 1 tablet by mouth daily every morning., Disp: , Rfl: lisinopril 40 MG Tab, Take 1 tablet by mouth at bedtime., Disp: , Rfl: megestrol 40 MG tablet, Take 2 tablets by mouth 2 times daily., Disp: 168 tablet, Rfl: 4 metformin 500 MG Tab, Take 1 tablet by mouth 2 times daily with meals., Disp: , Rfl: metoprolol succinate 25 MG PO tablet XL, Take 2 tablets by mouth 2 times daily. Taking 2 tabs in the morning and 1 tab in the evening., Disp: , Rfl: Multiple Vitamin (MULTI-VITAMIN PO), take 1 Tab by mouth every morning before breakfast., Disp: , Rfl: oxybutynin 5 MG Tab, Take 1 tablet by mouth 3 times daily., Disp: , Rfl: tamoxifen 20 MG tablet, Take 1 tablet by mouth 2 times daily. Alternate 3 weeks on 3 weeks off withmegace, Disp: 84 tablet, Rfl: 4 Allopurinol 100 MG tablet, , Disp: , Rfl: ciprofloxacin 500 MG tablet, , Disp: , Rfl: Naproxen Sodium (ALEVE PO), take 2 tablets by mouth as needed.. Reported on 09/11/2016 (Patient not taking: Reported on 02/05/2023), Disp: , Rfl: Allergies Allergen Reactions Eggs [Egg Phospholipids] Hives Sulfa Antibiotics Hives Health Maintenance: Last mammogram: November 2018-normal Last colonoscopy: Never Review of Systems: Review of Systems Constitutional: Negative for activity change, fatigue and fever. HENT: Negative for congestion, rhinorrhea and sore throat. Eyes: Negative for redness and visual disturbance. Respiratory: Negative for chest tightness, shortness of breath and wheezing. Cardiovascular: Negative for chest pain, palpitations and leg swelling. Gastrointestinal: Negative for abdominal distention, abdominal pain, blood in stool, constipation, diarrhea, nausea and vomiting. Genitourinary: Negative for dysuria, hematuria, vaginal bleeding, vaginal discharge and vaginal pain. Musculoskeletal: Negative for back pain and neck pain. Skin: Negative. Neurological: Negative for dizziness, weakness, light-headedness, numbness and headaches. Psychiatric/Behavioral: Negative for hallucinations and sleep disturbance. Objective: Physical Exam BP 173/77 (BP Location: Right arm, BP Position: Sitting) Pulse 62 Temp 99 F (37.2 C) (Oral) Resp 22 Ht 1.575 m (5' 2 ) Wt (!) 136.6 kg (301 lb 1.6 oz) SpO2 98% BMI 55.07 kg/m Smoking Status Never Wt Readings from Last 3 Encounters: 02/05/23 (!) 136.6 kg (301 lb 1.6 oz) 05/01/22 (!) 139.2 kg (306 lb 12.8 oz) 05/16/21 (!) 137.1 kg (302 lb 3.2 oz) Physical Exam Vitals and nursing note reviewed. Cardiovascular: Rate and Rhythm: Normal rate and regular rhythm. Pulses: Normal pulses. Heart sounds: Normal heart sounds. No murmur heard. No friction rub. No gallop. Pulmonary: Effort: Pulmonary effort is normal. No respiratory distress. Breath sounds: Normal breath sounds. No wheezing. Abdominal: General: Bowel sounds are normal. There is no distension. Palpations: Abdomen is soft. There is no mass. Tenderness: There is no abdominal tenderness. Hernia: No hernia is present. Genitourinary: Comments: Per Dr Alanis Musculoskeletal: General: No swelling. Normal range of motion. Cervical back: Normal range of motion and neck supple. Lymphadenopathy: Cervical: No cervical adenopathy. Skin: General: Skin is warm and dry. Neurological: General: No focal deficit present. Mental Status: She is alert and oriented to person, place, and time. Psychiatric: Mood and Affect: Mood normal. Thought Content: Thought content normal. Imaging 07/06/22 Pelvic MRI 1. Soft tissue edema/inflammation along the right pelvic sidewall and along the right anterior acetabular column with adjacent periostitis although there is no discrete lesion visualized. 2. Osteoarthritic changes of bilateral hips with an associated anterior right acetabular labral tear. 3. Stable cystic lesion within the left pelvis. Assessment/Plan: Julita Silva is a 67 y.o. female with recurrent endometrial cancer and is currently on tamoxifen/megace (since 12/2014). She is here for follow up of her pelvic mass that was found on imaging in jul 2022. She has since followed up with orthopedics for right hip pain who recommended mobic. Her hippain has resolved. No pelvic pain or new symptoms. Feels well overall. Exam is without concerning findings. Will obtain CT AP (locally) to ensure her pelvic mass is stable. If CT AP normal, may return for follow up next year (annually). Plan: return in [address] AP normal Dnaelle Garcia, [employer] Time spent for Julita Silva's appointment was 21 minutes in review of records, review of diagnostic testing, other provider notes, coordination of care, meeting with team to discuss the patient and the above, charting, and face to face time with the patient on the same day as the visit. I saw and independently evaluated this patient today. I discussed my findings and the therapeutic plan with EDWARD Hagen. I have reviewed, repeated or observed the pertinent aspects of the history, physical examination, and have developed the assessment and plan as indicated and edited above. I provided a substantive portion of the care for this patient. I personally performed all aspects of the medical decision making for this encounter. I have reviewed and verified this documentation and it accurately reflects our care. Of note, both the EDWARD and I saw and evaluated the patient together. The EDWARD documented the note and I edited it as needed. Time spent for the appointment was 22 minutes in review of records, review of diagnostic testing, other provider notes, coordination of care, meeting with team to discuss the patient and the above, charting, and face to face time with thepatient on the same day as the visit. Yue Alanis M.D. Client Architect Division of Gynecology Oncology documented in this encounterMer[facility] Instructions* Patient Instructions* ENZO Kramer - 02/05/2023 2:[address] AP ENZO Kramer documented in this encounterOSU [facility] [place]06-07-2023 Hospital Discharge instructions Patient Education 11/07/2022 11:31:33 Dietary Guidelines to Help Prevent Kidney Stones Dietary Guidelines to Help Prevent Kidney Stones Kidney stones are deposits of minerals and salts that form inside your kidneys. Your risk of developing kidney stones may be greater depending on your diet, your lifestyle, the medicines you take, and whether you have certain medical conditions. Most people can lower their chances of developing kidney stones by following the instructions below. Your dietitian may give you more specific instructions depending on your overall health and the type of kidney stones you tend to develop. What are tips for following this plan? Reading food labels Choose foods with no salt added or low-salt labels. Limit your salt (sodium) intake to less than 1,500 mg a day. Choose foods with calcium for each meal and snack. Try to eat about 300 mg of calcium at each meal.Foods that contain 200 500 mg of calcium a serving include: ?8 oz (237 mL) of milk, kttzlrj-tyzexxdyqifa-mnxip milk, and calcium- fortifiedfruit juice. Calcium-fortified means that calcium has been added to these drinks. ?8 oz (237 mL) of kefir, yogurt, and soy yogurt. ?4 oz (114 g) of tofu. ?1 oz (28 g) of cheese. ?1 cup (150 g) of dried figs. ?1 cup (91 g) of cooked broccoli. ?One 3 oz (85 g) can of sardines or mackerel. Most people need 1,000 1,500 mg of calcium a day. Talk to your dietitian about how much calcium is recommended for you. Shopping Buy plenty of fresh fruits and vegetables. Most people do not need to avoid fruits and vegetables, even if these foods contain nutrients that may contribute to kidney stones. When shopping for convenience foods, choose: ?Whole pieces of fruit. ?Pre-made salads with dressing on the side. ?Low-fat fruit and yogurt smoothies. Avoid buying frozen meals or prepared deli foods. These can be high in sodium. Look for foods with live cultures, such as yogurt and kefir. Choose high-fiber grains, such as whole-wheat breads, oat bran, and wheat cereals. Cooking Do not add salt to food when cooking. Place a salt shaker on the table and allow each person to addhis or her own salt to taste. Use vegetable protein, such as beans, textured vegetable protein (TVP), or tofu, instead of meat inpasta, casseroles, and soups. Meal planning Eat less salt, if told by your dietitian. To do this: ?Avoid eating processed or pre-made food. ?Avoid eating fast food. Eat less animal protein, including cheese, meat, poultry, or fish, if told by your dietitian. To dothis: ?Limit the number of times you have meat, poultry, fish, or cheese each week. Eat a diet free of meat at least 2 days a week. ?Eat only one serving each day of meat, poultry, fish, or seafood. ?When you prepare animal protein, cut pieces into small portion sizes. For most meat and fish, one serving is about the size of the palm of your hand. Eat at least five servings of fresh fruits and vegetables each day. To do this: ?Keep fruits and vegetables on hand for snacks. ?Eat one piece of fruit or a handful of berries with breakfast. ?Have a salad and fruit at lunch. ?Have two kinds of vegetables at dinner. Limit foods that are high in a substance called oxalate. These include: ?Spinach (cooked), rhubarb, beets, sweet potatoes, and [place] chard. ?Peanuts. ?Potato chips, pu[place] fries, and baked potatoes with skin on. ?Nuts and nut products. ?Chocolate. If you regularly take a diuretic medicine, make sure to eat at least 1 or 2 servings of fruits or vegetables that are high in potassium each day. These include: ?Avocado. ?Banana. ?[place], prune, carrot, or tomato juice. ?Baked potato. ?Cabbage. ?Beans and split peas. Lifestyle Drink enough fluid to keep your urine pale yellow. This is the most important thing you can do. Spread your fluid intake throughout the day. If you drink alcohol: ?Limit how much you use to: ?0 1 drink a day for women who are not . ?0 2 drinks a day for men. ?Be aware of how much alcohol is in your drink. In the [place] one drink equals one 12 oz bottle of beer (355 mL), one 5 oz glass of wine (148 mL), or one 1 oz glass of hard liquor (44 mL). Lose weight if told by your health care provider. Work with your dietitian to find an eating plan and weight loss strategies that work best for you. General information Talk to your health care provider and dietitian about taking daily supplements. You may be told thefollowing depending on your health and the cause of your kidney stones: ?Not to take supplements with vitamin C. ?To take a calcium supplement. ?To take a daily probiotic supplement. ?To take other supplements such as magnesium, fish oil, or vitamin B6. Take iuuh-ocj-unzvdpm and prescription medicines only as told by your health care provider. These include supplements. What foods should I limit? Limit your intake of the following foods, or eat them as told by your dietitian. Vegetables Spinach. Rhubarb. Beets. Canned vegetables. Pickles. Olives. Baked potatoes with skin. Grains Wheat bran. Baked goods. Salted crackers. Cereals high in sugar. Meats and other proteins Nuts. Nut butters. Large portions of meat, poultry, or fish. Salted, precooked, or cured meats, such as sausages, meat loaves, and hot dogs. Dairy Cheese. Beverages Regular soft drinks. Regular vegetable juice. Seasonings and condiments Seasoning blends with salt. Salad dressings. Soy sauce. Ketchup. Barbecue sauce. Other foods Canned soups. Canned pasta sauce. Casseroles. Pizza. Lasagna. Frozen meals. Potato chips. Finnish fries. The items listed above may not be a complete list of foods and beverages you should limit. Contact a dietitian for more information. What foods should I avoid? Talk to your dietitian about specific foods you should avoid based on the type of kidney stones youhave and your overall health. Fruits Grapefruit. The item listed above may not be a complete list of foods and beverages you should avoid. Contact adietitian for more information. Summary Kidney stones are deposits of minerals and salts that form inside your kidneys. You can lower your risk of kidney stones by making changes to your diet. The most important thing you can do is drink enough fluid. Drink enough fluid to keep your urine pale yellow. Talk to your dietitian about how much calcium you should have each day, and eat less salt and animal protein as told by your dietitian. This information is not intended to replace advice given to you by your health care provider. Make sure you discuss any questions you have with your health care provider. Document Revised: 01/29/2022 Document Reviewed: 01/29/2022 [employer] Patient Education 2022 [employer]. Follow Up Care 05/07/2022 16:35:27 With:DARVIN MARTINEZ, Maddi Mary, URL Address: [address] [place] [address]- When: Unknown [facility] 02-03-2023 Nurse Note* Dione Clark RN - 07/06/2022 9:[address] procedure cancelled per Dr. Zarate. Patient to go to Registration for MRI procedure. IV to stay in place for MRI use. documented in this encounterU [facility] [place] Nurse Surgical operation note* Dione Clark RN - 07/06/2022 9:[address] procedure cancelled per Dr. Zarate. Patient to go to Registration for MRI procedure. IV to stay in place for MRI use. [facility]02-03-2023 Hospital Discharge instructions* Discharge Instructions* Sumi Nunn, SHEEP [employer] INSTALLATION FOREMAN - 07/06/2022 8:54 AM EST Home Care after Sedation You have been given medicines during your procedure that might make you sleepy. To prevent problems: 1. Rest for the remainder of the day. You should have someone drive you home and be available for the next [address] today. 3. Do not drink alcoholic beverages today. 4. Do not make any important business or legally binding decisions today. 5. Do not work around the stove, machinery or power equipment today. 6. The medicines used for sedation may make you feel nauseated. Start with clear liquids, which is anything that you can see through such as tea, jello, broth and pari ashlie. As you feel better you may add soft foods such as pudding and ice cream. When you no longer feel nauseated you may try your normal diet. You should be back to eating your normal meals after 24 hours. Home Care after Your Biopsy Today you had a biopsy of your right hip area. 1. Go home without making any stops along the way. Rest in bed or on the couch until the next morning. Keep stair climbing to a minimum. Do not drive until the day after your biopsy. 2. Wait until the next morning to shower or take a tub bath. If you want to clean up after the biopsy, take a sponge bath. 3. Remove the band aide the morning after the biopsy. As you shower or bathe, wash the site gently and pat it dry. Do not scrub the site. Watch for signs of infection such as redness, swelling, warmth or pus from the site or a fever over 100 degrees F (38 degrees Celsius). Call your [facility] doctor if you have signs of infection. 4. Limit your activity for the next 24 hours, no jogging or contact sports. Do not lift or push objects over 10 pounds for 1 to 2 days. If your usual activities involve heavy lifting, ask your doctorwhat is safe for you. 5. Ask your doctor when you may return to work. Problems you may have and what to do to help Bleeding from the biopsy site: Lie down. Hold a pad firmly over the site for 5 to 10 minutes. Continue to lie quietly for one hour after the bleeding has stopped. After one hour, get up slowly to avoid getting lightheaded and keep activity to a minimum. If bleeding occurs a second time, follow the above steps. If you are not able to stop the bleeding,call 911 or the emergency squad. Pain: You may have some discomfort. If it becomes stronger or if it is continuous, call your doctor. Other Instructions Call your doctor's office for a follow-up appointment if you do not already have one scheduled. Interventional Radiology Contact Information If you have questions or concerns, please call Interventional Radiology at After-Hours or on Weekends, please call the [facility] at [phone] and ask them for the Interventional Tank Truck Loader On-Call documented in this [facility] Reason for referral (narrative)* (Emergency)SpecialtyDiagnoses / ProceduresReferred By ContactReferred To Contact Lee Jean MD [address] [place] [address] 4th [place] [address] Referral IDStatusReasonStart DateExpiration DateVisits RequestedVisits Authorized * Radiology (Routine) - ClosedSpecialtyDiagnoses / ProceduresReferred By Contact Referred To Contact Diagnoses Endometrial cancer Pelvic mass Procedures NUC PET OTHER CHG NUC THERAPY HYPERTHYROID SUBSEQUENT Yue Alanis MD [address] [place] [address] Referral IDStatusReasonStart DateExpiration DateVisits RequestedVisits [id number]/12/20221/ [facility]01-09-2023 Consult note* Nely Alan RN - 06/11/2022 3:00 PM EST Consults Consults Vascular Access Consult Note Assessment: Patient seen and evaluated for peripheral IV insertion using ultrasound guidance. ID band present, allergies verified and patient/nurse questioned of limb precautions. Skin integrity within normal limits at time of insertion. No evidence of ecchymosis, infiltration, hematoma, or any condition that would prevent safe insertion of a peripheral IV with ultrasound. Insertion 1. Ultrasound guided access: 20 gauge 1.75 length Nexiva catheter inserted into right upper cephalic. Peripheral IV placed per aseptic technique under ultrasound guidance. Positive blood return, flushes easily without symptoms, occlusive dressing applied. Patient tolerated procedure well. []Obtained labs. [x]Call light. [x]Bed locked. [x]Bed low. [x]Tray table within reach. [x]Physician and fire investigator notified of the above Education Patient/Family informed to notify nurse of any complications including pain, redness, swelling, or leaking post-insertion. Thank you for allowing our team to participate in the care of this patient. Vascular Access Team [phone] [facility]01-09-2023 Consult note* Nely Alan RN - 06/11/2022 3:00 PM EST Consults Consults Vascular Access Consult Note Assessment: Patient seen and evaluated for peripheral IV insertion using ultrasound guidance. ID band present, allergies verified and patient/nurse questioned of limb precautions. Skin integrity within normal limits at time of insertion. No evidence of ecchymosis, infiltration, hematoma, or any condition that would prevent safe insertion of a peripheral IV with ultrasound. Insertion 1. Ultrasound guided access: 20 gauge 1.75 length Nexiva catheter inserted into right upper cephalic. Peripheral IV placed per aseptic technique under ultrasound guidance. Positive blood return, flushes easily without symptoms, occlusive dressing applied. Patient tolerated procedure well. []Obtained labs. [x]Call light. [x]Bed locked. [x]Bed low. [x]Tray table within reach. [x]Physician and fire investigator notified of the above Education Patient/Family informed to notify nurse of any complications including pain, redness, swelling, or leaking post-insertion. Thank you for allowing our team to participate in the care of this patient. Vascular Access Team [phone] documented in this encounterOSU [facility] [place] Hospital Discharge instructions Patient Education 05/07/2022 16:27:52 EU - Cystoscopy with Stent Removal Discharge Instructions (Custom) Cystoscopy with Stent Removal Voiding after the procedure: there may be some pain, burning, urgency, frequency and blood tinged urine following the procedure. These symptoms usually resolve within 2-5 days. Drink the amount of fluid it takes to keep the urine pink to yellow or clear in color. Drinking enough water and fluids will help to ease any discomfort after your procedure. If you are having problems that seem out of the ordinary, please call. If unable to contact your physician and you feel it is an emergency, go to the nearest emergency room or call 911 Diet you may resume your normal diet. Activity you may resume your normal activities Call if you have a fever over 100 degrees. Follow Up Care 04/19/2022 09:23:50 With:Maddi CALLAWAY Address: [address] [place] [address] [facility] (1) When:6 months Comments:Call for followup appointment with an abdominal x-ray prior to your visit.Currently the stone analysis has not yet been sent to me from the [facility]. Hopefully we will have this by the end of the week and let you know.As discussed at any time we can perform the blood work and have the 24-hour urine collection in the hopes of trying to figure out why you are making stones.I did check the CT scan report and there are no documented other stones within the kidneys themselves.Have a great day [facility]12-05-2022 Evaluation + Plan noteExtracted from: Title:EU Local Cysto w/ Right Stent Removal - FTAuthor:Maddi CALLAWAY MD PDate: 05/07/22 Patient: JULITA SILVA Age: 66 years Sex: Female : 1955 Associated Diagnoses: None Author: Maddi CALLAWAY MD Procedure Operative Information Details: Date/ Time: 05/07/2022 16:28:00. Pre-Op Dx: Foreign Body in Bladder - T19.1XXA. Post-Op Dx: Same. Anesthesia Type: Local. Procedure: Local Cystoscopy with Stent Removal. Complications: None. Risks/Benefits/Informed Consent: Surgical risks, benefits, details of the procedure have been explained to the patient, Full informed consent has been obtained. Intraoperative Information Prepped: The patient was prepped with the Betadine solution. Anesthesia: 2% Xylocaine Jelly per urethra. Procedure: Cystoscopy and Right Stent Removal, The flexible Cystoscope was passed in retrograde fashion into the bladder without difficulty, The bladder was viewed in entirety and found to be withouttumors or stones, Mild inflammation was seen surrounding the orifice with the stent seen protrudingfrom it, The stent was then grasped and removed in its entirety. Specimens Removed: None. Devices Implanted: None. Postoperative Information Discharge: The patient tolerated the procedure well and was subsequently discharged home, F/U six months with KUB. .Addendum by Maddi CALLAWAY MD on May 07, 2022 16:35 ESTDx: Right pelvic mass Personal history of ovarian cancer Advised the patient to get a copy of her CT scan from the [facility] so she can take this with her to her next oncology appointment. Apparently she had seen a cancer physician at the [facility] in [place] but did not have a copy of her CT scan or her CT scan CD. Future Appointments Appointment Date:11/07/2022 10:30:00 AM Scheduled Provider:Maddi CALLAWAY MD Location:[facility] Appointment Type:URO Office Visit [facility]11-29-2022 History of Present illness Narrative* Roslyn Peck RN - 05/01/2022 1:45 PM EST 1430-Pt is here for her annual F/U that has been moved up a month d/t new findings of a mass at [facility]. Pt reports that she fell at home 04/14/22 d/t her leg was numb. She went toher local ED 3 days later to be examined-CT scans were done-found kidney stone and amass per pt. Pthad procedure 04/17/22 stone removal and stent placement and was instructed to F/U with Dr Alanis d/t new findings of a mass. Pt denies any pain assoc with mass or kidney stone. Pt does report extremefatigue in her left leg. States she would not have known anything was wrong had she not fallen. Pt states she went to vascular MD workup was negative for any issues.Pt tearful r/t diagnosis, states she has had 3 different cancer. * Danellelona Garcia, SHEEP [employer] INSTALLATION FOREMAN - 05/01/2022 1:45 PM EST Subjective: History of present illness: Patient Active Problem List HEWITT (dyspnea on exertion) Bilateral leg edema Hip pain Fatigue HTN (hypertension) Morbid obesity 08/19/12: Body mass index is 65.97 kg/meters squared. 03/10/13: Body mass index is 61.77 kg/meters squared. 06/16/13: Body mass index is 63.34 kg/meters squared. 10/06/13:Body mass index is 64.33 kg/meters squared. Endometrial cancer 12/05/10: Robotic hysterectomy, bilateral salpingo-oophorectomy and pelvic lymph node dissection: Stage IA (21% myometrial invasion), grade 1 endometrial cancer. 09/12/12: Vaginal cuff biopsies: Moderately differentiated adenocarcinoma consistent with endometrial primary. 12/12/2012: Completed external beam radiation and vaginal brachytherapy 11/09/14: Recurrence diagnosed at vaginal cuff 12/02/14: Vaginal mass resection: Moderately differentiated endometrial cancer. 12/14/14: Megace/Tamoxifen. Interim history since last visit: Patient is here s/p fall on 04/15/22 in [facility] ER ([facility]). Had CT scans that showed kidney stone elias pelvic mass. States records were supposed to be sent to [facility] from [facility]. On 04/17/22 had stent placed in kidney. On antibiotics for this and has FU with nephrology (Dr Callaway) on 05/08/22. Patient feels well. Denies any new complaints. Denies abdominal pain, n/v/d/c, urinary complaints, or vaginal bldg/discharge. Denies fatigue, appetite changes. Past Medical History: Diagnosis Date Diabetes mellitus Endometrial cancer HTN (hypertension) Kidney stone 04/17/2022 morbid obes 356 # Past Surgical History: Procedure Laterality Date RENAL STENT PLACEMENT Right 04/17/2022 REMOVAL CATARACT WITH INSERTION INTRAOCCULA Right 07/2021 EXTRACTION EXTRACAPSULAR CATARACT W/ IMPLANT (ECCE IOL) Left 02/08/2021 Mejia Fine BX VAGINA EXTENSIVE Midline 12/02/2014 Laterality: Midline; Surgeon: Jeana Roque MD; Location: [facility] MAIN OR EXAM UNDER ANESTHESIA PELVIC Midline 09/12/2012 Laterality: Midline; Surgeon: Jeana Roque MD; Location: [facility] MAIN OR BX VAGINA SIMPLE Midline 09/12/2012 Laterality: Midline; Surgeon: Jeana Rouqe MD; Location: [facility] MAIN OR HYSTERECTOMY SUBTOTAL ABDOMINAL ROBOTIC W/ REMOVAL TUBES/OVARIES 2010 DILATION AND CURETTAGE REFRACTIVE SURGERY TUBAL LIGATION OB History 3 Para 2 Term 2 0 AB 1 Living 2 SAB 1 IAB Ectopic Molar Multiple Live Births Obstetric Comments Menarche 11, menopause at 49. H/o regular monthly heavy cycles. OCPx1 year. No HRT. No abnormal papsmears. Family History Problem Relation Age of Onset Breast Cancer Maternal Grandmother 89 Hypertension Mother Colorectal Cancer Neg Hx Ovarian Cancer Neg Hx Uterine Cancer Neg Hx Social History Socioeconomic History Marital status: Spouse name: Not on file Number of children: Not on file Years of education: Not on file Highest education level: Not on file Occupational History Occupation: algebra teacher Employer: [employer] Tobacco Use Smoking status: Never Smokeless tobacco: Never Vaping Use Vaping Use: Never used Substance and Sexual Activity Alcohol use: Yes Comment: social Drug use: No Sexual activity: Yes Other Topics Concern Not on file Social History Narrative Not on file Social Determinants of Health Financial Resource Strain: Not on file Food Insecurity: Not on file Transportation Needs: Not on file Physical Activity: Not on file Stress: Not on file Social Connections: Not on file Intimate Partner Violence: Not on file Housing Stability: Not on file Current Outpatient Medications: ciprofloxacin 500 MG tablet, , Disp: , Rfl: gliMEPIride 1 MG Tab, Take 1 mg by mouth daily every morning., Disp: , Rfl: lisinopril 40 MG Tab, take 40 mg by mouth at bedtime., Disp: , Rfl: megestrol 40 MG tablet, Take 2 tablets by mouth 2 times daily., Disp: 168 tablet, Rfl: 4 metformin 500 MG Tab, take 500 mg by mouth 2 times daily with meals.., Disp: , Rfl: metoprolol succinate 25 MG PO tablet XL, Take 50 mg by mouth 2 times daily. Taking 2 tabs in the morning and 1 tab in the evening., Disp: , Rfl: Multiple Vitamin (MULTI-VITAMIN PO), take 1 Tab by mouth every morning before breakfast., Disp: , Rfl: Naproxen Sodium (ALEVE PO), take 2 tablets by mouth as needed.. Reported on 09/11/2016 , Disp: , Rfl: oxybutynin 5 MG Tab, take 5 mg by mouth 3 times daily.., Disp: , Rfl: tamoxifen 20 MG tablet, Take 1 tablet by mouth 2 times daily. Alternate 3 weeks on 3 weeks off withmegace, Disp: 84 tablet, Rfl: 4 Allergies Allergen Reactions Eggs [Egg Phospholipids] Hives Sulfa Antibiotics Hives Health Maintenance: Last mammogram: November 2018-normal Last colonoscopy: Never Review of Systems: Constitutional: negative for chills, fever, and weakness; negative for fatigue Skin: negative for lesions/rashes, and itching Neurological: negative for dizziness and headache. Negative for sensory change Hematology/Lymphatics: negative for easy bruising and easy bleeding Eyes: negative for blurred vision or vision loss ENT/Mouth: negative for tinnitus and hearing loss Cardiovascular: negative for chest pain, HEWITT, palpitations. Positive for bilateral leg swelling Respiratory: negative for cough, shortness of breath, or wheezing Gastrointestinal: negative for abdominal pain, bloating, constipation/diarrhea, and nausea/ vomiting. Denies appetite changes. Genitourinary: negative for dysuria, incontinence, or vaginal bleeding Musculoskeletal: negative for back pain and joint pain Psychiatric: negative for depression and nervous/anxious Objective: Physical Exam BP 182/79 (BP Location: Left arm, BP Position: Sitting) Pulse 100 Temp 98.2 F (36.8 C) (Oral) Resp 20 Ht 1.549 m (5' 0.98 ) Wt (!) 139.2 kg (306 lb 12.8 oz) SpO2 96% BMI 58.00 kg/m Smoking Status Never Wt Readings from Last 3 Encounters: 05/01/22 (!) 139.2 kg (306 lb 12.8 oz) 05/16/21 (!) 137.1 kg (302 lb 3.2 oz) 05/17/20 132.9 kg (293 lb) General: Alert, no distress. obese Head: Normocephalic, without obvious abnormality Oropharynx: Normal findings Neck: No adenopathy thyroid not enlarged, symmetric, no tenderness/mass/nodules Back: negative Lungs: Clear to auscultation bilaterally Heart: Regular rate and rhythm, S1, S2 Normal, no murmur, click, rub or gallop Abdomen: Soft, non-tender, bowel sounds normal, no masses, no organomegaly Gynecological: External genitalia normal, urethral meatus normal size, urethra and bladder palpablynormal. Vagina: no lesions, Cervix, uterus and adnexa are surgically absent and no masses on bimanual examination. Rectal examination confirmatory. Extremities: Extremities normal, atraumatic, no cyanosis; 1+ BLE edema Skin: Skin color, texture, turgor normal. No rashes, or lesions Neurologic: Grossly normal Lymph Nodes: Cervical, supraclavicular, and inguinal nodes normal Assessment/Plan: Julita Silva is a 66 y.o. female with recurrent endometrial cancer and is currently on tamoxifen/megace (since 12/2014) . She is here s/p CT scan at OSH ED show pelvic mass. Unfortunately, we did not receive records prior to this patient visit and we were not aware that her follow up was more than for surveillance. We plan to obtain the records and have the patient follow up via telemedicine so she does not need to make the drive back to [place]. We discussed based onher imaging will determine if surgical resection, further imaging, biopsy, or observation is appropriate. She had many questions all of which were answered. She would like to proceed in this manner. Hypertension: Continues to be asymptomatic, normal at home. Plan: Will follow up with patient via televisit after obtaining records from outside hospital Danelle Garcia APRN-[employer] I saw and independently evaluated this patient today. I discussed my findings and the therapeutic plan with EDWARD Hagen. I have reviewed, repeated or observed the pertinent aspects of the history, physical examination, and have developed the assessment and plan as indicated and edited above. I provided a substantive portion of the care for this patient. I personally performed all aspects of the medical decision making for this encounter. I have reviewed and verified this documentation and it accurately reflects our care. Of note, both the EDWARD and I saw and evaluated the patient together. The EDWARD documented the note and I edited it as needed. Time spent for the appointment was 31 minutes in review of records, review of diagnostic testing, other provider notes, coordination of care, meeting with team to discuss the patient and the above, charting, and face to face time with thepatient on the same day as the visit. Yue Alanis M.D. Client Architect Division of Gynecology Oncology [facility] NotePROCEDURE: CT LSPINE WO CON COMPARISON: None. HISTORY: Traumatic injury TECHNIQUE: Axial, Coronal, and Sagittal CT images obtained without IV contrast. Dose reduction techniques were achieved by using automated exposure control and/or adjustment of mA and/or kV according to patient size and/or use of iterative reconstruction technique. FINDINGS: PARASPINAL AREA: Normal with no visible mass. DISCS: Moderate to severe multilevel disc space narrowing with vacuum disks most significant at L3-S1. BONES: Rotatory levoscoliosis. Moderate degenerative spondylosis and facet osteoarthropathy. Multilevel foraminal stenosis OTHER: Moderate right perinephric stranding with hydroureteronephrosis IMPRESSION: Moderate right perinephric stranding with hydroureteronephrosis. Distal obstructive uropathy should be considered Moderate to severe degenerative changes with no acute bony abnormality Electronically authenticated by: VERÓNICA KRUSE Date: 2022-04-16 10:39[facility]11-14-2022 NoteOPERATIVE NOTE OPERATION DATE: 04/17/2022 PREOPERATIVE DIAGNOSIS: 1. Right hydronephrosis with distal ureteral calculus. 2. IVY with creatinine up to 1.8. 3. Right pelvic mass on CT scan. 4. History of ovarian cancer. POSTOPERATIVE DIAGNOSIS: 1. Right hydronephrosis with distal ureteral calculus. 2. IVY with creatinine up to 1.8. 3. Right pelvic mass on CT scan. 4. History of ovarian cancer. PROCEDURE: 1. Cystoscopy. 2. Right ureteroscopy with basket extraction large right distal ureteral calculus (about 8 mm in size). 3. Placement right double J stent under fluoroscopic imaging. SURGEON: Matthew Cook, M.D. COMPLICATIONS: None. ANESTHESIA: General LMA, 2% Xylocaine jelly per urethra. INDICATIONS: Ms. Silva is a 66-year-old, morbidly obese female who presented with some hip pain and was found to have, by CT scan, significant right hydronephrosis with a distal right ureteral stone, and also the presence of a right pelvic mass. She has a history of ovarian cancer. Urologic consultation requested secondary to the obstructing stone. She understands the risks, benefits and details of the procedure, with my recommendation for cystoscopy and a retrograde approach with, hopefully, a stone extraction and a double j stent placed. Informed consent was obtained and the patient and her family wanted me to proceed. She has already been on intravenous antibiotics. PROCEDURE: The patient was brought back to the operating room and, after the successful induction of general anesthesia, she was placed in the modified dorsolithotomy position. She was prepped in the usual fashion with Betadine solution and draped appropriately. Pressure points were padded. SCDs were in place as noted. A 22-Finnish cystourethroscope was then passed into the bladder. The bladder was emptied and had to be irrigated several times. I suspect she has a UTI. Once the bladder was cleared, foss endoscopy revealed no tumors or obvious stones in the bladder itself. Left orifice is normal. The right orifice demonstrates edema and erythema, as there is the beginning of a stone protruding from that orifice. I attempted to manipulate the stone with the stone basket, but this could not be accomplished. I pushed the stone back into the ureter, simply with the scope and with that, a fair amount of white sediment was coming from the right orifice, following by jets of urine, which were not as cloudy. I elected to perform distal ureteroscopy. A 0.035 Guidewire was passed up the ureteral orifice into the upper kidney. Cystoscope was removed. The semi-rigid ureteroscope was then passed into the bladder and up the distal aspect of the ureter. The stone was encountered and basketed free with a 4 flat wire stone basket. This measures about 8 mm in size. I performed distal ureteroscopy, just to the mid aspect of the pelvic ureter, to make sure no other stones or obvious abnormalities existed and they did not. I did not push any undue pressure on the fluid, so as not to push infection proximally. With the wire mesh in place and the stone removed, I elected to place an indwelling stent for maximal drainage of the kidney. The safety wire was left in place. The cystoscope was backloaded over the wire, and the 4.8-Finnish 22-30 cm Microvasive double J stent was passed into the right kidney. Wire removed and there was good curl within the kidney and urinary bladder. She tolerates it well. Bladder was emptied and the procedure was terminated. She transferred to the rhelena and then back to PACU in satisfactory condition, stable vital signs. Plan will be for transfer to the floor for postoperative management. I let the patient's family know that it is my opinion the patient was just about to have more complications from this obstructing stone in the presence of a presumed UTI. They were happy to hear that the stone was removed and the stent is placed. Tentative plan is for stent removal in the outpatient setting within the next 2- 3 weeks or so, depending on whether or not she gets an appointment at the [facility] in [place]. Further recommendations regarding the newly found right sided pelvis mass in the face of prior ovarian cancer still has yet to be elucidated. CC: Shu Funk M.D.[facility]03-08-2022 NoteHNO ID: [id number] Author: Sage Diaz MD Service: ? Author Type: Physician Type: Progress Notes Filed: 08/08/2021 1:12 PM Note Text: (Z96.1) Pseudophakia (primary encounter diagnosis) Comment: 1 MONTH POST-OP CATARACT SURGERY OD (mature lens) - Doing well, vision limited by corneal scarring 2/2 complication from remote LASIK surgery Plan: D/C Prednisolone - Call GENARO if new signs/symptoms/pain/vision loss - Follow up 1 year NEXT VISIT ORDERS 1 YEAR POST-OP VISION OU MRX OU IOP OU DILATED FUNDUS EXAM OU I have confirmed and edited as necessary the relevant ophthalmic history, ROS, and the neuro exam findings as obtained by others. I have seen and examined this patient. I have discussed the case and the management of this patient's care with the Resident/Fellow, if applicable. I also have reviewed and agree with the assessment and plan as stated above and agree with all of its relevant components. Sage Diaz, [facility]02-15-2022 NoteHNO ID: [id number] Author: Sage Diaz MD Service: ? Author Type: Physician Type: Progress Notes Filed: 07/18/2021 1:24 PM Note Text: (Z96.1) Pseudophakia (primary encounter diagnosis) Comment: 1 WEEK POST-OP CATARACT SURGERY OD 07/10/21 - Doing well Plan: - Taper PREDNISOLONE ACETATE 1% TID x 1 week BID x 1 week QD x 1 week then STOP - Ketorolac 0.5% QID operative eye until gone - stop gentamicin - Routine precautions discussed - D/c shield - Call GENARO if new signs/symptoms/pain/vision loss - Follow up 3 weeks NEXT VISIT ORDERS 1 MONTH POST-OP VISION OU MRX OU (target -2D OD) IOP OU DILATED FUNDUS EXAM OPERATIVE EYE PCO OD Observe for now Possible YAG in future if becomes visually significant agree as per above doing well., patient happy with result so far follow-up as scheduled I have confirmed and edited as necessary the relevant ophthalmic history, ROS, and the neuro exam findings as obtained by others. I have seen and examined this patient. I have discussed the case and the management of this patient's care with the Resident/Fellow, if applicable. I also have reviewed and agree with the assessment and plan as stated above and agree with all of its relevant components. Sage Diaz, [facility]02-08-2022 NoteHNO ID: [id number] Author: Sage Diaz MD Service: ? Author Type: Physician Type: Progress Notes Filed: 07/11/2021 9:21 AM Note Text: (Z96.1) Pseudophakia (primary encounter diagnosis) Comment: 1 DAY POST-OP CATARACT SURGERY OD -Doing well - PREDNISOLONE ACETATE 1% QID operative eye - Ketorolac 0.5% QID operative eye - gentmaicin QID OD - Routine precautions discussed - Shield at bedtime - No strenuous activity - Call GENARO if new signs/symptoms/pain/vision loss - Follow up 1 week EPILATE RUL NEXT VISIT ORDERS 1 WEEK POST-OP: VA OU QUICK MRX OPERATIVE EYE ONLY (may be difficult to improve with refraction, target was approx -2 D) IOP OU NEXT VISIT ORDERS 1 MONTH POST-OP VISION OU MRX OU IOP OU DILATED FUNDUS EXAM OPERATIVE EYE Spike Calero MD Ophthalmology Resident I have confirmed and edited as necessary the relevant ophthalmic history, ROS, and the neuro exam findings as obtained by others. I have seen and examined this patient. I have discussed the case and the management of this patient's care with the Resident/Fellow, if applicable. I also have reviewed and agree with the assessment and plan as stated above and agree with all of its relevant components. Sage Diaz, [facility]10-19-2021 NoteHNO ID: [id number] Author: Sage Diaz MD Service: ? Author Type: Physician Type: Progress Notes Filed: 03/24/2021 11:23 AM Note Text: Encounter Diagnosis ICD-10-CM 1. Total, mature senile cataract H25.89 BSCAN OD (RIGHT EYE) 2. 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 Pseudophakia Z96.1 4. Age-related nuclear cataract of right eye H25.11 5. 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 Dermatochalasis of both upper eyelids H02.831 H02.834 9. Other vitreous opacities, right eye H43.391 BSCAN OD (RIGHT EYE) 10. Hx of LASIK Z98.890 s/p LASIK 2005 in both eyes - per patient had immediate problems OD, per treating doctor 1 in 500,000 complication, nothing could be done - appearance is suggestive of temporal flap melt (thinning with scarring following temporal flap margin) rather than post-lasik ectasia - +irreuglar astigmatism, not interested in any contact lens ooptions + nasal symblepharon OD - unclear significance but raises concern about wound healing with any PKP procedure s/p PCIOL OS, excellent outcome (Dr. Judd)- Mild PCO +mature cataract OD - good dilation, Bscan normal, need trypan blue, inf-temporal wound with limbal or anterior scleral tunnel approach to avoid mid-peripheral thinning - discussed that cataract surgery would improve vision but still remain limited due to corneal shape + floppy eyelids, dermatochalasis ou long discussion re: options-- favor ce/iol alone as PKP would be high risk, concern for wound healing issues, would need eccentric/large graft temporally to encompass area of thinning offer complex ce/iol OD (complicating factors mature lens, poor red reflex, cornea thinning) patient prefers to have cataract done locally if possible, discussed that Dr. Judd may prefer done here based on cornea letter to Dr. Judd -- can treat cataract locally (mature lens with corneal thinning) if Dr. Judd prefers, can perform ce/iol with me I have confirmed and edited as necessary the relevant ophthalmic history, ROS, and the neuro exam findings as obtained by others. I have seen and examined this patient. I have discussed the case and the management of this patient's care with the Resident/Fellow, if applicable. I also have reviewed and agree with the assessment and plan as stated above and agree with all of its relevant components. Sage Diaz MD addendum: patient requests have sx at [facility] Cataract Presurgical Documentation Cataract: Right eye (OD) Patient reported symptoms: Associated symptoms Positive for: Blurred Vision, decreased vision, difficulty with driving, difficulty with reading, difficulty with watching television Negative for: Photophobia, flashes, floaters, glare Current Visual Acuity: Right Eye Distance SC HM Left Eye Distance SC 20/30 Glare Testing: Visual Function: Julita Silva states that the decline in vision from the cataract impedes the ability to drive and to read as well as other activities of daily living. Julita Silva has confirmed that she is no longer able to function adequately on a day-to-day basis because of her current visual condition. Further, it is my medical opinion that the cataract is the primary cause, or at least a significantly contributory cause of her visual dysfunction. With uncomplicated cataract surgery and lens implantation, it is my expectation that her visual function and quality of life will improve, significantly. The risks, benefits, alternatives, personnel and complications of cataract surgery with lens implantation were discussed with Julita Silva in detail. she appeared to understand and asked that I proceed with plans for surgery. mature lens plan inf/temporal wound, limbal tunnel or anterior scleral wound large rexis, trypan blue + healon 5 consider miloop jg to perform discussed increased risk of complications, limitations 2/2 irregular astigmatism I have confirmed and edited as necessary the relevant ophthalmic history, ROS, and the neuro exam findings as obtained by others. I have seen and examined this patient. I have discussed the case and the management of this patient's care with the Resident/Fellow, if applicable. I also have reviewed and agree with the assessment and plan as stated above and agree with all of its relevant components. Sage Diaz, [facility] Future Appointments Appointment Date:05/29/2023 09:15:00 AM Scheduled Provider:Maddi CALLAWAY MD Location:[facility] Appointment Type:URO Office Visit Future Scheduled Tests Radiology* US Renal 11/07/22 [facility] Evaluation + Plan note Future Appointments Appointment Date:05/29/2023 09:15:00 AM Scheduled Provider:Maddi CALLAWAY MD Location:[facility] Appointment [facility] Future Appointments Appointment Date:06/24/2024 10:30:00 AM Scheduled Provider:Maddi CALLAWAY MD Location:[facility] Appointment Type:URO Office Visit Diagnostic Tests Pending * Urine Culture 05/29/23 Future Scheduled Tests Radiology* US Renal 05/29/23 * [facility] Future Appointments Appointment Date:06/24/2024 10:30:00 AM Scheduled Provider:Maddi CALLAWAY MD Location:[facility] Appointment Type:URO Office Visit Future Scheduled Tests Radiology* US Renal [facility] Future Appointments Appointment Date:08/21/2024 01:50:00 PM Scheduled Provider:SANGEETA Summers APRN, Marsha X Location:[facility] Appointment Type:URO Office Visit Future Scheduled Tests Radiology* US Renal 04/03/24 [facility] Evaluation note* Diagnosis Endometrial cancer- Primary Malignant neoplasm of corpus uteri, except isthmus [facility] Diagnosis Endometrial cancer Malignant neoplasm of corpus uteri, except isthmus Pelvic mass Abdominal or pelvic swelling, mass or lump, unspecified site [facility] Diagnosis Bone lesion Disorder of bone and cartilage, unspecified [facility] Diagnosis Endometrial cancer Malignant neoplasm of corpus uteri, except isthmus Pelvic mass Abdominal or pelvic swelling, mass or lump, unspecified site [facility] Diagnosis Endometrial cancer- Primary Malignant neoplasm of corpus uteri, except isthmus Pelvic mass Abdominal or pelvic swelling, mass or lump, unspecified site [facility] encounter [facility] noteNo assessment information available [facility] Work Phone: Evaluation noteNo InformationNortWellSpan [facility] Other Evaluation note* Diagnosis Endometrial cancer- Primary Malignant neoplasm of corpus uteri, except isthmus Encounter for monitoring adjuvant hormonal therapy Encounter for therapeutic drug monitoring documented [facility] this [facility] Narrative - Reported* Type Description Date Medical History ovarian cancer Surgical HistorylasikSurgical Historyhysterectomy [facility] Other Hospital course Narrative No data available for this section [facility] No data available for this section [facility] No data available for this section [facility] Summary Purpose Family History No Family History Records FoundNo Family History Records Found No data available for this section No data available for this section No Family History Records FoundNo Family History Records Found No data available for this section No Family History Records Found Advance Directives No Advanced Directives Records FoundLatest Code Status on File Code StatusDate ActivatedDate InactivatedCommentsFull Code-Unverified12/02/2014 1:09 PM12/02/2014 6:46 PMCode StatusDate ActivatedDate InactivatedCommentsFull Code09/12/2012 11:47 AM09/12/2012 7:18 PMCode StatusDate ActivatedDate Inactivated CommentsFull Code-Unverified12/02/2014 1:09 PM12/02/2014 6:46 PMCode StatusDate ActivatedDate InactivatedCommentsFull Code09/12/2012 11:47 AM09/12/2012 7:18 PM Advance Directive Response Recorded Date/ Time Advance Directives No April 12:24pm Date ActivatedDate InactivatedComments12/02/2014 1:09 PM12/02/2014 6:46 PMDate ActivatedDate InactivatedComments09/12/2012 11:47 AM09/12/2012 7:18 PM Reason for Referral SpecialtyDiagnoses / ProceduresReferred By ContactReferred To Contact Diagnoses Endometrial cancer Procedures CT ABDOMEN/PELVIS WITH CONTRAST CHG CT SCAN,ABDOMENT AND PELVIS,W CONTRAST Danelle Garcia, SHEEP BONER-[employer] [address] [place] [address] Referral IDStatusReasonStart DateExpiration DateVisits RequestedVisits [id number] Not Needed/[id number] / ProceduresReferred By ContactReferred To Contact Diagnoses Bone lesion Procedures CT DEEP BONE (VERTEBRAL BODY, FEMUR) BIOPSY MS CT GUIDANCE NEEDLE PLACEMENT MS BONE BIOPSY,TROCAR/NEEDLE DEEP Yue Alanis MD [address] [place] [address] Referral IDStatusReasonStart DateExpiration DateVisits RequestedVisits [id number] Request/ Chief Complaint and Reason for Visit Chief Complaint cirrhosis Fatty Liver, Cirrhosis Additional Source Comments INFORMATION SOURCE (unrecogn ized section and content) DATE CREATED AUTHOR 08/28/2021 [facility] DATE CREATED AUTHOR AUTHOR'S ORGANIZ ATION 04/26/2022 [facility] DATE CREATED AUTHOR AUTHOR'S ORGANIZ ATION 07/12/2023 [facility] DATE CREATED AUTHOR AUTHOR'S ORGANIZ ATION 03/02/2024 [facility] DATE CREATED AUTHOR AUTHOR'S ORGANIZ ATION 03/08/2025 [facility] Patient Care team informatio n (unrecognized section and content) Team MemberRelationshipSpecialtyStart DateEnd Date [facility], [facility] [address] [place] [address] PCP - General09/04/12Team MemberRelationshipSpecialtyStart DateEnd Date [facility], Other [address] [place] [address] PCP - General09/04/12Team MemberRelationshipSpecialtyStart DateEnd Date [facility], Other [address] [place] [address] PCP - General09/04/12Team MemberRelationshipSpecialtyStart DateEnd Date [facility], Other [address] [place] [address] PCP - General09/04/12Team MemberRelationshipSpecialtyStart DateEnd Date [facility], Other [address] [place] [address] PCP - General09/04/12 Team Status: Active Member Role Status Dates NON STAFF Primary Care Provider Active Team Status: Inactive Member Role Status Dates Mohsen Cohen MD Attending Provider Active NON STAFFPrimary Care ProviderActive Team Status: Inactive Member Role Status Dates NON STAFF Primary Care Provider Active Mohsen Cohen MDAttending ProviderActive Reason for Visit (unrecogniz ed section and content) ReasonCommentsFollow-upEndometrial CancerSpecialtyDiagnoses / ProceduresReferred By ContactReferred To Contact Diagnoses Endometrial cancer Pelvic mass Procedures NUC PET OTHER CHG NUC THERAPY HYPERTHYROID SUBSEQUENT Yue Alanis MD [address] [place] [address] Referral IDStatusReasonStart DateExpiration DateVisits RequestedVisits [id number] / Procedures Referred By ContactReferred To Contact Diagnoses Bone lesion Procedures CT DEEP BONE (VERTEBRAL BODY, FEMUR) BIOPSY MS CT GUIDANCE NEEDLE PLACEMENT MS BONE BIOPSY,TROCAR/[place] [address] [place] [address] [place] [address] Referral IDStatusReasonStart DateExpiration DateVisits RequestedVisits [id number] Request/[id number] / Procedures Referred By ContactReferred To Contact Diagnoses Endometrial cancer Pelvic mass Procedures MRI PELVIS MSK WITH AND WITHOUT CONTRAST MRI PELVIS WITH AND WITHOUT CONTRAST MS MRI, PELVIS, COMBO Yue Alanis MD [address] [place] [address] Referral IDStatusReasonStart DateExpiration DateVisits RequestedVisits [id number]-ph FOR RECORDS PERTAINING TO PATIENTS WHO ARE OR HAVE BEEN ENROLLED IN A CHEMICAL DEPENDENCY/SUBSTANCEABUSE PROGRAM, SOME INFORMATION MAY BE OMITTED. This clinical summary was aggregated from multiple sources. Caution should be exercised in using it in the provision of clinical care. This summary normalizes information from multiple sources, and as a consequence, information in this document may materially change the coding, format and clinical context of patient data. In addition, data may be omitted in some cases. CLINICAL DECISIONS SHOULD BE BASED ON THE PRIMARY CLINICAL RECORDS. [facility]. provides no warranty or guarantee of the accuracy or completeness of information in this document.
--- OUTSIDE RECORDS SUMMARY | 2025-04-24 20:21 | XMS_ITS | Clinical Summary ---
Author Organization [employer] [facility] tem Address [id number] [address] [place] [address] Care Team Providers Care Geochemical Manager Name Role Phone Mart Holliday MD Primary Care Provider [phone] Allergies Active AllergyReactionsCriticalityNoted DtwoQubappxpOpxSwiitmr00/22/2015Sulfa (Sulfonamide Antibiotics)Hives09/25/2010 Medications MedicationSigDispense QuantityRefillsLast FilledStart DateEnd DateStatus tamoxifen (NOLVADEX) 20 mg chemo tablet Take 20 mg by mouth05/17/2021ctive megestroL (MEGACE) 40 mg chemo tablet Take 2 tablets by mouth 2 (two) times a day05/17/2021ctive metoprolol succinate XL (TOPROL XL) 25 mg 24 hr tablet Take 25 mg by mouth in the morning and 25 mg before bedtime.Active glimepiride (AMARYL) 2 mg tablet 03/16/2021ctive oxybutynin (DITROPAN) 5 mg tablet Take 5 mg by mouth.Active lisinopriL (PRINIVIL,ZESTRIL) 40 mg tablet 01/21/2022ctive metFORMIN (GLUCOPHAGE) 500 mg tablet Take 500 mg by mouth.Active Active Problems ProblemNoted DateDiagnosed DateBilateral leg edema02/28/2022Leg pain02/28/2022 Social History Tobacco UseTypesPacks/DayYears UsedDateSmoking Tobacco: Never Tobacco Cessation:Counseling Given: Not Answered Alcohol UseStandard Drinks/WeekCommentsNever0 (1 standard drink = 0.6 oz pure alcohol)ChildcareAnswerDate PsidrkcxAgadnebtxCnuznck15/12/2019EmploymentAnswer Date DpkednakNzhkuchmfcAhpcyme08/12/2019Purpose - LifeAnswerDate RecordedPurpose and direction in drvuTzmevzb01/11/2021CommentsUnknownSex and Gender InformationValueDate RecordedSex Assigned at BirthNot on fileLegal SexFemale 01/06/2015 12:10 PM EDTGender IdentityNot on fileSexual OrientationNot on file Last Filed Vital Signs Vital SignReadingTime TakenCommentsBlood Olewvxol985/8404/25/2022 9:30 AM EST Ynkgs999104/25/2022 9:30 AM ESTTemperature--Respiratory Rate--Oxygen Bfuoepqrle57% 04/25/2022 9:30 AM ESTInhaled Oxygen Concentration--Xjhmcj187.3 kg (296 lb) 04/25/2022 9:30 AM KRGNvyugl670.5 cm (5' 2.01 )04/25/2022 9:30 AM ESTBody Mass Index54.13106/25/2021 9:30 AM EST Plan of Treatment Health MaintenanceDue DateLast DoneCommentsDepression Nfqqzwtbq42/24/1966Tobacco Unimxaekd50/24/1966Zoster (Shingles) Vaccine (1 of 2)11/25/2003RSV ( or age 60+ yrs) (1 - Risk 60-74 years 1-dose series)2013Fall Risk Screening 2018DTaP,Tdap and Td Vaccines (2 - Td or Tdap)/dult BMI Idbsawvfz632COVID-19 Vaccine ( season)2025 05/05/2021, 08/23/2020, 08/02/2020Influenza Duzjlbu7802/01/2025 Medical Devices Not on file Insurance [id number] [place] [address] Care Teams Team MemberRelationshipSpecialtyStart DateEnd Date Mart Holliday [facility]
--- OUTSIDE RECORDS SUMMARY | 2025-04-24 20:21 | XMS_ITS | Clinical Summary ---
Author Organization [facility] Address [address] [place] [address] Care Team Providers Care Sawmill Tally Clerk Name Role Phone Unavailable Primary Care Provider Unavailabl e Social History Tobacco UseTypesPacks/DayYears UsedDateSmoking Tobacco: Never Assessed CommentsUnknownSex and Gender InformationValueDate RecordedSex Assigned at Not on fileLegal QqlZrupgp25/15/2023 11:00 PM EDTGender IdentityNot on file Sexual OrientationNot on file Last Filed Vital Signs Vital SignReadingTime TakenCommentsBlood Pressure--Pulse--Temperature-- Respiratory Rate--Oxygen Saturation--Inhaled Oxygen Concentration--Weight-- Zdkzzf311.5 cm (5' 2 )01/26/2020 12:00 PM EDTBody Mass Index-- Plan of Treatment Not on file
--- OUTSIDE RECORDS SUMMARY | 2025-04-24 20:21 | XMS_ITS | Clinical Summary ---
Author Organization [facility] Address , [place] Care Team Providers Care Sinter Feeder Name Role Phone [facility], Other Primary Care Provi kiran Allergies Active AllergyReactionsCriticalityNoted DateCommentsEgg PhospholipidsHives 09/25/2010Sulfa HjflbkkeqceMrypt38/25/2011 Medications MedicationSigDispense QuantityRefillsLast FilledStart DateEnd DateStatus Multiple Vitamin (MULTI-VITAMIN PO) take 1 Tab by mouth every morning before breakfast.Active Naproxen Sodium (ALEVE PO) Take 2 tablets by mouth as needed. Reported on 09/11/2016Active metoprolol succinate 25 MG PO tablet XL Indications:Endometrial cancer,Fatigue,HTN (hypertension),ObeseTake 2 tablets by mouth 2 times daily. Taking 2 tabs in the morning and 1 tab in the evening. Active lisinopril 40 MG Tab Take 1 tablet by mouth at bedtime.Active metformin 500 MG Tab Take 1 tablet by mouth 2 times daily with meals.Active oxybutynin 5 MG Tab Take 1 tablet by mouth 3 times daily.Active gliMEPIride 1 MG Tab Take 1 tablet by mouth daily every morning.Active ciprofloxacin 500 MG tablet 04/18/2022ctive Allopurinol 100 MG tablet 01/30/2023ctive megestrol 40 MG tablet Indications:Endometrial cancer,Encounter for monitoring adjuvant hormonal therapyTake 2 tablets by mouth 2 times daily. 168 tablet 809ctive tamoxifen 20 MG tablet Indications:Endometrial cancer,Encounter for monitoring adjuvant hormonal therapyTAKE ONE TABLET BY MOUTH TWICE A DAY, ALTERNATE BETWEEN THREE WEEKS ON, THREE WEEKS OFF WITH MEGACE 84 tablet 801/02/2024Active Active Problems ProblemNoted DateDiagnosed DatePelvic mass3DOE (dyspnea on exertion) 11/25/2014Bilateral leg edema11/25/2014Hip pain06/16/20139013Djzbtoy39/24/2011HTN (hypertension)2010Morbid xdrpinf9911/24/2010 Overview (10/06/2013): 08/19/12: Body mass index is 65.97 kg/meters squared. 03/10/13: Body mass index is 61.77 kg/meters squared. 06/16/13: Body mass index is 63.34 kg/meters squared. 10/06/13:Body mass index is 64.33 kg/meters squared. Endometrial jjcitw4209/25/2010 Overview (05/19/2019): 12/05/10: Robotic hysterectomy, bilateral salpingo-oophorectomy and pelvic lymph node dissection: Stage IA (21% myometrial invasion), grade 1 endometrial cancer. 09/12/12: Vaginal cuff biopsies: Moderately differentiated adenocarcinoma consistent with endometrial primary. 12/12/2012: Completed external beam radiation and vaginal brachytherapy 11/09/14: Recurrence diagnosed at vaginal cuff 12/02/14: Vaginal mass resection: Moderately differentiated endometrial cancer. 12/14/14: Megace/Tamoxifen. Resolved Problems ProblemNoted DateDiagnosed DateResolved DateYeast infection involving the vagina and surrounding area Family History Medical HistoryRelationNameCommentsBreast CancerMaternal GrandmotherHypertension MotherColorectal CancerNeg HxOvarian CancerNeg HxUterine CancerNeg HxRelation NameStatusCommentsMaternal GrandmotherMother Social History Tobacco UseTypesPacks/DayYears UsedDateSmoking Tobacco: NeverSmokeless Tobacco: Never Tobacco Cessation:Counseling Given: Not Answered Alcohol UseStandard Drinks/WeekCommentsYes0 (1 standard drink = 0.6 oz pure alcohol)socialDepressionAnswerDate RecordedPHQ-9 Total Score (Interpretation of Total Score 1-4 = Minimal depression; 5-9 = Mild depression; 10-14 = Moderate depression; 15-19 = Moderately severe depression)4CommentsNo Sex and Gender InformationValueDate RecordedSex Assigned at BirthNot on file Legal ZcnCmmweu88/03/2013 6:46 PM ESTGender IdentityFemaleSexual OrientationNot on fileOccupationIndustryJob Start DateJob End Datepreschool teacherNot on file Not on fileNot on file Last Filed Vital Signs Vital SignReadingTime TakenCommentsBlood Vteumgmp014/7902/18/2024 10:39 AM EDT Uhtjd222602/18/2024 10:39 AM YOMZuqquxszaxb94 ??C (98.6 ??F)02/18/2024 10:39 AM EDTRespiratory Oysd098902/18/2024 10:39 AM EDTOxygen Rvarpsaqum38%02/18/2024 10:39 AM EDTInhaled Oxygen Concentration--Kfnvsj685.2 kg (300 lb 4.8 oz)02/18/2024 10:39 AM UBOXqlgqr348.5 cm (5' 2 )02/05/2023 2:29 PM EDTBody Mass Index54.93 02/05/2023 2:29 PM EDT Plan of Treatment Health MaintenanceDue DateLast DoneCommentsDEXA SCAN GHSHZXKZHH19/24/1954 HEPATITIS C VIRUS CLCGBKEFL78/24/1954ERVICAL CANCER SCREENING DISCUSSION 1974LIPID UYYELSFPO86/24/1994MAMMOGRAM SCREENING LQRJAZGAWF1994 COLORECTAL CANCER SCREENING NZPRLBLYJJ20/24/1511VPTQHWA83/02/202203/07/2011 COVID-19 VACCINE ( season)501/01/2024, 05/05/2021, 08/23/2020, Additional history existsINFLUENZA VACCINE (#1)02/01/2025TDAP (ADULT)Gytdtvdba83/02/2012PNEUMOCOCCAL VACCINE SAKXEUSopgllgba93/25/2023ZOSTER (SHINGLES) OGPTKXAIgqgfyczy51/21/2023, 10/25/2022RSV JLAELBDJbmjttkmf27/08/2024 HEP B VACCINEAged OutNo longer eligible based on patient's age to complete this topic Insurance Advance Directives For more information, please contact: [phone] (7:30 AM - 6PM [facility], Saturday-Saturday) * Full Code-Unverified (Latest Code Status on File) Date ActivatedDate InactivatedComments12/02/2014 1:09 PM12/02/2014 6:46 PM * Full Code Date ActivatedDate InactivatedComments09/12/2012 11:47 AM09/12/2012 7:18 PM Care Teams Team MemberRelationshipSpecialtyStart DateEnd Date [facility], Other [address] [place] [address] PCP - General09/04/12
--- OUTSIDE RECORDS SUMMARY | 2025-04-24 20:22 | XMS_ITS | Patient Health Record ---
Author Organization [facility] Address [address] [place] [address] Care Team Providers Care Assistant Controller Name Role Phone Laz Caraballo [phone] Allergies Allergen (clinical drug ingredient) Drug/Non Drug Allergy documented on EMR Reaction Allergy Type Onset Date Status eggs (uncoded)rashAllergyActivesulfa (uncoded)rashAllergyActive Reason For Referral No Information Medications Medication SIG (Take, Route, Frequency, Duration) Notes Start Date End Date Status diclofenac sodium 75 mg 1 tab(s) orally 2 times a day; Duration: 30 day(s) 3ActiveMobic 15 mg1 tab(s) orally once a day; Duration: 45 days 3ActiveoxyBUTYninActivelisinoprilActivemetFORMINActivediclofenac sodium 75 mg1 tab(s) orally 2 times a day; Duration: 30 day(s)3Activetamoxifen ActivemegestrolActivemetoprololActiveglimepirideActive Social History Tobacco Use: Social History Observation Description Date Details (start date - stop date) Never Smoker NA - NA Smoking History Question Answer Notes Smoking Status NonSmoker Problems Problem Type SNOMED Code ICD Code Onset Dates Problem Status W/U Status Risk Notes Problem Arthralgia of the pe lvic region and thigh (638110621) Right hip pain (M25.551) ActiveconfirmedProblemLocalized, primary osteoarthritis of the pelvic region and thigh (399787009)Bilateral primary osteoarthritis of hip (M16.0)Activeconfirmed ProblemPeriostitis (31426267)Periostitis (M86.9)Activeconfirmed Plan Of Treatment No Information Insurance Providers Payer Name Payer Address Payer Phone Subscriber Number Group Number Insured Name Patient Relationship to Insured Coverage Start Date Coverage End Date Medicare [employer] [address] [place] [address] [id number] Noa PRIETO - patient [place] [id number], JOYCESsancho - patient is the insured Medical (General) History Medical History History ICD Code Cancer Type Yes Diabetes: YesHigh Blood Pressure: YesDrug Allergies: YesSurgical History Surgery Date(Month/Year)
--- OUTSIDE RECORDS SUMMARY | 2025-04-24 20:22 | XMS_ITS | Patient Health Record ---
Author Organization [facility] vices Address [address] [place], [place] [address] Care Team Providers Care Acid Painter Name Role Phone MckeonEmelyn zapiengail Primary Care Provider Josephine Liu Unavailable [phone] Nina Dong Unavailable [phone] Jaki Chavez Unavailable [phone] Danelle Harrington Unavailable Allergies Allergen (clinical drug ingredient) Drug/Non Drug Allergy documented on EMR Reaction Allergy Type Onset Date Status egg (chicken) allergenic extract Whole Egg (Diagnostic ) Hives , Rash Drug Allergy ActivesulfacetamideSulfacetamidehivesDrug AllergyActive Results Component Value Reference Range Flag Notes POCT A1C Reviewed date:04/20/2025 09:02:51 AM Interpretation:6.1 Performing Lab: Notes/Report: POCT A1C Reviewed date:05/14/2024 10:44:25 AM Interpretation: Performing Lab: Notes/Report: POCT A1C Reviewed date:11/17/2024 08:51:20 AM Interpretation: Performing Lab: Notes/Report: CBC NO DIFF Reviewed date:12/02/2024 08:40:41 AM Interpretation: Performing Lab: Notes/Report: WBC 5.5 3.6-11.0 THDS/CMM RBC3.723.80-5.20 MILL/NEYPHTN12.211.9-16.0 G/DLHCT36.735-47 %KGF2703-478 fLMCH 32.826.0-33.0 vsVLCA14.232.0-35.0 g/dlRDW13.511.2-14.8 %YYUCPVTR188111-426 THOUS/CMM UNLESS OTHERWISE INDICATED, ALL TESTING PERFORMED AT: [employer], [employer]. [address] [place] [address] FUTURES TRADER: STEPAN BARKLEY M.D. CLIA NUMBER [id number] CAP ACCREDITATION AUID [id number] COMPREHENSIVE METABOLIC PANEL WITH GFR Reviewed date:12/02/2024 08:40:54 AM Interpretation: Performing Lab: Notes/Report:RJLIFSD8114-567 mg/xZJYW609-41 mg/dLCALCIUM8.88.6-10.5 mg/dL CREATININE, BLOOD1.120.51-1.15 mg/dLeGFR (2020 CKD-EPI)53>59 mL/min/1.73m2L The NKF-ASN recommends use of cystatin C to confirm eGFR in adults at risk for CKD. Cystatin C can be used alone or paired with repeat creatinine measurement to increase the accuracy of estimated GFR. PSUXZY174240-547 mmol/LPOTASSIUM4.03.5-5.4 mmol/NFGZCIFXB56887-827 mmol/RWEL900 18-32 mmol/LANION VYO452-51 mmol/LT. BILIRUBIN0.4<1.3 mg/dLALK GEMF8223-542 U/L KYT-CUNF982-30 U/KBQY-UEUL285-00 U/LT. PROTEIN6.86.0-8.3 g/dLALBUMIN3.53.5-5.2 g/dLLIPID PANEL WITH REFLEX TO DIRECT LDL Reviewed date:12/02/2024 08:41:04 AM Interpretation: Performing Lab: Notes/Report:FJBWHXTGLEX296496-466 mg/sHREKRRJSIQNFDT82310-445 mg/dLVLDL-CHOL, BTANHMDDFI89<30 mg/dLHDL-CHOL39>=50 mg/dLLLDL-CHOL, HJXJHJLHCG10<130 mg/dL ADULT LDL CHOLESTEROL CLASSIFICATION <100mg/dL Optimal 100-129mg/dL Near/Above Optimal 130-159mg/dL Borderline High >160mg/dL High Risk Desirable range <100 mg/dL for patients with CHD or diabetes and <70 mg/dL for diabetic patients with known heart disease. Direct LDL is recommended for patients with triglycerides >400. LDL/HDL1.9<4.1 LDL/HDL RATIO MALE FEMALE below average risk <2.3 <2.3 average risk <5.0 <4.1 moderate risk <7.1 <5.6 high risk >7.1 >5.6 CHOL/HDL3.62.0-4.5POCT A1C Reviewed date:08/17/2024 09:14:23 AM Interpretation: Performing Lab: Notes/Report: Reason For Referral No Information Medications Medication SIG (Take, Route, Frequency, Duration) Notes Start Date End Date Status Lasix 20 MG Tablet 1 tablet Orally Once a day; D uration: 30 days 03/16/2024Not-Taking/PRNmetFORMIN HCl 500 MG Tablet1 tablet with a meal Orally twice a day; Duration: 90 daysActiveGabapentin 300 MG Capsule1 capsule Orally twice a day; Duration: 90 days5ActiveLisinopril 40 MG TabletTAKE 1 TABLET BY MOUTH DAILY Orally Once a day; Duration: 90 daysActiveMetoprolol Tartrate 50 MG Tablet1 tablet with food Orally three times a day; Duration: 90 daysActiveMyrbetriq 25 MG Tablet Extended Release 24 Hour1 tablet Orally Once a day; Duration: 30 days5ActiveMultivitamin Adults 50+ - Tabletas directed Orally dailyActive Social History Tobacco Use: Social History Observation Description Date Details (start date - stop date) Never Smoker NA - NA Sex Assigned At : Social History Observation Description Sex Assigned At Female Social History Social DeterminantsSocial InfoQuestionAnswerNotesPRAPAREDate Completed/Updated: 08/17/2024patient entered dataWhat is your current housing situation?I have housingpatient entered dataAre you worried about losing your housing?No patient entered dataWhat is the highest level of school that you have finished?More than high schoolpatient entered dataWhat is your current work situation?Otherwise unemployed but not seeking work (ex. student, retired, disabled, unpaid primary care clinician)patient entered dataHas lack of transportation kept you from medical appointments, meetings, work or from getting things needed for daily living?NoHow often do you see or talk to people that you care about and feel close to? (For example: talkingto friends on the phone, visiting friends or family, going to nondenominational or club meetings)Less than once a weekpatient entered dataHow stressed are you? Stress is when someone feels tense, nervous, anxious, or can't sleep at nightbecause their mind is troubledA little bitpatient entered dataIn the past year have you spent more than 2 nights in a row in a half-way, intermediate, usp center, orjuvenile correctional facility?Nopatient entered dataAre you a refugee?Nopatient entered dataWhat country are you from?[place] Statespatient entered dataDo you feel physically and emotionally safe where you currently live?Yespatient entered dataIn the past year, have you been afraid of your partner or ex-partner?Nopatient entered dataPRAPARE Score:6Sexual History:Social Info QuestionAnswerNotesFamily PlanningAre you or your partner planning on becoming in the next year if not already ?No? What type of contraception are you using?Female SterilizationPC and UDS DemographicsSocial InfoQuestion AnswerNotesPrimary [facility] QuestionsDo you have any barriers to learning?Nonepatient entered dataWhat is your preferred method of learning? Talking in a small grouppatient entered dataHow often do you need to have someone help you read instructions?Neverpatient entered dataHousehold:Social InfoQuestionAnswerNotesHouseholdNumber of adults in household:2Number of children in household:0Drugs/Alcohol/Caffeine:Social InfoQuestionAnswerNotes DrugsHave you used drugs other than those for medical reasons in the past 12 months?NoCAGE-AID Questionnaire (2018 Edition)Have you ever felt that you ought to cut down on your drinking or drug use?Nopatient entered dataHave people annoyed you by criticizing your drinking or drug use?Nopatient entered data Have you ever felt bad or guilty about your drinking or drug use?Nopatient entered dataHave you ever had a drink or used drugs first thing in the morning to steady your nerves or to get rid of a hangover?Nopatient entered dataCAGE- AID Nymyj1HuwjsinmfrbkvoEdxzzdudVubkstwvIkolom:noneTobacco Use:Social Info QuestionAnswerNotesTobacco Use/SmokingTobacco use:nonsmokerpatient entered dataAdditional DetailsCategorySocial InfoOptionsDetailsMiscellaneous:Occupation: retiredCulture/Language BarrierNoEducation LevelGrade 7-12Barriers to Learning NoneLearning PreferenceDoing or practicingHow often do you need to have someone help you read instructionsNeverSafetyPatient feels safe in relationshipsYes Drugs/Alcohol/Caffeine:Do you smoke marijuana?DeniesDo you drink alcohol?No Problems Problem Type SNOMED Code ICD Code Onset Dates Problem Status W/U Status Risk Notes Problem Diabetic renal disease (25177126 3) Type 2 diabetes mellitus with diabetic chronic kidney disease (E11.22) ActiveconfirmedProblemChronic kidney disease stage 3A (disorder) (063859446) Chronic kidney disease, stage 3a (N18.31)ActiveconfirmedProblemMorbid obesity (788144297)Obesity, morbid, BMI 50 or higher (E66.01)ActiveconfirmedProblemCyst of uterine adnexa (38971118597438)Adnexal cyst (N94.9)ActiveconfirmedProblemBody mass index 40+ - severely obese (767076267)BMI 50.0-59.9, adult (Z68.43)Active confirmedProblemLymphedema (277347546)Lymphedema of both lower extremities (I89.0)ActiveconfirmedREFER TO VASC SURG FOR FURTHER EVALProblemDiabetic peripheral neuropathy (947483305)Diabetic peripheral neuropathy (E11.42)Active confirmedProblemCirrhosis of liver (43452144)Cirrhosis of liver (K74.60)Active confirmedshe is NOT symptomatic and we are still trying to track down the results of the tests done by her change consultant, Dr Cohen.ProblemPrimary hypertension (19411941)Primary hypertension (I10)ActiveconfirmedProblem Overactive bladder (146833325)Overactive bladder (N32.81)Activeconfirmed Comment:STABLE on current regimen.ProblemDiabetic neuropathy (633952111)Diabetic neuropathy (E11.40)ActiveconfirmedComment:Foot, leg; paresthesias improved with amitriptyline, so continue that. will get Xray of theleft foot this next week then follow up.,ProblemPeripheral vascular disease (447911767)PAD (peripheral artery disease) (I73.9)ActiveconfirmedComment:Instructed on wearing JEFFERSON hose during the day, and then, can take them off before bed, Vital Signs Heart Rate 55 /min 04/20/2025 Del Cid Gijason valenzuela 04/20/2025 08:50:35 AM EST > Temperature 98.2 degrees Fahrenheit 04/20/2025 Tom vicente Asia 04/20/2025 08:50:35 AM EST > Respiratory Rate 20 /min 04/20/2025 Rafael Del Cid 04/20/2025 08:50:35 AM EST > Blood pressure diastolic 78 mm Hg [facility]20[facility] 08:50:35 AM EST > Oximetry 96 % 04/20/2025 Del Cid Gijason valenzuela 04/20/2025 08:50:35 AM EST > Height-cm 158.75 cm 04/20/2025 Nehemias Gijason valenzuela 04/20/2025 08:50:35 AM EST > Weight-kg 135.9 kg 04/20/2025 Del CidGijason valenzuela 04/20/2025 08:50:35 AM EST > Height 62.50 in 04/20/2025 Nehemias Gijason valenzuela 04/20/2025 08:50:35 AM EST > Blood pressure systolic 126 mm Hg 04/20/2025 Asia Wray 04/20/2025 08:50:35 AM EST > Weight 299.6 lbs 04/20/2025 Nehemias Gijason valenzuela 04/20/2025 08:50:35 AM EST > BMI 53.92 kg/m2 04/20/2025 Zheng Del Cid 04/20/2025 08:50:35 AM EST > Encounters Encounter Location Date Provider Diagnosis Main [address] [place] [id number] 05/14/2024 Jaki Chavez Type 2 diabetes mellitus without complication, without long-term current use of insulin E11.9 and adjunct faculty for medical terminology (current) use of oral hypoglycemic drugs Z79.84 Main [address] [place], [place] [id number] 08/17/2024 Danellelona Harrington Type 2 diabetes mellitus with diabetic chronic kidney disease E11.22 ; HTN (hypertension), benign I10 ; Overactive bladder N32.81 ; Chronic kidney disease, stage 3a N18.31 ; Left leg pain M79.605 ; BMI 50.0-59.9, adult Z68.43 and Obesity, morbid, BMI 50 or higher E66.[address] [id number] 11/17/2024 Nina Iker Type 2 diabetes mellitus with diabetic chronic kidney disease E11.22 and HTN (hypertension), benign I10 [address] [id number] 02/16/2025 Melodiechance Mckeon Type 2 diabetes mellitus with diabetic chronic kidney disease E11.22 ; Primary hypertension I10 ; Left leg pain M79.605 ; Colon cancer screening declined Z53.20 and Screening mammogram for breast cancer Z12.[address] [id number] 04/20/2025 Melodie Mckeon Well adult exam Z00. 00 ; Screening for diabetes mellitus Z13.1 ; Overactive bladder N32.81 and Colon cancer screening declined Z53.[address] [facility] [address] [place] [id number] 04/21/2025 Melodiechance Mckeon Ggnc6761 [place], [place] [address]/09/2024Katherine MyerholtzLeg swelling M79.15Daws4119 [place], [place] [address]/09/2024Katherine MyerholtzPain in right leg M79.513Svjn9305 [place], [place] [id number] 05/17/2024licia AttysflrfEvzh0557 [place], [place] [address]/18/2024 Jaki Maureen [address]fo[address] [place] [address] 08/24/2024Faith McNealHTN (hypertension), benign I10 ; Type 2 diabetes mellitus without complication, without long-term current use of insulin E11.9 and Leg swelling M79.82[address] [place], [place] [id number]/09/2024Komal Noe [address] [place], [place] [id number]/Katherine MyerholtzLeg swelling M79.97[address] [place] [id number]/Katherine MyerholtzLeft leg pain M79.019[address]qcf[address] [place] [id number]/ Danelle MyerholtzType 2 diabetes mellitus with diabetic chronic kidney disease E11.67Cdte7676 [facility] [place], [place] [id number]/bigail Mckeon Diabetic peripheral neuropathy E11.44[address]no[address] [place] [id number] 02/24/2025bigail HoffmanDiabetic peripheral neuropathy E11.36Isby5265 [place], [place] [id number]/bigail HoffmanDiabetic peripheral neuropathy E11.42 and Leg swelling M79.89 Assessments Encounter Date Diagnosis (ICD Code) Assessment Notes Treatment Notes Treatment Clinical Notes Section Notes 04/05/2025 Diabetic peripheral neuropathy ( ICD-10 - E11.42) 02/23/2025Diabetic peripheral neuropathy (ICD-10 - E11.42)02/16/2025Type 2 diabetes mellitus with diabetic chronic kidney disease (ICD-10 - E11.22) Patient closely monitors blood sugar. Last A1C was 5.7 on 11/17/24 Patient poked twice for A1C today and machine wouldn't read. Patient states BS at home are 60s-90s Stop Glimepiride and continue with metformin. Patient states increased dose of metformin caused GI symptoms Patient will call in BS start to increase above 110s May start Jardiance if A1C goes up. Daily foot exams. 04/20/2025Screening for diabetes mellitus (ICD-10 - Z13.1) Pt has Prediabetes w/ an A1C of 6.1 Discussed risk of getting diagnosed w/ diabetes if unable to make lifestyle changes and modify riskfactors Pt encouraged to reduce carbohydrate, sugar, pop intake, prioritize protein, fruits and vegetables,and water intake. Pt also encouraged to exercise if able to reduce their risk. F/U 3 months & PRN 04/20/2025Well adult exam (ICD-10 - Z00.00) Patient presents to office today for their [...] reduce health risks and promote healthy living. 01/29/2025Type 2 diabetes mellitus with diabetic chronic kidney disease (ICD-10 - E11.22)01/14/2025Left leg pain (ICD-10 - M79.605)01/14/2025Leg swelling (ICD- 10 - M79.89)11/17/2024Type 2 diabetes mellitus with diabetic chronic kidney disease (ICD-10 - E11.22) continue metformin decreasing glimepride 11/17/2024HTN (hypertension), benign (ICD-10 - I10)02/16/2025Primary hypertension (ICD-10 - I10)HTN stable. Will continue current medications. Encouraged healthy diet and exercise. F/u 3 months & PRN08/24/2024HTN (hypertension), benign (ICD-10 - I10)02/24/2025Diabetic peripheral neuropathy (ICD-10 - E11.42)05/14/2024Type 2 diabetes mellitus without complication, without long-term current use of insulin (ICD-10 - E11.9)A1C on 10/25/22 was 7.1%. Discussed that NSAIDS do not typically elevated glucose levels. Does not want to reduce Celebrex dose to 100 mg. With A1C of 7.3% would not change medication regimen but she is concerned regarding the three fasting glucose levels of 160. Cannot increase Metformin to 850 mg BID as she cannot tolerate. Will increase morning dose of Glimiperide to 3 mg. Instructed to closelymonitor glucose levels each morning and reduce dose back to 2 mg if fasting glucose levels are <85 or if she has hypoglycemic symptoms. Is agreeable to having labs drawn today. Renal profile on 03/6824: 22/.42/37, LDL 63. Will check CMP today and assess need for nephrology referral. Currently on Lisinopril 40 mg daily, not on statin.05/14/2024Long term (current) use of oral hypoglycemic drugs (ICD- 10 - Z79.84)4Pain in right leg (ICD-10 - M79.604)05/11/2024Leg swelling (ICD-10 - M79.89)08/17/2024Type 2 diabetes mellitus with diabetic chronic kidney disease (ICD-10 - E11.22)DM stable. Will continue current medications. Encouraged healthy diet and exercise. F/u 3 months & PRN08/17/2024HTN (hypertension), benign (ICD-10 - I10)HTN stable. Will continue current medications. Encouraged healthy diet and exercise. F/u 3 months & PRN 08/17/2024Overactive bladder (ICD-10 - N32.81)Will have pt take oxybutynin 1 tablet in the morning and 2 tablets to help with nighttime symptoms.F/u 3 months & PRN08/24/2024Type 2 diabetes mellitus without complication, without long-term current use of insulin (ICD-10 - E11.9)04/05/2025Leg swelling (ICD-10 - M79.89) 02/16/2025Left leg pain (ICD-10 - M79.605) Progressively worse leg pain, numbness, and tingling Stop Celebrex due to last kidney function Start gabapentin once daily Will increase in 1 week if needed. Patient to call the office May take tylenol if needed. Continue to use the walker Educated on risks and benefits of gabapentin OAARS reviewed CancelRx Response got Denied on 2025-02-25 08:22:03 for 'Gabapentin 300 MG Capsule'Pharmacy Notes: Request already responded to by other means (e.g. phone or fax). 04/20/2025Overactive bladder (ICD-10 - N32.81) Insurance company would like to stop oxybutynin and recommended Myrbetriq if a safe alternative Patient would like to try to switch due to the cost of oxybutynin after the first of the year Stop oxybutynin and start myrbetriq 04/20/2025olon cancer screening declined (ICD-10 - Z53.20)Educated on the importance of coloncancer screenings, patient verbalizes understanding and ffdevfij73/16/2025olon cancer screening declined (ICD-10 - Z53.20)Educated on the importance and diyurkac84/24/2025Leg swelling (ICD-10 - M79.89)08/17/2024 Chronic kidney disease, stage 3a (ICD-10 - N18.31)08/17/2024Left leg pain (ICD- 10 - M79.605)Will increase celebrex to twice a day to help with sympotms. F/u 3 months & PRN02/16/2025Screening mammogram for breast cancer (ICD-10 - Z12.31)To get [facility] Mar.08/17/2024MI 50.0-59.9, adult (ICD-10 - Z68.43)Body Mass Index: Care Instructions material was ovrrwcepy05/17/2025Obesity, morbid, BMI 50 or higher (ICD-10 - E66.01) Plan Of Treatment Next Appt Details Provider Name:Melodie black, 07/20/2025 08:30:00 AM, [address] [place], [place], [id number], Insurance Providers Payer Name Payer Address Payer Phone Subscriber Number Group Number Insured Name Patient Relationship to Insured Coverage Start Date Coverage End Date [employer] [address] [address] [place] [phone] [id number] Julita Silva Self - patient is the insured Medical (General) History Medical History History ICD Code Diabetes mellitus, controlled HyperglycemiaHypertensionUterine Cancervaginal cancerSurgical History Surgery Date(Month/Year) Cataract Extraction-Left vaginal cancer reconstructionTubal Ligationcataract right eye extraction 07/10/2021kidney stone poenalq7804/15/2022EXTENSIVE HYSTERECTOMYHospitalization History Reason Date(Month/Year) see surgical hx kidney stone04/15/2022
[2025-04-24 20:54] VITALS: BP 146/78; PULSE 60; O2SAT 97
== END 2025-04-24 23:36 | disposition home or self-care (01) ==
PROVIDERS: Emergency Provider Internal Medicine
DX: M79.605 Pain in left leg (principal); M17.12 Unilateral primary osteoarthritis, left knee; M47.816 Spondylosis without myelopathy or radiculopathy, lumbar region
CPT/HCPCS: 72131; 72170; 73552; 73562; 73590; 76376; 80053; 83735; 99284